=== PATIENT | female | born 1965 | race Caucasian/White ===

== ENCOUNTER → 2023-06-19 12:49 | Outpatient (CLI) | payer BC, SELFPAY ==
--- NOTE | ~2023-06-19 | MM_ITS ---
EXAMINATION: MM screening [facility] BI w [place] HISTORY: Screening mammogram TECHNIQUE: Craniocaudal and mediolateral oblique 3-D tomosynthesis images were obtained and synthetic 2-D images were generated. CAD analysis was submitted and interpreted. COMPARISON: 06/17/2019 bilateral screening mammogram BREAST PARENCHYMAL COMPOSITION: There are scattered areas of fibroglandular density. FINDINGS: There is no evidence of suspicious mass, calcification, or architectural distortion to sugg est malignancy in either breast. There has been no suspicious interval change. IMPRESSION: 1. No mammographic evidence of malignancy. 2. Recommend routine screening mammography in one year. BI-RADS Category 1: Negative Reviewed, dictated and finalized at location A.
== END ==
PROVIDERS: PCP Nurse Practitioner; Visit Provider Nurse Practitioner
DX: Z12.31 Encounter for screening mammogram for malignant neoplasm of breast (principal)
CPT/HCPCS: 77063; 77067

== ENCOUNTER 2024-11-23 12:52 | Outpatient (CLI) | payer BC, SELFPAY ==
--- NOTE | ~2024-11-23 | MM_ITS ---
EXAMINATION: MM screening [facility] BI w [place] HISTORY: Screening TECHNIQUE: Craniocaudal and mediolateral oblique 3-D tomosynthesis images were obtained and synthetic 2-D images were generated. CAD analysis was submitted and interpreted. COMPARISON: Comparison to multiple prior studies sequentially, with oldest reviewed study dated 09/06. BREAST PARENCHYMAL COMPOSITION: Not dense: There are scattered areas of fibroglandular density. FINDINGS: There is no evidence of suspicious mass, calcification, or architectural distortion to sugg est malignancy in either breast. There has been no suspicious interval change. IMPRESSION: 1. No mammographic evidence of malignancy. 2. Recommend routine screening mammography in one year. BI-RADS Category 1: Negative Reviewed, dictated and finalized at location B. Y DIRECTOR
== END 2024-11-23 12:53 | disposition home or self-care (01) ==
LOC: MICIMG 12:53
PROVIDERS: PCP Family Medicine; Visit Provider Nurse Practitioner
DX: Z12.31 Encounter for screening mammogram for malignant neoplasm of breast (principal)
CPT/HCPCS: 77063; 77067

== ENCOUNTER 2024-11-30 08:49 | Outpatient (CLI) | payer BC, SELFPAY ==
--- NOTE | ~2024-11-30 | US_ITS ---
EXAMINATION: US soft tissue abdomen DATE: 11/30/2024 09:07 INDICATION: Unspecified abdominal hernia without obstruction. TECHNIQUE: Multiple grayscale and Doppler ultrasound images of the abdomen were obtained. COMPARISON: None FINDINGS: There are 2 ventral hernias to the right of the umbilicus containing fat. IMPRESSION: 1. Two ventral hernias to the right of the umbilicus containing fat. Reviewed, dictated and finalized at location A. 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
== END 2024-11-30 08:50 | disposition home or self-care (01) ==
LOC: MICIMG 08:49
PROVIDERS: PCP Family Medicine; Visit Provider Family Medicine
DX: K43.9 Ventral hernia without obstruction or gangrene (principal)
CPT/HCPCS: 76705

== ENCOUNTER 2025-01-05 08:12 | Outpatient (CLI) | payer BC, SELFPAY ==
--- NOTE | ~2025-01-05 | CT_ITS ---
Non-contrast CT scan of the Abdomen and Pelvis Clinical indication: Incisional hernia Technique: 2.5 mm axial scans were obtained through the abdomen and pelvis without intravenous or or al contrast. Dose reduction technique was used on this scan by utilizing automated exposure control a nd iterative reconstruction technique. The dose-length product (DLP) was 896.81 mGy-cm. Findings: Images through the lung bases reveal minimal pericardial effusion. There is no evidence of renal or ureteral calculi. The kidneys and the ureters are nondilated. The liver, spleen, pancreas, gallbladder, and adrenals appear normal. There is no aortic aneurysm. There is no evidence of bowel obstruction. There are small ventral fat-containing hernia present supe rior to the umbilicus. Additional small umbilical fat-containing hernia present. Images through the pelvis were performed. There is no evidence of ascites or lymphadenopathy. Urinary bladder unremarkable. No pelvic mass seen. No ascites. Impression: Small fat-containing umbilical hernia. Additional very small fat-containing ventral hernia superior t o the umbilicus. Minimal pericardial effusion. Reviewed, dictated and finalized at location . Impression: Small fat-containing umbilical hernia. Additional very small fat-containing ange tral hernia superior to the umbilicus. Minimal pericardial effusion.
== END 2025-01-05 08:13 | disposition home or self-care (01) ==
LOC: MICIMG 08:12
PROVIDERS: PCP Surgery; Visit Provider Surgery
DX: K42.9 Umbilical hernia without obstruction or gangrene (principal); K43.9 Ventral hernia without obstruction or gangrene; K43.2 Incisional hernia without obstruction or gangrene
CPT/HCPCS: 74176

== ENCOUNTER 2025-01-17 09:28 | Outpatient (CLI) | payer BC, SELFPAY ==
--- NOTE | 2025-01-17 09:39 | ECG_ITS ---
Test Date: 2025-01-17 09:57:22 Measurements Intervals [place] Rate: 64 P: 64 MN: 199 QRS: 35 QRSD: 97 T: 39 QT: 428 QTc: 443 Interpretive Statements SINUS RHYTHM LOW QRS VOLTAGE IN PRECORDIAL LEADS MINIMAL Q WAVES- INFERIOR LEADS BASELINE ARTIFACT- I, III BORDERLINE ECG No previous ECG available for comparison Electronically Signed On 01-17-2025 10:00:32 CDT by Wyatt Mejia D.O.
--- OUTSIDE RECORDS SUMMARY | 2025-01-17 10:26 | XMS_ITS | Encounter Summary ---
Author Organization [facility] Address 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 Gender Identity Not on file Sexual Orientation Not on file documented as of this encounter Plan of Treatment Not on file documented as of this encounter Procedures Procedure Name Priority Date/Time Associated Diagnosis Comments CBC WITH DIFFERENTIAL Routine 03/06/2008 5:01 AM CDT BASIC METABOLIC PANEL Routine 03/06/2008 5:01 AM CDT CBC WITH DIFFERENTIAL Routine 03/01/2008 5:35 AM CDT COMPREHENSIVE METABOLIC PANEL Routine 03/01/2008 5:35 AM CDT CBC WITH DIFFERENTIAL Routine 02/26/2008 5:18 AM CDT CBC WITH DIFFERENTIAL Routine 02/25/2008 6:40 AM CDT COMPREHENSIVE METABOLIC PANEL Routine 02/25/2008 6:40 AM CDT documented in this encounter Results * (ABNORMAL) CBC WITH DIFFERENTIAL (03/06/2008 5:01 AM CDT) RBC 3.90 3.90 - 4.90 M/uL [facility] MCHC 30.8(L) 31.5 - 35.5 % [facility] MCV 89.0 82.0 - 99.0 fL [facility] PLATELETS 457(H) 140 - 350 K/uL [facility] HEMOGLOBIN 10.7(L) 11.8 - 14.8 g/dL [facility] RDW 13.9 11.5 - 14.5 % [facility] WBC 6.2 4.0 - 9.8 K/uL [facility] MCH 27.4 27.2 - 32.6 pg [facility] MPV 9.2(L) 9.3 - 12.4 fL [facility] HEMATOCRIT 34.7(L) 35.5 - 44.0 % [facility] RDW-STDEV 44.7 37.1 - 48.7 fL [facility] MONOCYTE ABSOLUTE 0.59 0.10 - 1.30 K/uL [facility] NEUTROPHILS 39(L) 45 - 70 % [facility] NEUTROPHIL ABSOLUTE 2.40 1.90 - 7.00 K/uL [facility] EOSINOPHILS 2 0 - 7 % [facility] EOSINOPHIL ABSOLUTE 0.15 0.00 - 0.70 K/uL [facility] LYMPHOCYTES 49(H) 16 - 45 % [facility] LYMPHOCYTE ABSOLUTE 3.03 0.70 - 4.50 K/uL [facility] BASOPHILS 1 0 - 2 % [facility] BASOPHILS ABSOLUTE 0.04 0.00 - 0.20 K/uL [facility] MONOCYTES 10 3 - 13 % [facility] Blood specimen (specimen) 03/06/2008 5:01 AM CDT 03/06/2008 6:31 AM CDT Narrative INTERFACE SYSTEM - 03/06/2008 7:51 AM CDT RM 128 us Subha Sosa MD HEMATOLOGY ORDERABLES Edited INTERFACE SYSTEM Refer to clinic/hospital department [facility] CLIA# [id number] [address] [place], [place] [address] * BASIC METABOLIC PANEL (03/06/2008 5:01 AM CDT) GLUCOSE 80 65 - 99 mg/dL [facility] SODIUM 138 135 - 145 mmol/L [facility] CALCIUM 8.5 8.4 - 10.2 mg/dL [facility] CO2 24 22 - 30 mmol/L [facility] CREATININE 0.65 0.51 - 0.95 mg/dL [facility] POTASSIUM 4.6 3.5 - 4.9 mmol/L [facility] BUN 8 6 - 20 mg/dL [facility] CHLORIDE 102 96 - 108 mmol/L [facility] GFR, >60 >=60 mL/min/1.7 sq meter [facility] GFR >60 >=60 mL/min/1.7 sq meter [facility] Comment: Modification of Diet in Renal Disease (MDRD) study formula. Estimated GFR rate interpretative information for both Americans and non- Americans is available on the [facility] Intranet at: [email or web address] Select: Lab Policies and Procedures Select: Reference Ranges - GFR Blood specimen (specimen) 03/06/2008 5:01 AM CDT 03/06/2008 6:31 AM CDT Narrative [facility] - 03/06/2008 7:04 AM CDT RM 128 us Subha Sosa MD CHEMISTRY ORDERABLES Edited [facility] CLIA# [id number] [address] [place] [address] * (ABNORMAL) CBC WITH DIFFERENTIAL (03/01/2008 5:35 AM CDT) HEMATOCRIT 30.0(L) 35.5 - 44.0 % [facility] RDW-STDEV 46.9 37.1 - 48.7 fL [facility] RBC 3.33(L) 3.90 - 4.90 M/uL [facility] MCHC 31.0(L) 31.5 - 35.5 % [facility] MCV 90.1 82.0 - 99.0 fL [facility] PLATELETS 461(H) 140 - 350 K/uL [facility] HEMOGLOBIN 9.3(L) 11.8 - 14.8 g/dL [facility] RDW 14.3 11.5 - 14.5 % [facility] WBC 6.2 4.0 - 9.8 K/uL [facility] MCH 27.9 27.2 - 32.6 pg [facility] MPV 8.6(L) 9.3 - 12.4 fL [facility] BASOPHILS ABSOLUTE 0.02 0.00 - 0.20 K/uL [facility] MONOCYTES 10 3 - 13 % [facility] MONOCYTE ABSOLUTE 0.64 0.10 - 1.30 K/uL [facility] NEUTROPHILS 46 45 - 70 % [facility] NEUTROPHIL ABSOLUTE 2.86 1.90 - 7.00 K/uL [facility] EOSINOPHILS 8(H) 0 - 7 % [facility] EOSINOPHIL ABSOLUTE 0.49 0.00 - 0.70 K/uL [facility] LYMPHOCYTES 35 16 - 45 % [facility] LYMPHOCYTE ABSOLUTE 2.19 0.70 - 4.50 K/uL [facility] BASOPHILS 0 0 - 2 % [facility] Blood specimen (specimen) 03/01/2008 5:35 AM CDT 03/01/2008 6:53 AM CDT Narrative INTERFACE SYSTEM - 03/01/2008 7:30 AM CDT RM 128 Kai Arriaza MD HEMATOLOGY ORDERABLES Edited INTERFACE SYSTEM Refer to clinic/hospital department [facility] CLIA# [id number] [address] [place] [place] [address] * (ABNORMAL) COMPREHENSIVE METABOLIC PANEL (03/01/2008 5:35 AM CDT) ALKALINE PHOSPHATASE 73 35 - 104 U/L [facility] BILIRUBIN TOTAL 0.2 0.2 - 1.0 mg/dL [facility] CO2 24 22 - 30 mmol/L [facility] TOTAL PROTEIN 5.5(L) 6.3 - 8.6 g/dL [facility] POTASSIUM 4.1 3.5 - 4.9 mmol/L [facility] GLUCOSE 77 65 - 99 mg/dL [facility] AST 12 12 - 32 U/L [facility] BUN 7 6 - 20 mg/dL [facility] CALCIUM 7.9(L) 8.4 - 10.2 mg/dL [facility] CHLORIDE 105 96 - 108 mmol/L [facility] ALBUMIN 2.5(L) 3.4 - 4.8 g/dL [facility] CREATININE 0.62 0.51 - 0.95 mg/dL [facility] SODIUM 138 135 - 145 mmol/L [facility] ALT 11 0 - 31 U/L [facility] GFR, >60 >=60 mL/min/1. 7 sq meter [facility] GFR >60 >=60 mL/min/1. 7 sq meter [facility] Comment: Modification of Diet in Renal Disease (MDRD) study formula. Estimated GFR rate interpretative information for both Americans and non- Americans is available on the [facility] Intranet at: [email or web address] Select: Lab Policies and Procedures Select: Reference Ranges - GFR Blood specimen (specimen) 03/01/2008 5:35 AM CDT 03/01/2008 6:53 AM CDT Narrative [facility] - 03/01/2008 7:34 AM CDT 128 Kai Arriaza MD CHEMISTRY ORDERABLES Edited [facility] CLIA# [id number] [address] [place], [place] [address] * (ABNORMAL) CBC WITH DIFFERENTIAL (02/26/2008 5:18 AM CDT) HEMATOCRIT 28.7(L) 35.5 - 44.0 % [facility] WBC 5.6 4.0 - 9.8 K/uL [facility] MCHC 30.3(L) 31.5 - 35.5 % [facility] MPV 8.3(L) 9.3 - 12.4 fL [facility] HEMOGLOBIN 8.7(L) 11.8 - 14.8 g/dL [facility] RDW-STDEV 47.1 37.1 - 48.7 fL [facility] MCH 27.2 27.2 - 32.6 pg [facility] PLATELETS 529(H) 140 - 350 K/uL [facility] MCV 89.7 82.0 - 99.0 fL [facility] RBC 3.20(L) 3.90 - 4.90 M/uL [facility] RDW 14.3 11.5 - 14.5 % [facility] LYMPHOCYTES 35 16 - 45 % [facility] LYMPHOCYTE ABSOLUTE 1.94 0.70 - 4.50 K/uL [facility] BASOPHILS 1 0 - 2 % [facility] BASOPHILS ABSOLUTE 0.03 0.00 - 0.20 K/uL [facility] MONOCYTES 12 3 - 13 % [facility] MONOCYTE ABSOLUTE 0.67 0.10 - 1.30 K/uL [facility] NEUTROPHILS 49 45 - 70 % [facility] NEUTROPHIL ABSOLUTE 2.70 1.90 - 7.00 K/uL [facility] EOSINOPHILS 4 0 - 7 % [facility] EOSINOPHIL ABSOLUTE 0.23 0.00 - 0.70 K/uL [facility] Blood specimen (specimen) 02/26/2008 5:18 AM CDT 02/26/2008 6:36 AM CDT Narrative INTERFACE SYSTEM - 02/26/2008 8:08 AM CDT 128 us Subha Sosa MD HEMATOLOGY ORDERABLES Edited INTERFACE SYSTEM Refer to clinic/hospital department [facility] CLIA# [id number] [address] [facility] [place], [place] [address] * (ABNORMAL) CBC WITH DIFFERENTIAL (02/25/2008 6:40 AM CDT) MPV 8.4(L) 9.3 - 12.4 fL [facility] HEMATOCRIT 28.6(L) 35.5 - 44.0 % [facility] RDW-STDEV 45.5 37.1 - 48.7 fL [facility] RBC 3.25(L) 3.90 - 4.90 M/uL [facility] MCHC 31.1(L) 31.5 - 35.5 % [facility] MCV 88.0 82.0 - 99.0 fL [facility] PLATELETS 503(H) 140 - 350 K/uL [facility] HEMOGLOBIN 8.9(L) 11.8 - 14.8 g/dL [facility] RDW 14.2 11.5 - 14.5 % [facility] WBC 5.6 4.0 - 9.8 K/uL [facility] MCH 27.4 27.2 - 32.6 pg [facility] BASOPHILS 1 0 - 2 % [facility] BASOPHILS ABSOLUTE 0.04 0.00 - 0.20 K/uL [facility] MONOCYTES 10 3 - 13 % [facility] MONOCYTE ABSOLUTE 0.56 0.10 - 1.30 K/uL [facility] NEUTROPHILS 54 45 - 70 % [facility] NEUTROPHIL ABSOLUTE 3.06 1.90 - 7.00 K/uL [facility] EOSINOPHILS 4 0 - 7 % [facility] EOSINOPHIL ABSOLUTE 0.20 0.00 - 0.70 K/uL [facility] LYMPHOCYTES 32 16 - 45 % [facility] LYMPHOCYTE ABSOLUTE 1.78 0.70 - 4.50 K/uL [facility] Blood specimen (specimen) 02/25/2008 6:40 AM CDT 02/25/2008 7:17 AM CDT Narrative INTERFACE SYSTEM - 02/25/2008 7:58 AM CDT 128 us Osmin Schmidt MD HEMATOLOGY ORDERABLES Edited INTERFACE SYSTEM Refer to clinic/hospital department [facility] CLIA# [id number] [address] [place] [address] * (ABNORMAL) COMPREHENSIVE METABOLIC PANEL (02/25/2008 6:40 AM CDT) CREATININE 0.58 0.51 - 0.95 mg/dL [facility] SODIUM 138 135 - 145 mmol/L [facility] ALT 10 0 - 31 U/L [facility] ALKALINE PHOSPHATASE 73 35 - 104 U/L [facility] BILIRUBIN TOTAL 0.3 0.2 - 1.0 mg/dL [facility] CO2 25 22 - 30 mmol/L [facility] TOTAL PROTEIN 5.0(L) 6.3 - 8.6 g/dL [facility] POTASSIUM 3.7 3.5 - 4.9 mmol/L [facility] GLUCOSE 81 65 - 99 mg/dL [facility] AST 15 12 - 32 U/L [facility] BUN 5(L) 6 - 20 mg/dL [facility] CALCIUM 7.6(L) 8.4 - 10.2 mg/dL [facility] CHLORIDE 104 96 - 108 mmol/L [facility] ALBUMIN 2.1(L) 3.4 - 4.8 g/dL [facility] GFR, >60 >=60 mL/min/1. 7 sq meter [facility] GFR >60 >=60 mL/min/1. 7 sq meter [facility] Comment: Modification of Diet in Renal Disease (MDRD) study formula. Estimated GFR rate interpretative information for both Americans and non- Americans is available on the [facility] Intranet at: [email or web address] Select: Lab Policies and Procedures Select: Reference Ranges - GFR Blood specimen (specimen) 02/25/2008 6:40 AM CDT 02/25/2008 7:17 AM CDT Narrative [facility] - 02/25/2008 7:54 AM CDT RM 128 us Osmin Schmidt MD CHEMISTRY ORDERABLES Edited [facility] CLIA# [id number] [address] [place] [address] documented in this encounter Visit Diagnoses Not on filedocumented in this encounter
--- OUTSIDE RECORDS SUMMARY | 2025-01-17 10:26 | XMS_ITS | Encounter Summary ---
Author Organization [facility] Address 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 Gender Identity Not on file Sexual Orientation Not on file documented as of this encounter Plan of Treatment Not on file documented as of this encounter Procedures Procedure Name Priority Date/Time Associated Diagnosis Comments XR FINGER THUMB RIGHT Routine 03/04/2008 1:15 PM CDT documented in this encounter Results * XR FINGER THUMB RIGHT (03/04/2008 1:15 PM CDT) Anatomical Region Laterality Modality Wrist / Hand Other 03/04/2008 1:15 PM CDT Narrative 03/04/2008 4:08 PM CDT [address] [address] Admit Date: 03/04/2008 ASHLEE FREDERICK Sex: F Admit Prov: CLIFFORD ALVES Date: 1965 Primary Care Prov: PCP, UNKNOWN CMRN: [id number] Room: [facility] N: [id number] IMAGING SERVICES Ordering Prov: N/A Accession Number: [id number] Interpretation RIGHT FINGERS 3 VIEWS, 03/04/2008 Clinical History: Fractures. Findings: There are K wires stabilizing fractures of the first distal phalanx and the fifth middle and proximal phalanges. There is also a fracture of the tuft of the fifth distal phalanx. No calcified callus is identified. Impression: Status post pinning of right first and fifth finger fractures. . Dictated by: SHELLY GARDINER 03/04/2008 13:33 Electronically signed by: SHELLY GARDINER 03/04/2008 16:08 Transcribed: 03/04/2008 14:57 SMM Procedure Note Shelly Gardiner MD - 03/04/2008 [id number] [place], [place] [address] Admit Date: 03/04/2008 ASHLEE FREDERICK Sex: F Admit Prov: CLIFFORD ALVES Date: 1965 Primary Care Prov: PCP, UNKNOWN CMRN: [id number] [id number] [facility] Ordering Prov: N/A Interpretation RIGHT FINGERS 3 VIEWS, 03/04/2008 Clinical History: Fractures. Findings: There are K wires stabilizing fractures of the firstdistal phalanx and the fifth middle and proximal phalanges. There is alsoa fracture of the tuft of the fifth distal phalanx. No calcified callusis identified. Impression: Status post pinning of right first and fifth fingerfractures. . Dictated by: SHELLY GARDINER 03/04/2008 13:33 Electronically signed by: SHELLY GARDINER 03/04/2008 16:08 Transcribed: 03/04/2008 14:57 SMM Clifford Alves MD DIAGNOSTIC IMAGING ORDERABLES Final Result documented in this encounter Visit Diagnoses Diagnosis Other orthopedic aftercare(V54.89) Other orthopedic aftercare documented in this encounter
--- OUTSIDE RECORDS SUMMARY | 2025-01-17 10:26 | XMS_ITS | Encounter Summary ---
Author Organization [facility] Address [address] 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
--- OUTSIDE RECORDS SUMMARY | 2025-01-17 10:26 | XMS_ITS | Continuity of Care Document ---
Author Organization [facility] Address [address] [place] [address] Phone Care Team Providers Care Weather Forcaster Name Role Phone Alexandru York Unavailable Unavailable Advance Directives Directive Yes / No Effective Date File Name No Information Encounters Encounter Description Practice Location Reason(s) For Visit Diagnoses Date Provider Providers Copied on Encounter [facility], [address], [place], [place], [id number], [place] tel:[phone] [facility] No Information 0-200 [address] Do[address] Edward. [address] , [address], [place], [address], [place]. tel:[phone] Referring Provider: Osmin Arellano MD, [address], [place], [address]. tel:[phone] Family History Family Member Type Diagnosis Age At Onset No Information Payers Payer name Insurance type Covered libertarian ID Authoriza tion(s) No Information Social History Type Description Quantity Date Captured Comments Sex Female Smoking Status No Information Chief Complaint And Reason For Visit No Information Reason For Referral Reason For Referral No Information History Of Present Illness Encounter Date Complaint History Of Prese nt Illness No Information Functional Status Date Functional Assessmen t No Information Instructions Date Instruction Additional Infor mation No Information Assessments Type Assessment Date No Information Patient Care Teams Name Effective Dates (start - stop) Status Members No Information
--- OUTSIDE RECORDS SUMMARY | 2025-01-17 10:26 | XMS_ITS | Encounter Summary ---
Author Organization [facility] Address [address] [place] [address] Care Team Providers Care Professional Application Designer Name Role Phone Unavailable Primary Care Provider Unavailabl e Encounter Details Date Type Department Care Team (Late st Contact Info) Description 12/20/2008 Outpatient Historical HIS ORTHOPEDIC TRAUMA JemRaul, DO [address] [facility] [address] [place] [address] Social History Tobacco Use Types Packs/Day Years Used Date Smoking Tobacco: Never Alcohol Use Standard Drinks/Week Comments Not Asked 0 (1 standard drink = 0.6 oz pur e alcohol) Comments No Sex and Gender Information Value Date Recorded Sex Assigned at Not on file 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
--- OUTSIDE RECORDS SUMMARY | 2025-01-17 10:26 | XMS_ITS | Encounter Summary ---
Author Organization [facility] Address 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 Gender Identity Not on file Sexual Orientation Not on file documented as of this encounter Plan of Treatment Not on file documented as of this encounter Procedures Procedure Name Priority Date/Time Associated Diagnosis Comments XR WRIST 3+ VW LEFT Routine 06/28/2008 3 :04 PM CDT documented in this encounter Results * XR WRIST 3+ VW LEFT (06/28/2008 3:04 PM CDT) Anatomical Region Laterality Modality Wrist / Hand Other 06/28/2008 3:04 PM CDT Narrative 07/04/2008 1:59 PM CDT [facility] [place], [place] [address] [place], [place] [address] Admit Date: 06/28/2008 ASHLEE FREDERICK Sex: F Admit Prov: JANES PARISH Date: 1965 Primary Care Prov: CMRN: [id number] Room: [facility] SSN: [id number] IMAGING SERVICES Ordering Prov: JANES PARISH Accession Number: [id number] Interpretation This procedure was performed at the request of the orthopedic physician. Please see the orthopedic physician s report for details, which can be found in the patient s medical record. _ Dictated by: RADIOLOGY, DEPARTMENT O Electronically signed by: RADIOLOGY, DEPARTMENT 07/04/2008 13:56 Transcribed: 07/04/2008 13:52 AMK Procedure Note Radiology, Radiologist - 07/04/2008 [facility] [place], [place] [address] [place], [place] [address] Admit Date: 06/28/2008 ASHLEE FREDERICK Sex: F Admit Prov: JANES PARISH Date: 1965 Primary Care Prov: CMRN: [id number] Room: [facility] SSN: [id number] IMAGING SERVICES Ordering Prov: JANES PARISH Interpretation This procedure was performed at the request of the orthopedicphysician. Please see the orthopedic physician s report for details, which canbe found in the patient s medical record. _ Dictated by: RADIOLOGY, DEPARTMENT O Electronically signed by: RADIOLOGY, DEPARTMENT 07/04/2008 13:56 Transcribed: 07/04/2008 13:52 AMK us Janes Parish DO DIAGNOSTIC IMAGING ORDERABLES Final Result documented in this encounter Visit Diagnoses Not on filedocumented in this encounter
--- OUTSIDE RECORDS SUMMARY | 2025-01-17 10:26 | XMS_ITS | Encounter Summary ---
Author Organization [facility] Address [address] [place] [address] Care Team Providers Care Salesforce Business Analyst Name Role Phone Unavailable Primary Care Provider Unavailabl e Encounter Details Date Type Department Care Team (Late st Contact Info) Description 04/19/2008 Outpatient Historical HIS ORTHOPEDIC TRAUMA Janes Parish, DO [address] 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 Gender Identity Not on file Sexual Orientation Not on file documented as of this encounter Plan of Treatment Not on file documented as of this encounter Procedures Procedure Name Priority Date/Time Associated Diagnosis Comments XR WRIST 3+ VW LEFT Routine 04/19/2008 1 2:55 PM CDT documented in this encounter Results * XR WRIST 3+ VW LEFT (04/19/2008 12:55 PM CDT) Anatomical Region Laterality Modality Wrist / Hand Other 04/19/2008 12:5 5 PM CDT Narrative 06/02/2008 8:40 PM CDT [facility] [address] [place], [place] [address] Admit Date: 04/19/2008 ASHLEE FREDERICK Sex: F Admit Prov: JANES PARISH Date: 1965 Primary Care Prov: CMRN: [id number] Room: [facility] SSN: [id number] IMAGING SERVICES Ordering Prov: JANES PARISH Accession Number: [id number] Interpretation This procedure was performed at the request of the orthopedic physician. Please see the orthopedic physician s report for details, which can be found in the patient s medical record. Dictated by: RADIOLOGY, DEPARTMENT O Electronically signed by: RADIOLOGY, DEPARTMENT 06/02/2008 20:39 Transcribed: 06/02/2008 20:20 AMK Procedure Note Provider, Historical - 06/02/2008 [facility] [address] [place], [place] [address] Admit Date: 04/19/2008 ASHLEE FREDERICK Sex: F Admit Prov: JANES PARISH Date: 1965 Primary Care Prov: CMRN: [id number] Room: [facility] SSN: [id number] IMAGING SERVICES Ordering Prov: JANES PARISH Interpretation This procedure was performed at the request of the orthopedicphysician. Please see the orthopedic physician s report for details, which canbe found in the patient s medical record. Dictated by: RADIOLOGY, DEPARTMENT O Electronically signed by: RADIOLOGY, DEPARTMENT 06/02/2008 20:39 Transcribed: 06/02/2008 20:20 AMK us Janes Parish DO DIAGNOSTIC IMAGING ORDERABLES Final Result documented in this encounter Visit Diagnoses Not on filedocumented in this encounter
--- OUTSIDE RECORDS SUMMARY | 2025-01-17 10:26 | XMS_ITS | Data Portability ---
Author Organization [facility], Brady Address [address] [place] [address] Care Team Providers Care Dish Carrier Name Role Phone BILL FLOYD Primary Care Provider Assessment Encounter Date Assessment Date Assessment LastModified by Organization Details LastModified Time 05/15/2023 05/15/2023 Annual gynecological exam performed. Patient will come back in a year unless there are new symptoms. [email or web address] Not available 05/15/2023 10:41:42 05/17/2024 05/17/2024 Annual gynecological exam performed. Patient will come back in a year unless there are new symptoms. [email or web address] Not available 05/17/2024 09:27:12 Plan of Treatment Reminders Order Date Submit Date Provider Last Modified By Organization Details Last Modified Time Details Appointments None recorded. Lab None recorded. Referral None recorded. Procedures None recorded. Surgeries None recorded. Imaging MAMMO, screening, digital, bilateral 2023 024 [facility], [address], [place], [address], 5 05:01:19 MAMMO, screening, digital, bilateral 2022 023 [facility], [address], [place], [address], 3 15:17:41 Medication Orders None recorded. Patient TargetsNo targets recorded. Patient InstructionsNo instructions recorded. Reason for Referral None Reported. Results Created Date Observation Date Name Description Value Unit Range Abnormal Flag Note LastModifiedBy Organization Detail LastModifiedTime 05/15/20 23 05/15/2023 IMAGE GUIDE D PAP AND HPV REGAR DLESS image guided Pap, HPV regardless of Pap result SEE RESULT S BELOW CASE REPOR T: Cytol ogy Gynec ologi david Repor t Case: [id number] Autho eva loera Provi agustina: Thea Domínguez, STEWARD/STEWARDESS THIRD Colle cted: 05/15 1106 Order ing Locat ion: [place] Patho log[facility] Recei luis: 05/16 0613 First Scree n: Michael jacobs, Mindy ed, CT Rescr een: Florencio Harrington, CT Speci men: Scree reji Pap - Image d, Cervi x STATE MENT OF ADEQU ACY: Satis facto ry for evalu ation Trans forma tion zone compo nent absen t The absen ce of an endoc ervic al compo nent was confi rmed by an addit ional scree ner. FINAL DIAGN OSIS: Negat sho for Intra epith elial Lesio n or Melisa walden (NIL) . Funga l organ isms morph ologi liz consi stent with Saloni da spp. Elect eric valencia candace d by Florencio Harrington, CT on 2022 at 10:13 AM ----- ----- ----- ----- ----- ----- ----- ----- ----- ----- ----- ----- ----- ----- ----- ----- ----- ---- HPV RESUL TS: HPV mRNA E6/E7 : No HPV mRNA Detec renard NOTE: This high risk HPV mRNA assay detec ts fourt een high- risk HPV types (16, 18, 31, 33, 35, 39, 45, 51, 52, 56, 58, 59, 66, 68) witho ut diffe renti ation . COMME NT: This speci men was revie wed by a Cytot echno logis t and/o r Patho logis t (as indic ated in this repor t) after evalu ation using the Thinp rep Imagi ng Syste m. CLINI DAVID INFOR MATIO N: Menst rual Statu s: LMP (if appli cable ): Clini david Histo ry/Pr eviou s Pap: Type of Neopl ivan (if appli cable ): Signi fican t Clini david Findi ngs: Other Histo ry: Hormo antonia (if appli cable ): PAP EDUCA DENISSE L NOTE: The Pap Test is a scree reij test with an inher ent false negat sho rate. Liqui d-bas ed sampl ing may decre ase, but will not elimi sierra, false negat sho resul ts. A negat sho resul t does not precl ude the prese nce and/o r devel opmen t of disea se, since the prese nce of abnor mal cells in the sampl e depen ds on the locat ion of the lesio n and sampl ing techn ique. Jerome nued regul ar scree reji is the best metho d of cance r preve ntion . If repor renard cytol ogic findi ng do not corre late with physi david and/o r histo rical findi ngs, furth er inves tigat ion is recom yanci d, as clini liz rodriguez nted. Not Available [facility] (Lab) [address], [place], [address], 05/19/2023 11:17:00 05/17/20 24 05/17/2024 IMAGE GUIDE D PAP AND HPV REGAR DLESS image guided Pap, HPV regardless of Pap result SEE RESULT S BELOW CASE REPOR T: Cytol ogy Gynec ologi david Repor t Case: [id number] Autho ripadminin g Provi agustina: Thea Domínguez, DIONTE Colle cted: 05/17 0955 Order ing Locat ion: [place] Patho [place] Recei luis: 05/18 0751 First Scree n: McBri de, Geraldine ret, CT Speci men: Scree reji Pap - Image d, Cervi x STATE MENT OF ADEQU ACY: Satis facto ry for evalu ation Trans forma tion zone compo nent prese nt ----- ----- ----- ----- ----- ----- ----- ----- ----- ----- ----- ----- ----- ----- ----- ----- ----- ---- FINAL DIAGN OSIS: Negat sho for Intra epith elial Lesio n or Melisa walden (NIL) . Shift in jair sugge stive of bacte rial vagin osis. Elect eric rosa by Geraldine Patel ret, CT on 2023 at 5:30 AM ----- ----- ----- ----- ----- ----- ----- ----- ----- ----- ----- ----- ----- ----- ----- ----- ----- ---- HPV RESUL TS: HPV mRNA E6/E7 : No HPV mRNA Detec renard NOTE: This high risk HPV mRNA assay detec ts fourt een high- risk HPV types (16, 18, 31, 33, 35, 39, 45, 51, 52, 56, 58, 59, 66, 68) witho ut diffe renti ation . COMME NT: This speci men was revie wed by a Cytot echno logis t and/o r Patho logis t (as indic ated in this repor t) after evalu ation using the Thinp rep Imagi ng Syste m. CLINI DAVID INFOR MATIO N: Menst rual Statu s: LMP (if appli cable ): Clini david Histo ry/Pr eviou s Pap: Type of Neopl ivan (if appli cable ): Signi kevin t Clini david Findi ngs: Other Histo ry: Hormo antonia (if appli cable ): PAP EDUCA DENISSE L NOTE: The Pap Test is a scree reji test with an inher ent false negat sho rate. Liqui d-bas ed sampl ing may decre ase, but will not elimi sierra, false negat sho resul ts. A negat sho resul t does not precl ude the prese nce and/o r devel opmen t of disea se, since the prese nce of abnor mal cells in the sampl e depen ds on the locat ion of the lesio n and sampl ing techn ique. Jerome nued regul ar scree reji is the best metho d of cance r preve ntion . If repor renard cytol ogic findi ng do not corre late with physi david and/o r histo rical findi ngs, furth er inves tigat ion is recom yanci d, as clini liz rodriguez nted. Not Available [facility] (Lab) [address], [place], [address], 05/23/2024 06:34:04 06/19/20 23 06/19/2023 MAMMO , scree reji, digit al, bilat eral No observ ation record ed. [facility] [address], [place], [address], 06/19/2023 23:02:44 11/23/19 25 11/23/2024 MAMMO , scree reji, digit al, bilat eral No observ ation record ed. [facility] [address], [place], [address], 11/24/2024 18:56:29 Result Notes None recorded. Problems Name Problem SNOMED Code Status Onset Date Resolution Date Notes Provider Name and Address Organization Details Recorded Time Screening for malignant neoplasm of rectum Active 2018 Encounter for screening for malignant neoplasm of rectum;Pr actice ID: [id number] Not Available [facility] 0 14:23:59 Finding of body mass index 050153612 Active 2018 Body mass index (BMI) 40.0-44.9 , adult;Pra ctice ID: 0001 Not Available [facility] 0 14:23:59 Specializ ed medical examinati on Active 2012 Gynecolog ical Examinati on;Record ed Elsewhere : No Locati on: [facility] So urce: EHR Chron ic: N Practic e ID: 0001 Bill able Time: 09:30:00 AM Not Available [facility] 0 14:[facility]:[address] Concept Active 2017 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) w/o abn findings; Recorded Elsewhere : No Locati on: [facility] So urce: EHR Chron ic: N Practic e ID: 0001 Bill able Time: 09:30:00 AM Not Available [facility] 0 14:23:59 Low grade squamous intraepit helial lesion on cervical Papanicol aou smear 01565855532 105 Active 2016 Low grade squamous intraepit helial lesion on cytologic smear of cervix (LGSIL);R ecorded Elsewhere : No Locati on: [facility] So urce: EHR Chron ic: N Practic e ID: 0001 Bill able Time: 09:15:00 AM Not Available [facility] 0 14:24:[address] Concept Active 2017 Encntr for general adult medical exam w/o abnormal findings; Recorded Elsewhere : No Locati on: [facility] So urce: EHR Chron ic: N Practic e ID: 0001 Bill able Time: 09:30:00 AM Not Available [facility] 0 14:24:00 Screening for malignant neoplasm of cervix Active 2011 Screening for malignant neoplasms of the cervix;Re corded Elsewhere : No Locati on: [facility] So urce: EHR Chron ic: N Practic e ID: 0001 Bill able Time: 01:00:00 PM Not Available [facility] 0 14:24:00 Cytologic finding 862906738 Active 2014 Cervical Pap smear w/ LGSIL;Rec orded Elsewhere : No Locati on: [facility] So urce: EHR Chron ic: N Practic e ID: 0001 Bill able Time: 01:00:00 PM Not Available [facility] 0 14:24:00 Evaluatio n finding Active 2017 Hematuria , unspecifi ed;Record ed Elsewhere : No Locati on: [facility] So urce: EHR Chron ic: N Practic e ID: 0001 Bill able Time: 09:30:00 AM Not Available [facility] 0 14:24:00 Adult health examinati on Active 2013 ROUTINE MEDICAL EXAM;Umer rded Elsewhere : No Locati on: [facility] So urce: EHR Chron ic: N Practic e ID: 0001 Bill able Time: 01:00:00 PM Not Available [facility] 0 14:24:00 Radiologi c finding 949429811 Active 2017 Oth abn and inconclus sho findings on dx imaging of breast;Re corded Elsewhere : No Locati on: [facility] So urce: EHR Chron ic: N Practic e ID: 0001 Bill able Time: 01:05:53 PM Not Available [facility] 0 14:24:00 Hypertrop hy of uterus 115482270 Active 2011 Hypertrop hy of uterus;Re corded Elsewhere : No Locati on: [facility] So urce: EHR Chron ic: N Practic e ID: 0001 Bill able Time: 11:00:00 AM Not Available [facility] 0 14:24:00 Atypical squamous cells of undetermi frederick significa nce on cervical Papanicol aou smear 801299220 Active 2018 Atyp squam cell of undet signfc cyto smr crvx (ASC-US); Recorded Elsewhere : No Locati on: [facility] So urce: EHR Chron ic: N Practic e ID: 0001 Bill able Time: 11:39:14 AM Not Available [facility] 0 14:24:01 Procedure on genitouri nary system Active 2011 Steriliza tion;Umer rded Elsewhere : No Locati on: [facility] So urce: EHR Chron ic: N Practic e ID: 0001 Bill able Time: 10:15:00 AM Not Available [facility] 0 14:24:01 test negative 257370539 Active 2011 examinati on or test, negative result;Re corded Elsewhere : No Locati on: [facility] So urce: EHR Chron ic: N Practic e ID: 0001 Bill able Time: 02:00:00 PM Not Available [facility] 0 14:24:01 Atypical glandular cells on cervical Papanicol aou smear 353573260 Active 2014 Abnormal glandular Papanicol aou smear of cervix;Re corded Elsewhere : No Locati on: [facility] So urce: EHR Chron ic: N Practic e ID: 0001 Bill able Time: 01:00:00 PM Not Available [facility] 0 14:24:01 Cyst of ovary 47394548 Active 2011 Other and unspecifi ed ovarian cyst;Umer rded Elsewhere : No Locati on: [facility] So urce: EHR Chron ic: N Practic e ID: 0001 Bill able Time: 01:00:00 PM Not Available [facility] 0 14:24:02 Screening for malignant neoplasm of colon Active 2010 Special screening for malignant neoplasms , colon;Pra ctice ID: 0001 Not Available [facility] 0 14:24:02 History of tubal ligation 262197985 Active 2012 Tubal ligation status;Pr actice ID: 0001 Not Available [facility] 0 14:24:[address] Concept Active 2017 Encounter for general adult medical exam w abnormal findings; Practice ID: 0001 Not Available [facility] 0 14:24:04 Problem Notes None recorded. Procedures Surgical History Date Name Laterality Status Provider Name and Address Organization Details Recorded Time Appendectomy completed Bettina Dumont [facility] 05/17/2024 09:41:53 Imaging Results Imaging Date Name Status LastModified by Organiz ation Details LastModified Time 06/19/2023 MAMMO, screening, digital, bilateral completed [facility] [address], [place], [address], 06/19/2023 23:02:44 11/23/2024 MAMMO, screening, digital, bilateral completed [facility] [address], [place], [address], 11/24/2024 18:56:29 Procedure Notes None recorded. Medical Equipment None Reported. Allergies No known drug allergies Medications Name Sig Start Date Stop Date Status Note LastModified by Organization Details LastModified Time Vicodin 5 mg-500 mg tablet take 2 Tablet by Oral route for 1 day take 2 hours before procedur e and 1-2 tabs every 4hrs prn 08/13 completed Prescrib ed Elsewher e: No Locat ion: Megan seth [facility] odify By: devon shaw DateTime : 07/30/20 12 09:08:08 AM Not Available Not Available Not Available atovaquon e 250 mg-progua nil 100 mg tablet 05/17 completed Not Available Not Available Not Available lisinopri l 20 mg tablet 05/15 completed Not Available Not Available Not Available chlorthal idone 25 mg tablet take 1 tablet by oral route every day active Not Available Not Available No t Available Celebrex 200 mg capsule take 1 by Oral route po night before and 400mg po morning of procedur e 08/13 completed Prescrib ed Elsewher e: No Locat ion: Lalito rolo [facility] odify By: devon shaw DateTime : 07/30/20 12 09:08:08 AM Not Available Not Available Not Available lisinopri l 10 mg tablet take 1 tablet by oral route every day 05/17 completed Prescrib ed Elsewher e: Yes [facility] By: henry friedmanunter DateTime : 07/08/20 17 09:15:00 AM Not Available Not Available Not Available lisinopri l 5 mg tablet 05/17 completed Not Available Not Available Not Available diazepam 10 mg tablet take 1 tablet (10MG) by oral route 1-2 hours before procedur e 08/13 completed Prescrib ed Elsewher e: No Locat ion: [facility] odify By: devon shaw DateTime : 07/30/20 12 09:08:08 AM Not Available Not Available Not Available ketorolac 60 mg/2 mL intramusc ular solution inject 1 millilit er (30MG) by intramus cular route , pt to bring to office 08/13 completed Prescrib ed Elsewher e: No Locat ion: [facility] M odify By: devon shaw DateTime : 07/30/20 09:08:08 AM Not Available Not Available Not Available Lo Loestrin Fe 1 mg-10 mcg (24)/10 mcg (2) tablet take 1 tablet by oral route every day 08/13 completed Prescrib ed Elsewher e: No Locat ion: [facility] M odify By: devon shaw DateTime : 06/19/20 12 11:37:49 AM Not Available Not Available Not Available BinaxNOW COVID-19 Ag Self Test kit TEST DIRECTED TODAY 05/15 completed Not Available Not Available Not Available Zepbound 10 mg/0.5 mL subcutane ous pen injector ADMINIST ER 10 MG UNDER THE SKIN WEEKLY 05/17 completed Not Available Not Available Not Available Zepbound 2.5 mg/0.5 mL subcutane ous pen injector ADMINIST ER 2.5 MG UNDER THE SKIN WEEKLY FOR 4 WEEKS 05/17 completed Not Available Not Available Not Available Zepbound 15 mg/0.5 mL subcutane ous pen injector ADMINIST ER 15 MG UNDER THE SKIN WEEKLY active Not Available Not Available No t Available Zepbound 12.5 mg/0.5 mL subcutane ous pen injector ADMINIST ER 12.5 MG UNDER THE SKIN WEEKLY 05/17 completed Not Available Not Available Not Available Zepbound 7.5 mg/0.5 mL subcutane ous pen injector ADMINIST ER 7.5 MG UNDER THE SKIN WEEKLY 05/17 completed Not Available Not Available Not Available Vitals Date Recorded Body height Body mass index (BMI) Body weight Systolic blood pressure Diastolic blood pressure Provider Name and Address Organization Details Last Updated DateTime 05/15/2023 170.18 cm 38.4 kg/m2 843094.1 3 g 116 mm[Hg] 76 mm[Hg] Debbie Vizcaino [facility] 3 10:42:07 Date Recorded Body height Body mass index (BMI) Body weight Systolic blood pressure Diastolic blood pressure Provider Name and Address Organization Details Last Updated DateTime 05/17/2024 170.18 cm 33.7 kg/m2 69154.36 g 112 mm[Hg] 78 mm[Hg] Bettina Dumont [facility] 4 09:40:09 Social History Question Answer Notes LastModified by Organizat ion Details LastModified Time Tobacco Smoking Status Never Smoker Bettina Dumont null, [facility] 05/17/2024 09:29:09 What Is Your Level Of Alcohol Consumption? Occasional Information not available 05/15/2023 Are You Blind Or Do You Have Difficulty Seeing? No Information n ot available 05/15/2023 What Is Your Level Of Caffeine Consumption? Occasional Information not available 05/15/2023 In The 14 Days Before Symptom Onset, Have You Had Close Contact With A Laboratory-confirm ed COVID-19 While That Case Was Ill? No Information n ot available 05/15/2023 In The 14 Days Before Symptom Onset, Have You Had Close Contact With A Person Who Is Under Investigation For COVID-19 While That Person Was Ill? No Information not available 05/15/2023 Have You Been To An Area Known To Be High Risk For COVID-19? No Information not available 05/15/2023 Are You Deaf Or Do You Have Serious Difficulty Hearing? No Information not available 05/15/2023 What Type Of Diet Are You Following? REGULAR Information n ot available 05/15/2023 What Is The Highest Grade Or Level Of School You Have Completed Or The Highest Degree You Have Received? 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 Yes Information not available 05/15/2023 Do You Use Protection During Sex? No Information not available 05/15/2023 Do You Use Your Seat Belt Or Car Seat Routinely? Yes Information not available 05/15/2023 Do You Have Smoke And Carbon Monoxide Detectors In Your Home? Yes Information not available 05/15/2023 How Much Tobacco Do You Smoke? No Information not available 05/15/2023 Do You Feel Stressed (tense, Restless, Nervous, Or Anxious, Or Unable To Sleep At Night)? [id number] Information not available 05/15/2023 Do You Use Any Illicit Or Recreational Drugs? No Information not available 05/15/2023 Do You Use Sunscreen Routinely? Yes Information not available 05/15/2023 Have You Used IV Drugs? No Information not available 05/15/2023 Sex: Unknown Functional Status Question Answer Note LastModified by Organizat ion Details LastModified Time Do you have difficulty walking or climbing stairs? No Information not available 05/15/2023 Are you able to walk? YESWOREST Information not available 05/15/2023 Are you able to care for yourself? Yes Information not available 05/15/2023 Do you have difficulty dressing or bathing? No Information not available 05/15/2023 What is your exercise level? Occasional Information not available 05/15/2023 Mental Status None recorded. Family History Nothing Reported Notes:Brother: Congenital he art disease Father: [place] Mother: Diabetes mellitus, CVA with procedure- emphysema, smoker Medical History Condition Response Allergies (Food, seasonal, environmental ) N Other N Breast Cancer N Drug/Latex Allergies/Reactions N Blood Transfusion N Dermatologic Disorders N Lung Disease N Defects or Inherited Disease N Breast Problem N Gestational Diabetes N Hematologic disorders N Anesthesia Complications N History of STI N Deep Vein Thrombosis N Polycystic ovary syndrome N Anxiety Disorder N Autoimmune disease N Arthritis N Infertility N Polyps N Acid Reflux (GERD) N History of abnormal pap N Cancer N Stroke N Varicosities N Neurologic/Epilepsy N Endometriosis N High Cholesterol N Headaches N Fibromyalgia N Kidney Disease N Heart Problems N Kidney or Bladder Problems N Thyroid Problems N GI Problems N Eating Disorder N Anemia N Art (IVF or FET) N Psychiatric Illness N Ovarian Cancer N Diabetes N Pulmonary (TB, Asthma) N Hepatitis/Liver Disease N No Past Medical History N Eczema N Urinary Tract Infection N Abuse/Domestic Violence N Asthma N Trauma/Violence N Depression/ depression N Heart Disease N Pre-Eclampsia N Hypertension Y Osteoporosis N Thrombophilias N Gynecological History Statement/Question Response Abnormal Pap N Date of Last Mammogram On BCP's at Conception? N N STIs/STDs N HPV Vaccine N Colposcopy Current Control Method Menopause Age at First Child 34 If Post Menopausal, Age at Menopause 54 Date of Last Colonoscopy Sexually Active? Y Date of DEXA bone scan Date of Last Pap Smear Sexual Problems? N N Obstetrics History GPAL:G 0 P 0 0 0 0 Past Encounters Encounter ID Performer Location Encounter Start Date Encounter Closed Date Diagnosis/Indication Diagnosis SNOMED-CT Code Diagnosis ICD10 Code Diagnosis Note [id number] JONAH Joseph Brady [address] [address] 05/15/2023 10:07:11 05/15/2023 11:04:17 Gynecologic examination 44572958 Z01.419 Take Calcium with Vitamin D 12-1500mg daily. Do monthly self breast exams. It is advised to get annual flu shot in the fall and she could obtain at [facility] or [facility] care clinic. If you haven't received the Tdap vaccine in the last 10 years you should obtain one as well. Have mammogram yearly, bone density every 2-3 years and colonoscop y every 5-10 years depending on findings and history. Engage in daily exercise of low impact aerobic exercise 45-60 minutes 4-5 times weekly. Avoid tobacco and illicit drugs as well as using moderation with alcohol intake less than 1-2 8 oz beverages daily. This lifestyle behavior pattern will lead to less health conditions and longer life span. If BMI greater than 25 weight watchers or dietary consult advised. Questions have been answered. Patient appears to understand instructio ns, but if you have any further questions call or respond to this email WWEpostmen opausalhx of abnormal paps in the pastlast pap 05/2019 - ascus, HPV (-)pap updated todaySTI testing declinedma mmogram order givenUTD with cologuard - next due 2025dexa due age 63UTD with PCP for routine labsRTC in 1 year or sooner if needed Screening for malignant neoplasm of breast 149946928 Z12.39 [id number] JONAH Joseph Brady [address] [address] 05/17/2024 09:37:35 05/17/2024 10:55:54 Gynecologic examination 61134501 Z01.419 WWEpostmen opausalpap updateddec lined STI screenmamm ogram order givencolog uard UTD Do monthly self breast exams.It is advised to get annual flu shot in the fall and she could obtain at local pharmacy. If you haven't received the Tdap vaccine in the last 10 years you should obtain one as well.Have mammogram yearly and stay up to date on colon cancer screening. Engage in regular exercise. Avoid tobacco and illicit drugs. This lifestyle behavior pattern will lead to less health conditions and longer life span. If BMI greater than 25 dietary consult advised.Qu estions have been answered. Screening for malignant neoplasm of breast 771450635 Z12.39 Health Concerns Section Related Observation LastModified by Organization Detai ls LastModified Time None Recorded Concern Status LastModified by Organization Details LastModified Time None Recorded Advance Directives Directive None Recorded Payers Encounter Date Sequence Insurance Name Policy Number Policy Emmanuel Covered Member ID Emmanuel Member ID Guarantor Name 05/15/2023 1 [employer] [id number] Brian Frederick [id number] Gladys Frederick 05/17/2024 1 [employer] [id number] Brian Frederick [id number] Gladys Frederick Notes Date Note Type Note Provider Name and Address Organization Details Recorded Time 3 text/html 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 Post-MenopausalReported bypatient.Menopausal Symptoms:no menopausal symptoms; normal vaginal lubrication Vaginal Bleeding:history of menopause having occurred; no history of post menopausal bleeding Urinary Symptoms:no hematuria; no incontinence; no nocturia; no urinary frequency Vulva:no genital lesion; no vulvar atrophy Vagina:normal vaginal discharge; no vaginal atrophy Breast:no breast lump; no nipple discharge; no breast pain Sexual Complaints:no sexual complaints Psychological Symptoms:no depression; no anxiety Preventive Measures:encourage regular mammograms starting age 40; encourage self breast examination; encourage regular exercise; encourage no tobacco use; mammogram performed within the past year; needs to schedule mammogram JONAH Joseph [address], [place], [address], [facility] 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 Post-MenopausalReported bypatient.Menopausal Symptoms:no menopausal symptoms; normal vaginal lubrication Vaginal Bleeding:history of menopause having occurred; no history of post menopausal bleeding Urinary Symptoms:no hematuria; no incontinence; no nocturia; no urinary frequency Vulva:no genital lesion; no vulvar atrophy Vagina:normal vaginal discharge; no vaginal atrophy Breast:no breast lump; no nipple discharge; no breast pain Sexual Complaints:no sexual complaints Psychological Symptoms:no depression; no anxiety Preventive Measures:encourage regular mammograms starting age 40; encourage self breast examination; encourage regular exercise; encourage no tobacco useNotes:59yo WWEpostmenopausallast pap 05/2023 : normalh/o abnormal papsmammogram last 3cologuard UTD JONAH Joseph [address], [place], [address], [facility] 05/17/2024 10:38:33 OBGyn Episode No OBEpisode recorded.
--- OUTSIDE RECORDS SUMMARY | 2025-01-17 10:26 | XMS_ITS | Encounter Summary ---
Author Organization [facility] Address 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 Gender Identity Not on file Sexual Orientation Not on file documented as of this encounter Plan of Treatment Not on file documented as of this encounter Procedures Procedure Name Priority Date/Time Associated Diagnosis Comments XR WRIST 3+ VW LEFT Routine 05/17/2008 1 :07 PM CDT documented in this encounter Results * XR WRIST 3+ VW LEFT (05/17/2008 1:07 PM CDT) Anatomical Region Laterality Modality Wrist / Hand Other 05/17/2008 1:07 PM CDT Narrative 06/01/2008 2:23 PM CDT [facility] [address], [place] [address] Admit Date: 05/17/2008 ASHLEE FREDERICK Sex: F Admit Prov: JANES PARISH Date: 1965 Primary Care Prov: CMRN: [id number] [facility]: [id number] IMAGING SERVICES Ordering Prov: JANES PARISH Accession Number: [id number] Interpretation This procedure was performed at the request of the orthopedic physician. Please see the orthopedic physician s report for details, which can be found in the patient s medical record. Dictated by: RADIOLOGY, DEPARTMENT O Electronically signed by: RADIOLOGY, DEPARTMENT 06/01/2008 14:21 Transcribed: 06/01/2008 14:14 AMK Procedure Note Provider, Historical - 06/01/2008 [facility] [address], [place] [address] Admit Date: 05/17/2008 ASHLEE FREDERICK Sex: F Admit Prov: JANES PARISH Date: 1965 Primary Care Prov: CMRN: [id number] Room: [facility] SSN: [id number] IMAGING SERVICES Ordering Prov: JANES PARISH Interpretation This procedure was performed at the request of the orthopedicphysician. Please see the orthopedic physician s report for details, which canbe found in the patient s medical record. Dictated by: RADIOLOGY, DEPARTMENT O Electronically signed by: RADIOLOGY, DEPARTMENT 06/01/2008 14:21 Transcribed: 06/01/2008 14:14 AMK Janes Parish DO DIAGNOSTIC IMAGING ORDERABLES Final Result documented in this encounter Visit Diagnoses Not on filedocumented in this encounter
--- OUTSIDE RECORDS SUMMARY | 2025-01-17 10:26 | XMS_ITS | Encounter Summary ---
Author Organization [facility] [place] Address 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
--- OUTSIDE RECORDS SUMMARY | 2025-01-17 10:26 | XMS_ITS | Encounter Summary ---
Author Organization [facility] Address 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 [address], [place] [address] Admit Date: 03/15/2008 ASHLEE FREDERICK Sex: F Admit Prov: JANES PARISH Date: 1965 Primary Care Prov: PCP, UNKNOWN CMRN: [id number] [facility] [id number] [facility] Ordering Prov: JANES PARISH Accession Number: [id number] Interpretation This procedure was performed at the request of the orthopedic physician. Please see the orthopedic physician s report for details, which can be found in the patient s medical record. Dictated by: RADIOLOGY, DEPARTMENT O Electronically signed by: RADIOLOGY, DEPARTMENT 03/20/2008 12:47 Transcribed: 03/20/2008 11:44 AMK Procedure Note Provider, Historical - 03/20/2008 [place] [address] Admit Date: 03/15/2008 ASHLEE FREDERICK Sex: F Admit Prov: JANES PARISH Date: 1965 Primary Care Prov: PCP, UNKNOWN CMRN: [id number] [facility] [id number] [facility] Ordering Prov: JANES PARISH Interpretation This procedure was performed at the request of the orthopedicphysician. Please see the orthopedic physician s report for details, which canbe found in the patient s medical record. Dictated by: RADIOLOGY, DEPARTMENT O Electronically signed by: RADIOLOGY, DEPARTMENT 03/20/2008 12:47 Transcribed: 03/20/2008 11:44 AMK Janes Parish DO DIAGNOSTIC IMAGING ORDERABLES Final Result * XR WRIST 3+ VW LEFT (03/15/2008 1:42 PM CDT) Anatomical Region Laterality Modality Wrist / Hand Other 03/15/2008 1:42 PM CDT Narrative 03/20/2008 12:47 PM CDT [address] [address] Admit Date: 03/15/2008 ASHLEE FREDERICK Sex: F Admit Prov: JANES PARISH Date: 1965 Primary Care Prov: PCP, UNKNOWN CMRN: [id number] [facility] [id number] IM[facility] Ordering Prov: JANES PARISH Accession Number: [id number] Interpretation This procedure was performed at the request of the orthopedic physician. Please see the orthopedic physician s report for details, which can be found in the patient s medical record. Dictated by: RADIOLOGY, DEPARTMENT O Electronically signed by: RADIOLOGY, DEPARTMENT 03/20/2008 12:47 Transcribed: 03/20/2008 11:44 AMK Procedure Note Provider, Historical - 03/20/2008 [facility] [address] [place], [place] [address] Admit Date: 03/15/2008 ASHLEE FREDERICK Sex: F Admit Prov: JANES PARISH Date: 1965 Primary Care Prov: PCP, UNKNOWN CMRN: [id number] [facility] [id number] IM[facility]ING SERVICES Ordering Prov: JANES PARISH Interpretation This procedure was performed at the request of the orthopedicphysician. Please see the orthopedic physician s report for details, which canbe found in the patient s medical record. Dictated by: RADIOLOGY, DEPARTMENT O Electronically signed by: RADIOLOGY, DEPARTMENT 03/20/2008 12:47 Transcribed: 03/20/2008 11:44 AMK us Janes Parish DO DIAGNOSTIC IMAGING ORDERABLES Final Result documented in this encounter Visit Diagnoses Not on filedocumented in this encounter
--- OUTSIDE RECORDS SUMMARY | 2025-01-17 10:26 | XMS_ITS | Encounter Summary ---
Author Organization [email or web address] Address 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 Gender Identity Not on file Sexual Orientation Not on file documented as of this encounter Plan of Treatment Not on file documented as of this encounter Procedures Procedure Name Priority Date/Time Associated Diagnosis Comments XR WRIST 3+ VW LEFT Routine 08/23/2008 1 0:37 AM INVESTMENT BROKER documented in this encounter Results * XR WRIST 3+ VW LEFT (08/23/2008 10:37 AM INVESTMENT BROKER) Anatomical Region Laterality Modality Wrist / Hand Other 08/23/2008 10:3 7 AM INVESTMENT BROKER Narrative 08/25/2008 11:48 PM INVESTMENT BROKER [facility] [address], [place] [address] Admit Date: 08/23/2008 ASHLEE FREDERICK Sex: F Admit Prov: JANES PARISH Date: 1965 Primary Care Prov: CMRN: [id number] [facility]: [id number] IMAGING SERVICES Ordering Prov: JANES PARISH Accession Number: [id number] Interpretation This procedure was performed at the request of the orthopedic physician. Please see the orthopedic physician s report for details, which can be found in the patient s medical record. Dictated by: RADIOLOGY, DEPARTMENT O Electronically signed by: RADIOLOGY, DEPARTMENT 08/25/2008 23:48 Transcribed: 08/25/2008 23:41 AMK Procedure Note Radiology, Radiologist - 08/25/2008 [facility] [address], [place] [address] Admit Date: 08/23/2008 ASHLEE FREDERICK Sex: F Admit Prov: JANES PARISH Date: 1965 Primary Care Prov: CMRN: [id number] [facility] SSN: [id number] IMAGING SERVICES Ordering Prov: JANES PARISH Interpretation This procedure was performed at the request of the orthopedicphysician. Please see the orthopedic physician s report for details, which canbe found in the patient s medical record. Dictated by: RADIOLOGY, DEPARTMENT O Electronically signed by: RADIOLOGY, DEPARTMENT 08/25/2008 23:48 Transcribed: 08/25/2008 23:41 AMK Janes Parish DO DIAGNOSTIC IMAGING ORDERABLES Final Result documented in this encounter Visit Diagnoses Diagnosis Other orthopedic aftercare(V54.89) Other orthopedic aftercare documented in this encounter
--- OUTSIDE RECORDS SUMMARY | 2025-01-17 10:26 | XMS_ITS | Encounter Summary ---
Author Organization [facility] Address 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 Gender Identity Not on file Sexual Orientation Not on file documented as of this encounter Plan of Treatment Not on file documented as of this encounter Procedures Procedure Name Priority Date/Time Associated Diagnosis Comments XR WRIST 3+ VW LEFT Routine 10/20/2008 1 0:27 AM GAMING DEPARTMENT HEAD documented in this encounter Results * XR WRIST 3+ VW LEFT (10/20/2008 10:27 AM GAMING DEPARTMENT HEAD) Anatomical Region Laterality Modality Wrist / Hand Other 10/20/2008 10:2 7 AM GAMING DEPARTMENT HEAD Narrative 10/23/2008 9:42 PM GAMING DEPARTMENT HEAD [facility] [address] [place], [place] [address] Admit Date: 10/20/2008 ASHLEE FREDERICK Sex: F Admit Prov: JANES PARISH Date: 1965 Primary Care Prov: CMRN: [id number] Room: [facility] SSN: [id number] IMAGING SERVICES Ordering Prov: JANES PARISH Accession Number: [id number] Interpretation This procedure was performed at the request of the orthopedic physician. Please see the orthopedic physician s report for details, which can be found in the patient s medical record. Dictated by: RADIOLOGY, DEPARTMENT O Electronically signed by: RADIOLOGY, DEPARTMENT 10/23/2008 21:41 Transcribed: 10/22/2008 21:04 AMK Procedure Note Radiology, Radiologist - 10/23/2008 [facility] [address], [place] [address] Admit Date: 10/20/2008 ASHLEE FREDERICK Sex: F Admit Prov: JANES PARISH Date: 1965 Primary Care Prov: CMRN: [id number] Room: [facility] SSN: [id number] IMAGING SERVICES Ordering Prov: JANES PARISH Interpretation This procedure was performed at the request of the orthopedicphysician. Please see the orthopedic physician s report for details, which canbe found in the patient s medical record. Dictated by: RADIOLOGY, DEPARTMENT O Electronically signed by: RADIOLOGY, DEPARTMENT 10/23/2008 21:41 Transcribed: 10/22/2008 21:04 AMK us Janes Parish DO DIAGNOSTIC IMAGING ORDERABLES Final Result documented in this encounter Visit Diagnoses Not on filedocumented in this encounter
--- OUTSIDE RECORDS SUMMARY | 2025-01-17 10:26 | XMS_ITS | Encounter Summary ---
Author Organization [facility] Address [address] [place] [address] Care Team Providers Care Mathematical Physicist Name Role Phone Unavailable Primary Care Provider Unavailabl e Encounter Details Date Type Department Care Team (Latest Contact Info) Description 04/01/2008 Outpatient Historical HIS 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 Gender Identity Not on file Sexual Orientation Not on file documented as of this encounter Plan of Treatment Not on file documented as of this encounter Procedures Procedure Name Priority Date/Time Associated Diagnosis Comments XR FINGER THUMB RIGHT Routine 04/01/2008 10:28 AM CDT documented in this encounter Results * XR FINGER THUMB RIGHT (04/01/2008 10:28 AM CDT) Anatomical Region Laterality Modality Wrist / Hand Other 04/01/2008 10:2 8 AM CDT Narrative 04/01/2008 2:[address] [address] Admit Date: 04/01/2008 ASHLEE FREDERICK Sex: F Admit Prov: CLIFFORD ALVES Date: 1965 Primary Care Prov: CMRN: [id number] Room: [facility]: [id number] IMAGING SERVICES Ordering Prov: N/A Accession Number: [id number] Interpretation RIGHT FIFTH FINGER, 04/01/2008. History: Followup fracture. A PA view of the right hand was obtained. Two coned-down views of the fifth finger were obtained. Comparison is made with 03/04/2008. Again seen are 2 pins through the fifth finger including the metacarpal head. Fractured fractures involving the proximal middle and distal phalanges is again noted. There is some evidence of interval healing. The alignment is near anatomic. An old fracture involving the distal phalanx of the thumb is again noted. The previously seen pins have been removed. Distal tuft fractures of the second, third and fourth fingers are suspected but not well profiled on this exam. IMPRESSION: Stable alignment of 5th finger. . Report revised on 04/01/2008 2:47:31 PM by MARY JO OLIVEIRA Dictated by: MARY JO OILVEIRA 04/01/2008 12:44 Electronically signed by: MARY JO OLIVEIRA 04/01/2008 14:47 Transcribed: 04/01/2008 13:20 Procedure Note Mary Jo Oliveira - 04/01/2008 [facility] [address] [place], [place] [address] Admit Date: 04/01/2008 ASHLEE FREDERICK Sex: F Admit Prov: CLIFFORD ALVES Beata Date: 1965 Primary Care Prov: CMRN: [id number] Room: [facility]: [id number] IMAGING SERVICES Ordering Prov: N/A Interpretation RIGHT FIFTH FINGER, 04/01/2008. History: Followup fracture. A PA view of the right hand was obtained. Two coned-down views of thefifth finger were obtained. Comparison is made with 03/04/2008. Again seen are 2 pins through the fifth finger including themetacarpal head. Fractured fractures involving the proximal middle and distal phalanges is again noted. There is some evidence of interval healing.The alignment is near anatomic. An old fracture involving the distalphalanx of the thumb is again noted. The previously seen pins have beenremoved. Distal tuft fractures of the second, third and fourth fingers aresuspected but not well profiled on this exam. IMPRESSION: Stable alignment of 5th finger. . Report revised on 04/01/2008 2:47:31 PM by MARY JO OLIVEIRA Dictated by: MARY JO OLIVEIRA 04/01/2008 12:44 Electronically signed by: MARY JO OLIVEIRA 04/01/2008 14:47 Transcribed: 04/01/2008 13:20 us Clifford Alves MD DIAGNOSTIC IMAGING ORDERABLES Edited documented in this encounter Visit Diagnoses Diagnosis Injury, other and unspecified, finger documented in this encounter
--- OUTSIDE RECORDS SUMMARY | 2025-01-17 10:27 | XMS_ITS | Encounter Summary ---
Author Organization [facility] Address [address] [place] [address] Care Team Providers Care Assistant Customer Service Manager Name Role Phone Unavailable Primary Care Provider Unavailabl e Encounter Details Date Type Department Care Team (Latest Contact Info) Description 08/26/2008 Outpatient Historical [facility] Janes Parish, DO [address] [facility] [address] [place] [address] Encounter for Removal of Internal Fixation Device Social History Tobacco Use Types Packs/Day Years Used Date Smoking Tobacco: Never Assessed Comments Unknown Sex and Gender Information Value Date Recorded Sex Assigned at Not on file 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 Sex Female 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 Gender Identity Not on file Sexual Orientation Not on file documented as of this encounter Plan of Treatment Not on file documented as of this encounter Procedures Procedure Name Priority Date/Time Associated Diagnosis Comments XR FLUORO LESS THAN 1 HOUR Routine 09/07/2008 11:59 AM SPORT INTERNSHIP HEMOGLOBIN AND HEMATOCRIT Stat 09/07/2008 10:50 AM SPORT INTERNSHIP POC , URINE Routine 09/07/2008 10:50 AM SPORT INTERNSHIP documented in this encounter Results * XR FLUORO < 1 HOUR (09/07/2008 11:59 AM SPORT INTERNSHIP) Anatomical Region Laterality Modality Other 09/07/2008 11:5 9 AM SPORT INTERNSHIP Narrative 09/11/2008 3:32 PM SPORT INTERNSHIP [place] [address] [place], [place] [address] Admit Date: 09/07/2008 ASHLEE FREDERICK Sex: F Admit Prov: JANES PARISH Date: 1965 Primary Care Prov: CMRN: [id number] Room: [facility]-A N: [id number] IMAGING SERVICES Ordering Prov: JANES PARISH Accession Number: [id number] Interpretation Fluoroscopic guidance was used by the surgeon to assist with performance of this intra-operative procedure. Please refer to surgeon s operative report for specific details. Dictated by: RADIOLOGY, DEPARTMENT O Electronically signed by: RADIOLOGY, DEPARTMENT 09/11/2008 15:31 Transcribed: 09/11/2008 15:17 AMK Procedure Note Radiology, Radiologist - 09/11/[address] [address] Admit Date: 09/07/2008 EVGENYASHLEE CARVAJAL Sex: F Admit Prov: JANES PARISH Date: 1965 Primary Care Prov: CMRN: [id number] Room: [facility] SSN: [id number] IMAGING SERVICES Ordering Prov: JANES PARISH Interpretation Fluoroscopic guidance was used by the surgeon to assist withperformance of this intra-operative procedure. Please refer to surgeon s operativereport for specific details. Dictated by: RADIOLOGY, DEPARTMENT O Electronically signed by: RADIOLOGY, DEPARTMENT 09/11/2008 15:31 Transcribed: 09/11/2008 15:17 AMK us Janes Parish DO DIAGNOSTIC IMAGING ORDERABLES Final Result * POC , URINE (09/07/2008 10:50 AM SPORT INTERNSHIP) , URINE POC Negative Negative [facility] Urine specimen (specimen) 09/07/2008 10:50 AM SPORT INTERNSHIP 09/07/2008 10:50 AM SPORT INTERNSHIP us Janes Parish DO POINT OF CARE TESTING Final R esult INTERFACE SYSTEM Refer to clinic/hospital department [facility] CLIA# [id number] [address] [place] [address] * HEMOGLOBIN AND HEMATOCRIT (09/07/2008 10:50 AM SPORT INTERNSHIP) HEMATOCRIT 42.5 35.5 - 44.0 % [facility] HEMOGLOBIN 14.4 11.8 - 14.8 g/dL [facility] Blood specimen (specimen) 09/07/2008 10:50 AM SPORT INTERNSHIP 09/07/2008 11:02 AM SPORT INTERNSHIP Narrative INTERFACE SYSTEM - 09/07/2008 11:09 AM SPORT INTERNSHIP rm 15 Janes Parish DO HEMATOLOGY ORDERABLES Final R esult INTERFACE SYSTEM Refer to clinic/hospital department [facility] CLIA# [id number] [address] [place] [address] documented in this encounter Visit Diagnoses Diagnosis Encounter for removal of internal fixation device documented in this encounter
--- OUTSIDE RECORDS SUMMARY | 2025-01-17 10:27 | XMS_ITS | Encounter Summary ---
Author Organization [facility] Address 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 Gender Identity Not on file Sexual Orientation Not on file documented as of this encounter Plan of Treatment Not on file documented as of this encounter Procedures Procedure Name Priority Date/Time Associated Diagnosis Comments XR WRIST 3+ VW LEFT Routine 09/13/2008 1 :33 PM ASSISTANT PROFESSOR [employer]IN[employer] documented in this encounter Results * XR WRIST 3+ VW LEFT (09/13/2008 1:33 PM ASSISTANT PROFESSOR [employer]IN[employer]) Anatomical Region Laterality Modality Wrist / Hand Other 09/13/2008 1:33 PM ASSISTANT PROFESSOR [employer]IN[employer] Narrative 09/15/2008 10:46 AM ASSISTANT PROFESSOR OF [employer]INAL JUSTICE [facility] [place] [address], [place] [address] Admit Date: 09/13/2008 ASHLEE FERDERICK Sex: F Admit Prov: JANES PARISH Date: 1965 Primary Care Prov: CMRN: [id number] Room: [facility] SSN: [id number] IMAGING SERVICES Ordering Prov: JANES PARISH Accession Number: [id number] Interpretation This procedure was performed at the request of the orthopedic physician. Please see the orthopedic physician s report for details, which can be found in the patient s medical record. Dictated by: RADIOLOGY, DEPARTMENT O Electronically signed by: RADIOLOGY, DEPARTMENT 09/15/2008 10:43 Transcribed: 09/15/2008 10:31 AMK Procedure Note Radiology, Radiologist - 09/15/2008 [facility] [place] [address], [place] [address] Admit Date: 09/13/2008 ASHLEE FREDERICK Sex: F Admit Prov: JANES PARISH Date: 1965 Primary Care Prov: CMRN: [id number] [facility] [id number] IM[facility]ING [facility] Ordering Prov: JANES PARISH Interpretation This procedure was performed at the request of the orthopedicphysician. Please see the orthopedic physician s report for details, which canbe found in the patient s medical record. Dictated by: RADIOLOGY, DEPARTMENT O Electronically signed by: RADIOLOGY, DEPARTMENT 09/15/2008 10:43 Transcribed: 09/15/2008 10:31 AMK us Janes Parish DO DIAGNOSTIC IMAGING ORDERABLES Final Result documented in this encounter Visit Diagnoses Not on filedocumented in this encounter
--- OUTSIDE RECORDS SUMMARY | 2025-01-17 10:27 | XMS_ITS | Clinical Summary ---
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 Active IBUPROFEN PO Take by mouth. Active hydrOXYzine HCl (ATARAX) 25 mg Oral Tab Take 1 Tab by mouth 3 times daily as needed for Itching. 100 Tab 0 05/03/2009 Active Active Problems Problem Noted Date Diagnosed Date Other closed fractures of distal end of radius ( alone) 02/03/2008 Overview (12/19/2008): L open dist rad fx, s/p ORIF Closed fracture of metatarsal bone(s) 02/03/2008 Overview (12/19/2008): L 5th MT fx. 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 Gender Identity Not on file Sexual Orientation Not on file Last Filed Vital Signs Vital Sign Reading Time Taken Comments Blood Pressure 152/96 12/20/2008 10:55 AM CDT Pulse - - Temperature 36.7 C (98 F) 12/20/2008 10:55 AM CDT Respiratory Rate - - Oxygen Saturation - - Inhaled Oxygen Concentration - - Weight 106.6 kg (235 lb) 12/20/2008 10:55 AM CDT Height 170.2 cm (5' 7 ) 12/20/2008 10:55 AM CDT Body Mass Index 36.81 12/20/2008 10:55 AM CDT Plan of Treatment Health Maintenance Due Date Last Done Comments DTAP/TDAP/TD VACCINES (1 - Tdap) 1982 HPV/Cotest (21-29) 02/29/1984 CERVICAL CANCER SCREENING 1993 HPV/Cotest (30-65) 1993 PAP SMEAR 1993 BREAST CANCER SCREENING 2003 COLORECTAL SCREENING 02/29/2008 Colorectal Cancer Screening 02/29/2008 FIT-DNA Q 3 years 02/29/2008 FIT/FOBT Q 1 year 02/29/2008 Flex Sig/CT Colonography Q 5 years 02/29/2008 ZOSTER VACCINE (1 of 2) 2013 INFLUENZA VACCINE (#1) 2024 RSV VACCINE (60+ or ) (1 - 1-dose 75+ series) [address] [place] [address] BLUE ACCESS CHOICE
--- OUTSIDE RECORDS SUMMARY | 2025-01-17 10:27 | XMS_ITS | Encounter Summary ---
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 REVIEWED ON SMEAR Plt OK by Smear Rev. [facility] Blood specimen (specimen) 02/13/2008 4:00 AM CDT 02/13/2008 4:55 AM CDT Nayeli Alves MD HEMATOLOGY ORDERABLES Edited Performing Organization Address City/[facility]/ZIP Co de Phone Number [facility] CLIA# [id number] [address], [place] [address] * PHOSPHORUS (02/12/2008 4:00 AM CDT) PHOSPHORUS 3.4 2.5 - 4.5 mg/dL [facility] Blood specimen (specimen) 02/12/2008 4:00 AM CDT 02/12/2008 6:17 AM CDT Nolberto Stovall MD CHEMISTRY ORDERABLES Final R esult Performing Organization Address City/[facility] Co de Phone Number [facility] CLIA# [id number] [address] [place] [address] * MAGNESIUM LEVEL (02/12/2008 4:00 AM CDT) MAGNESIUM 2.1 1.5 - 2.5 mg/dL [facility] Blood specimen (specimen) 02/12/2008 4:00 AM CDT 02/12/2008 6:17 AM CDT Nolberto Stovall MD CHEMISTRY ORDERABLES Final R esult Performing Organization Address City/[facility]/ZIP Co de Phone Number [facility] CLIA# [id number] [address] [place] [address] * (ABNORMAL) BASIC METABOLIC PANEL (02/12/2008 4:00 AM CDT) CALCIUM 7.0(L) 8.4 - 10.2 mg/dL [facility] CO2 27 22 - 30 mmol/L [facility] CREATININE 0.66 0.51 - 0.95 mg/dL [facility] POTASSIUM 4.1 3.5 - 4.9 mmol/L [facility] BUN 10 6 - 20 mg/dL [facility] CHLORIDE 102 96 - 108 mmol/L [facility] GLUCOSE 116(H) 65 - 99 mg/dL [facility] SODIUM 134(L) 135 - 145 mmol/L [facility] GFR, >60 >=60 mL/min/1. 7 sq meter [facility] GFR >60 >=60 mL/min/1. 7 sq meter [facility] Comment: Estimated GFR rate interpretative information for both Americans and non- Americans is available on the [facility] Intranet at: [email or web address] Select: Lab Policies and Procedures Select: Reference Ranges - GFR Blood specimen (specimen) 02/12/2008 4:00 AM CDT 02/12/2008 6:17 AM CDT us Nolberto Stovall MD CHEMISTRY ORDERABLES Edited [facility] CLIA# [id number] [address] [place] [address] * (ABNORMAL) CBC WITH DIFFERENTIAL (02/12/2008 4:00 AM CDT) RBC 2.95(L) 3.90 - 4.90 M/uL [facility] MCHC 32.4 31.5 - 35.5 % [facility] MCV 85.8 82.0 - 99.0 fL [facility] PLATELETS 226 140 - 350 K/uL [facility] HEMOGLOBIN 8.2(L) 11.8 - 14.8 g/dL [facility] RDW 14.0 11.5 - 14.5 % [facility] WBC 8.0 4.0 - 9.8 K/uL [facility] MCH 27.8 27.2 - 32.6 pg [facility] MPV 8.9(L) 9.3 - 12.4 fL [facility] HEMATOCRIT 25.3(L) 35.5 - 44.0 % [facility] RDW-STDEV 43.1 37.1 - 48.7 fL [facility] BASOPHILS 0 0 - 2 % [facility] EOSINOPHIL ABSOLUTE 0.08 0.00 - 0.70 K/uL [facility] POLYCHROMASIA Slight [facility] MONOCYTES 4 3 - 13 % [facility] LYMPHOCYTE ABSOLUTE 1.44 0.70 - 4.50 K/uL [facility] PLATELET EST. Consistent w/ count Normal [facility] BANDS 19(H) 0 - 5 % [facility] BASOPHILS ABSOLUTE 0.00 0.00 - 0.20 K/uL [facility] EOSINOPHILS 1 0 - 7 % [facility] [place] [facility] MONOCYTE ABSOLUTE 0.32 0.10 - 1.30 K/uL [facility] LYMPHOCYTES 18 16 - 45 % [facility] [place] [facility] ANISOCYTOSIS Slight [facility] NEUTROPHIL ABSOLUTE 6.16 1.90 - 7.00 K/uL [facility] NEUTROPHILS, SEG 58 45 - 70 % [facility] Blood specimen (specimen) 02/12/2008 4:00 AM CDT 02/12/2008 6:17 AM CDT Nolberto Stovall MD HEMATOLOGY ORDERABLES Edited Performing Organization Address [facility] de Phone Number [facility] CLIA# [id number] [address] [place] [address] * (ABNORMAL) CALCIUM IONIZED (02/12/2008 4:00 AM CDT) CALCIUM IONIZED 4.32(L) 4.76 - 5.16 mg/dL [facility] Blood specimen (specimen) 02/12/2008 4:00 AM CDT 02/12/2008 6:17 AM CDT Nolberto Stovall MD CHEMISTRY ORDERABLES Final R esult Performing Organization Address [facility] de Phone Number [facility] CLIA# [id number] [address] [place] [address] * URINE CULTURE (02/11/2008 9:40 AM CDT) PRELIMINARY REPORT Pending [facility] FINAL REPORT >100,000 colonies/mL presumptive Jahaira albicans [facility] URINARY BLADDER STRUCTURE / Unknown 02/11/2008 9:40 AM CDT 02/11/2008 11:58 AM CDT Nolberto Stovall MD MICROBIOLOGY - GENERAL ORDER ZAINAB Final Result Performing Organization Address [facility] de Phone Number [facility] [address] [place] [place] [address] * HCG QUALITATIVE, URINE (02/11/2008 5:57 AM CDT) SPECIFIC GRAVITY UA 1.020 1.001 - 1.035 [facility] HCG QUAL URINE Negative Negative [facility] Urine specimen (specimen) 02/11/2008 5:57 AM CDT 02/11/2008 6:01 AM CDT Nayeli Alves MD URINE ORDERABLES Final Result [facility] [address] [place] [address] * (ABNORMAL) CBC WITH DIFFERENTIAL (02/11/2008 3:20 AM CDT) WBC 6.1 4.0 - 9.8 K/uL [facility] MCH 28.4 27.2 - 32.6 pg [facility] MPV 9.0(L) 9.3 - 12.4 fL [facility] HEMATOCRIT 30.2(L) 35.5 - 44.0 % [facility] RDW-STDEV 43.1 37.1 - 48.7 fL [facility] RBC 3.56(L) 3.90 - 4.90 M/uL [facility] MCHC 33.4 31.5 - 35.5 % [facility] MCV 84.8 82.0 - 99.0 fL [facility] PLATELETS 242 140 - 350 K/uL [facility] HEMOGLOBIN 10.1(L) 11.8 - 14.8 g/dL [facility] RDW 14.1 11.5 - 14.5 % [facility] NEUTROPHILS, SEG 54 45 - 70 % [facility] BASOPHILS 0 0 - 2 % [facility] POIKILOCYTES Slight [facility] EOSINOPHIL ABSOLUTE 0.18 0.00 - 0.70 K/uL [facility] MONOCYTES 2(L) 3 - 13 % [facility] PLATELET EST. Consistent w/ count Normal [facility] LYMPHOCYTE ABSOLUTE 1.83 0.70 - 4.50 K/uL [facility] BANDS 10(H) 0 - 5 % [facility] POLYCHROMASIA Slight [facility] METAMYELOCYTE 1(H) <=0 % [facility] BASOPHILS ABSOLUTE 0.00 0.00 - 0.20 K/uL [facility] ANISOCYTOSIS Slight [facility] EOSINOPHILS 3 0 - 7 % [facility] [place] [place] [facility] MONOCYTE ABSOLUTE 0.12 0.10 - 1.30 K/uL [facility] ATYPICAL LYMPHOCYTE 1 0 - 5 % [facility] LYMPHOCYTES 29 16 - 45 % [facility] [place] [place] [facility] OVALOCYTES Slight [facility] NEUTROPHIL ABSOLUTE 3.90 1.90 - 7.00 K/uL [facility] Blood specimen (specimen) 02/11/2008 3:20 AM CDT 02/11/2008 3:28 AM CDT Nolberto Stovall MD HEMATOLOGY ORDERABLES Edited Performing Organization Address City/[facility]/ZIP Co de Phone Number [facility] [address] [place] [address] * PHOSPHORUS (02/11/2008 3:20 AM CDT) PHOSPHORUS 3.8 2.5 - 4.5 mg/dL [facility] Blood specimen (specimen) 02/11/2008 3:20 AM CDT 02/11/2008 3:28 AM CDT Nolberto Stovall MD CHEMISTRY ORDERABLES Final R esult [facility] [address] [place] [address] * MAGNESIUM LEVEL (02/11/2008 3:20 AM CDT) MAGNESIUM 2.2 1.5 - 2.5 mg/dL [facility] Blood specimen (specimen) 02/11/2008 3:20 AM CDT 02/11/2008 3:28 AM CDT Nolberto Stovall MD CHEMISTRY ORDERABLES Final R esult Performing Organization Address City/[facility]/ZIP Co de Phone Number [facility] [address] [place] [address] * (ABNORMAL) CALCIUM IONIZED (02/11/2008 3:20 AM CDT) Pathologist [facility] [place] CALCIUM IONIZED 4.36(L) 4.76 - 5.16 mg/dL [facility] Blood specimen (specimen) 02/11/2008 3:20 AM CDT 02/11/2008 3:28 AM CDT Nolberto Stovall MD CHEMISTRY ORDERABLES Final R esult [facility] [address] [place] [address] * (ABNORMAL) BASIC METABOLIC PANEL (02/11/2008 3:20 AM CDT) BUN 10 6 - 20 mg/dL [facility] CHLORIDE 103 96 - 108 mmol/L [facility] GLUCOSE 115(H) 65 - 99 mg/dL [facility] SODIUM 138 135 - 145 mmol/L [facility] CALCIUM 7.4(L) 8.4 - 10.2 mg/dL [facility] CO2 27 22 - 30 mmol/L [facility] CREATININE 0.65 0.51 - 0.95 mg/dL [facility] POTASSIUM 3.9 3.5 - 4.9 mmol/L [facility] GFR, >60 >=60 mL/min/1. 7 sq meter [facility] GFR >60 >=60 mL/min/1. 7 sq meter [facility] Comment: Estimated GFR rate interpretative information for both Americans and non- Americans is available on the [facility] Intranet at: [email or web address] Select: Lab Policies and Procedures Select: Reference Ranges - GFR Blood specimen (specimen) 02/11/2008 3:20 AM CDT 02/11/2008 3:28 AM CDT Nolberto Stovall MD CHEMISTRY ORDERABLES Edited [facility] [address] [place] [address] * XR CHEST PA OR AP (02/10/2008 9:20 AM CDT) Anatomical Region Laterality Modality Chest Other 02/10/2008 9:20 AM CDT Narrative 02/10/2008 10:01 AM CDT [place] [id number] [place], [place] [address] Admit Date: 02/08/2008 GLADYS FREDERICK Sex: F Admit Prov: NAYELI ALVES Date: 1965 Primary Care Prov: PCP, UNKNOWN CMRN: [id number] Room: [place] [address] SSN: [id number] IMAGING SERVICES Ordering Prov: N/A Accession Number: [id number] Interpretation PORTABLE CHEST, 02/10/2008 AT 9:20 A.M. Clinical History: Ellis, central venous catheter removal, preop. Comparison is made with previous day's portable chest of 02/09/08. There has been interval removal of the right jugular central venous catheter with a left subclavian catheter remaining, unchanged in position. The heart is not enlarged. The left lung is generally clear but there is a small amount of infiltrate present in the infrahilar and medial aspect of the right lower lobe. The lungs are otherwise clear and expanded. No pleural fluid or evidence of pneumothorax is seen. Impression: Interval removal of right jugular catheter. Small amount of infiltrate in the medial right lung base. No evidence of pneumothorax. . Dictated by: GOYO FLORES 02/10/2008 09:26 Electronically signed by: GOYO FLORES 02/10/2008 10:01 Transcribed: 02/10/2008 09:36 SMM Procedure Note Provider, Historical - 02/10/2008 [facility] [address], [place] [address] Admit Date: 02/08/2008 CHACE GLADYS D Sex: F Admit Prov: NAYELI ALVES Date: 1965 Primary Care Prov: PCP, UNKNOWN CMRN: [id number] Room: [place] [address] SSN: [id number] IMAGING SERVICES Ordering Prov: N/A Interpretation PORTABLE CHEST, 02/10/2008 AT 9:20 A.M. Clinical History: Ellis, central venous catheter removal, preop. Comparison is made with previous day's portable chest of 02/09/08.There has been interval removal of the right jugular central venous catheterwith a left subclavian catheter remaining, unchanged in position. The heartis not enlarged. The left lung is generally clear but there is a smallamount of infiltrate present in the infrahilar and medial aspect of the rightlower lobe. The lungs are otherwise clear and expanded. No pleural fluidor evidence of pneumothorax is seen. Impression: Interval removal of right jugular catheter. Small amount ofinfiltrate in the medial right lung base. No evidence of pneumothorax. . Dictated by: GOYO FLORES 02/10/2008 09:26 Electronically signed by: GOYO FLORES 02/10/2008 10:01 Transcribed: 02/10/2008 09:36 SMM us Nolberto Stovall MD DIAGNOSTIC IMAGING ORDERABLE S Final Result * (ABNORMAL) CALCIUM IONIZED (02/10/2008 4:00 AM CDT) CALCIUM IONIZED 4.05(L) 4.76 - 5.16 mg/dL [facility] Blood specimen (specimen) 02/10/2008 4:00 AM CDT 02/10/2008 5:06 AM CDT Nayeli Alves MD CHEMISTRY ORDERABLES Final Re sult Performing Organization Address [facility] Co de Phone Number [facility] [address] [place] [address] * PHOSPHORUS (02/10/2008 4:00 AM CDT) PHOSPHORUS 4.3 2.5 - 4.5 mg/dL [facility] Blood specimen (specimen) 02/10/2008 4:00 AM CDT 02/10/2008 5:06 AM CDT Nayeli Alves MD CHEMISTRY ORDERABLES Final Re sult Performing Organization Address [facility] Co de Phone Number [facility] [address] [place] [address] * MAGNESIUM LEVEL (02/10/2008 4:00 AM CDT) MAGNESIUM 2.1 1.5 - 2.5 mg/dL [facility] Blood specimen (specimen) 02/10/2008 4:00 AM CDT 02/10/2008 5:06 AM CDT Nayeli Alves MD CHEMISTRY ORDERABLES Final Re sult Performing Organization Address [facility] Co de Phone Number [facility] [address] [place] [address] * (ABNORMAL) BASIC METABOLIC PANEL (02/10/2008 4:00 AM CDT) CHLORIDE 104 96 - 108 mmol/L [facility] GLUCOSE 108(H) 65 - 99 mg/dL [facility] SODIUM 136 135 - 145 mmol/L [facility] CALCIUM 7.3(L) 8.4 - 10.2 mg/dL [facility] CO2 26 22 - 30 mmol/L [facility] CREATININE 0.64 0.51 - 0.95 mg/dL [facility] POTASSIUM 3.8 3.5 - 4.9 mmol/L [facility] BUN 10 6 - 20 mg/dL [facility] GFR, >60 >=60 mL/min/1. 7 sq meter [facility] GFR >60 >=60 mL/min/1. 7 sq meter [facility] Comment: Estimated GFR rate interpretative information for both Americans and non- Americans is available on the [facility] Intranet at: [email or web address] Select: Lab Policies and Procedures Select: Reference Ranges - GFR Blood specimen (specimen) 02/10/2008 4:00 AM CDT 02/10/2008 5:06 AM CDT Nayeli Alves MD CHEMISTRY ORDERABLES Edited [facility] [address] [place] [address] * (ABNORMAL) CBC WITH DIFFERENTIAL (02/10/2008 4:00 AM CDT) MCV 83.5 82.0 - 99.0 fL [facility] PLATELETS 236 140 - 350 K/uL [facility] HEMOGLOBIN 9.9(L) 11.8 - 14.8 g/dL [facility] RDW 13.9 11.5 - 14.5 % [facility] WBC 5.1 4.0 - 9.8 K/uL [facility] MCH 27.7 27.2 - 32.6 pg [facility] MPV 9.2(L) 9.3 - 12.4 fL [facility] HEMATOCRIT 29.9(L) 35.5 - 44.0 % [facility] RDW-STDEV 42.1 37.1 - 48.7 fL [facility] RBC 3.58(L) 3.90 - 4.90 M/uL [facility] MCHC 33.1 31.5 - 35.5 % [facility] BASOPHILS ABSOLUTE 0.00 0.00 - 0.20 K/uL [facility] POIKILOCYTES Slight [facility] EOSINOPHILS 1 0 - 7 % [facility] ACANTHOCYTES Slight [facility] MONOCYTE ABSOLUTE 0.10 0.10 - 1.30 K/uL [facility] PLATELET EST. Consistent w/ count Normal [facility] LYMPHOCYTES 39 16 - 45 % [facility] [place] POLYCHROMASIA Slight [facility] NEUTROPHIL ABSOLUTE 2.91 1.90 - 7.00 K/uL [facility] NEUTROPHILS, SEG 41(L) 45 - 70 % [facility] BASOPHILS 0 0 - 2 % [facility] REVIEWED ON SMEAR WBC & Plt Reviewed [facility] MICROCYTES Slight [facility] EOSINOPHIL ABSOLUTE 0.05 0.00 - 0.70 K/uL [facility] MONOCYTES 2(L) 3 - 13 % [facility] OVALOCYTES Slight [facility] ANISOCYTOSIS Slight [facility] LYMPHOCYTE ABSOLUTE 2.04 0.70 - 4.50 K/uL [facility] BANDS 16(H) 0 - 5 % [facility] MACROCYTES Slight [facility] ATYPICAL LYMPHOCYTE 1 0 - 5 % [facility] Blood specimen (specimen) 02/10/2008 4:00 AM CDT 02/10/2008 5:06 AM CDT us Nayeli Alves MD HEMATOLOGY ORDERABLES Edited [facility] [address] [place] [address] * XR FOOT 3+ VW LEFT (02/09/2008 10:40 PM CDT) Anatomical Region Laterality Modality Ankle / Foot Other 02/09/2008 10:4 0 PM CDT Narrative 02/09/2008 11:29 PM CDT [facility] [address] [place], [place] [address] Admit Date: 02/08/2008 GLADYS FREDERICK Sex: F Admit Prov: NAYELI ALVES Date: 1965 Primary Care Prov: PCP, UNKNOWN CMRN: [id number] Room: [place] [address] SSN: [id number] IMAGING SERVICES Ordering Prov: N/A Accession Number: [id number] Interpretation Left foot 3 views 02/09/2008 History: Splint placement. Technique: 3 views of the left foot were obtained. Comparison is made with the study from earlier today. The current study is dated 2255 hours. Findings: A splint has been placed over the left foot and obscures bony detail. Again identified is a transverse fracture through the base of the fifth metatarsal. There appears to be slight distraction between the 2 fracture fragments of approximately 5 mm. No acute fracture is identified. . Dictated by: OMER PANIAGUA 02/09/2008 23:04 Electronically signed by: OMER PANIAGUA 02/09/2008 23:29 Transcribed: 02/09/2008 23:12 AMK Procedure Note Omer Paniagua - 02/09/2008 [facility] [address] [place], [place] [address] Admit Date: 02/08/2008 VINANDERSGLADYS Sex: F Admit Prov: NAYELI ALVES Date: 1965 Primary Care Prov: PCP, UNKNOWN CMRN: [id number] Room: [place] [address] SSN: [id number] IMAGING SERVICES Ordering Prov: N/A Interpretation Left foot 3 views 02/09/2008 History: Splint placement. Technique: 3 views of the left foot were obtained. Comparison is madewith the study from earlier today. The current study is dated 2254hours. Findings: A splint has been placed over the left foot and obscuresbony detail. Again identified is a transverse fracture through the base ofthe fifth metatarsal. There appears to be slight distraction between the2 fracture fragments of approximately 5 mm. No acute fracture isidentified. . Dictated by: OMER PANIAGUA 02/09/2008 23:04 Electronically signed by: OMER PANIAGUA 02/09/2008 23:29 Transcribed: 02/09/2008 23:12 AMK Nayeli Alves MD DIAGNOSTIC IMAGING ORDERABLES Final Result * XR KNEE 1 OR 2 VW LEFT (02/09/2008 6:40 PM CDT) Anatomical Region Laterality Modality Lower Extremity Other 02/09/2008 6:40 PM CDT Narrative 02/09/2008 7:17 PM CDT [facility] [address] [place], [place] [address] Admit Date: 02/08/2008 GLADYS FREDERICK Sex: F Admit Prov: NAYELI ALVES Date: 1965 Primary Care Prov: PCP, UNKNOWN CMRN: [id number] Room: [place] [address] SSN: [id number] IMAGING SERVICES Ordering Prov: N/A Accession Number: [id number] Interpretation Left knee 2 views. 02/09/2008 History: Trauma. Pain. Technique: Two views of the left knee were obtained. No prior studies are available for comparison. Findings: No acute fracture or dislocation is identified. A fabella is present. No joint effusion is seen. Impression: No acute fracture or dislocation. . Dictated by: OMER PANIAGUA 02/09/2008 19:02 Electronically signed by: OMER PANIAGUA 02/09/2008 19:17 Transcribed: 02/09/2008 19:15 AMK Procedure Note Omer Paniagua - 02/09/2008 [facility] [address], [place] [address] Admit Date: 02/08/2008 GLADYS FREDERICK Sex: F Admit Prov: NAYELI ALVES Date: 1965 Primary Care Prov: PCP, UNKNOWN CMRN: [id number] Room: [place] [address] SSN: [id number] IMAGING SERVICES Ordering Prov: N/A Interpretation Left knee 2 views. 02/09/2008 History: Trauma. Pain. Technique: Two views of the left knee were obtained. No prior studiesare available for comparison. Findings: No acute fracture or dislocation is identified. A fabellais present. No joint effusion is seen. Impression: No acute fracture or dislocation. . Dictated by: OMER PANIAGUA 02/09/2008 19:02 Electronically signed by: OMER PANIAGUA 02/09/2008 19:17 Transcribed: 02/09/2008 19:15 AMK us Leonidas Go MD DIAGNOSTIC IMAGING ORDERABLES Fi nal Result * XR FOOT 3+ VW RIGHT (02/09/2008 6:40 PM CDT) Anatomical Region Laterality Modality Ankle / Foot Other 02/09/2008 6:40 PM CDT Narrative 02/09/2008 7:17 PM CDT [facility] [address], [place] [address] Admit Date: 02/08/2008 LACGLADYS CARVAJAL Sex: F Admit Prov: NAYELI ALVES Date: 1965 Primary Care Prov: PCP, UNKNOWN CMRN: [id number] Room: [place] [address] SSN: [id number] IMAGING SERVICES Ordering Prov: N/A Accession Number: [id number] Interpretation Right foot 3 views. 02/09/2008 History: Trauma. Pain. Technique: 3 views of the right foot were obtained. No prior studies are available for comparison. Findings: A drain is identified along the lateral aspect of the right foot. Deformity of the distal phalanges of the right fourth and fifth digit are identified, of uncertain significance. Osteomyelitis cannot be excluded. Joint spaces are otherwise well maintained. No other destructive changes are seen. . Dictated by: OMER PANIAGUA 02/09/2008 19:03 Electronically signed by: OMER PANIAGUA 02/09/2008 19:17 Transcribed: 02/09/2008 19:15 AMK Procedure Note Omer Paniagua - 02/09/2008 [facility] [address] [place] [place], [place] [address] Admit Date: 02/08/2008 GLADYS FREDERICK Sex: F Admit Prov: NAYELI ALVES Date: 1965 Primary Care Prov: PCP, UNKNOWN CMRN: [id number] Room: [place] [address] SSN: [id number] IMAGING SERVICES Ordering Prov: N/A Interpretation Right foot 3 views. 02/09/2008 History: Trauma. Pain. Technique: 3 views of the right foot were obtained. No prior studiesare available for comparison. Findings: A drain is identified along the lateral aspect of the rightfoot. Deformity of the distal phalanges of the right fourth and fifth digitare identified, of uncertain significance. Osteomyelitis cannot beexcluded. Joint spaces are otherwise well maintained. No other destructivechanges are seen. . Dictated by: OMER PANIAGUA 02/09/2008 19:03 Electronically signed by: OMER PANIAGUA 02/09/2008 19:17 Transcribed: 02/09/2008 19:15 AMK us Leonidas Go MD DIAGNOSTIC IMAGING ORDERABLES Fi nal Result * XR ANKLE 3+ VW RIGHT (02/09/2008 4:00 PM CDT) Anatomical Region Laterality Modality Ankle / Foot Other 02/09/2008 4:00 PM CDT Narrative 02/10/2008 3:56 PM CDT [facility] [address] [place], [place] [address] Admit Date: 02/08/2008 GLADYS FREDERICK Sex: F Admit Prov: NAYELI ALVES Date: 1965 Primary Care Prov: PCP, UNKNOWN CMRN: [id number] [address] [id number] IMAGING SERVICES Ordering Prov: N/A Accession Number: [id number] Interpretation Three portable views of the right ankle joint on 02/09/2008 at 1605 hours. History: Evaluate for fracture. Pain. Three views of the right ankle joint demonstrates bimalleolar soft tissue swelling. A displaced fracture is not appreciated. The talotibial joint is well approximated. Some widening along the medial aspect of the talotibial joint is present and may represent a post dislocation finding. Clinical correlation is recommended. . Dictated by: DAWN MOSHER 02/09/2008 16:34 Electronically signed by: DAWN MOSHER 02/10/2008 15:56 Transcribed: 02/09/2008 19:40 AMK Procedure Note Dawn Mosher MD - 02/10/2008 [facility] [address] [place], [place] [address] Admit Date: 02/08/2008 GLADYS FREDERICK Sex: F Admit Prov: NAYELI ALVES Date: 1965 Primary Care Prov: PCP, UNKNOWN CMRN: [id number] Room: [place] [address] SSN: [id number] IMAGING SERVICES Ordering Prov: N/A Interpretation Three portable views of the right ankle joint on 02/09/2008 at 1605hours. History: Evaluate for fracture. Pain. Three views of the right ankle joint demonstrates bimalleolar softtissue swelling. A displaced fracture is not appreciated. The talotibial joint is well approximated. Some widening along themedial aspect of the talotibial joint is present and may represent a post dislocation finding. Clinical correlation is recommended. . Dictated by: DAWN MOSHER 02/09/2008 16:34 Electronically signed by: DAWN MOSHER 02/10/2008 15:56 Transcribed: 02/09/2008 19:40 AMK us Nayeli Alves MD DIAGNOSTIC IMAGING ORDERABLES Final Result * XR CHEST PA OR AP (02/09/2008 4:00 PM CDT) Anatomical Region Laterality Modality Chest Other 02/09/2008 4:00 PM CDT Narrative 02/10/2008 7:13 AM CDT [place] [id number] [place], [place] [address] Admit Date: 02/08/2008 GLADYS FREDERICK Sex: F Admit Prov: NAYELI ALVES Date: 1965 Primary Care Prov: PCP, UNKNOWN CMRN: [id number] Room: [place] [address] SSN: [id number] IMAGING SERVICES Ordering Prov: N/A Accession Number: [id number] Interpretation Portable chest 02/09/2008 1600 hours Clinical history: Ellis, central venous catheter placement A portable AP semiupright radiograph of the chest demonstrates an indwelling right jugular central venous catheter with tip in the upper aspect of the superior vena cava and an indwelling left subclavian central venous catheter also with the tip in the upper superior vena cava. The lungs are generally clear and expanded. There is no evidence of pneumothorax. The heart is not enlarged. Impression: Indwelling right jugular and left subclavian catheters as noted above. No evidence of pneumothorax. Clear lungs. . Dictated by: GOYO FLORES 02/09/2008 16:27 Electronically signed by: GOYO FLORES 02/10/2008 07:13 Transcribed: 02/09/2008 18:01 AMK Procedure Note Provider, Historical - 02/10/2008 [facility] [address] [place], [place] [address] Admit Date: 02/08/2008 GLADYS FREDERICK Sex: F Admit Prov: NAYELI ALVES Date: 1965 Primary Care Prov: PCP, UNKNOWN CMRN: [id number] Room: [place] [address] SSN: [id number] IMAGING SERVICES Ordering Prov: N/A Interpretation Portable chest 02/09/2008 1600 hours Clinical history: Ellis, central venous catheter placement A portable AP semiupright radiograph of the chest demonstrates an indwelling right jugular central venous catheter with tip in theupper aspect of the superior vena cava and an indwelling left subclaviancentral venous catheter also with the tip in the upper superior vena cava.The lungs are generally clear and expanded. There is no evidence of pneumothorax. The heart is not enlarged. Impression: Indwelling right jugular and left subclavian catheters as notedabove. No evidence of pneumothorax. Clear lungs. . Dictated by: GOYO FLORES 02/09/2008 16:27 Electronically signed by: GOYO FLORES 02/10/2008 07:13 Transcribed: 02/09/2008 18:01 AMK Nayeli Alves MD DIAGNOSTIC IMAGING ORDERABLES Final Result * TYPE AND CROSSMATCH (02/09/2008 12:24 PM CDT) SPECIMEN LIFE 3 days from drawdate [facility] HISTORY CHECK No Historical ABO/Rh [facility] ABO/RH TYPE B Positive [facility] ANTIBODY SCREEN Negative [facility] Blood specimen (specimen) 02/09/2008 12:24 PM CDT Nayeli Alves MD BLOOD BANK ORDERABLES Edited [facility] [address] [place] [address] * (ABNORMAL) PHOSPHORUS (02/09/2008 4:30 AM CDT) [facility] PHOSPHORUS 5.4(H) 2.5 - 4.5 mg/dL [facility] Blood specimen (specimen) 02/09/2008 4:30 AM CDT 02/09/2008 4:43 AM CDT Nayeli Alves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
[2025-01-17 11:38] LABS: Anion Gap 12 mmol/L (4-12); Blood Urea Nitrogen 20 mg/dL (7-17); Calcium 9.5 mg/dL (8.4-10.2); Carbon Dioxide 29 mmol/L (22-30); Chloride 99 mmol/L (98-107); Estimated Glomerular Filt Rate 59; Glucose 72 mg/dL (65-110); Potassium 3.7 mmol/L (3.4-5.0); Sodium 140 mmol/L (137-145)
== END 2025-01-17 09:29 | disposition home or self-care (01) ==
PROVIDERS: Anesthesiology; PCP Family Medicine; Visit Provider Surgery
DX: K46.9 Unspecified abdominal hernia without obstruction or gangrene (principal); K43.2 Incisional hernia without obstruction or gangrene; Z79.899 Other long term (current) drug therapy
CPT/HCPCS: 36415; 80048; 86850; 86900; 86901; 93005

== ENCOUNTER 2025-01-25 03:01 | Day surgery (SDC) | payer BC, SELFPAY ==
[2025-01-14 10:38] VITALS: BMI 31.0
--- NOTE | 2025-01-14 10:47 | PC.NURSE ---
Report to the Outpatient Waiting Room, entrance under the green pavilion located off [facility], at time _0900_ on date _[id number]_. Planned Procedure Time: _1100_.? Time changes happen often and if your time is changed the preop area will call you the afternoon before. - You and your visitor will be asked to self-screen and do not enter if you have any COVID symptoms. Please call surgeon if you need to reschedule. - A mask is optional within the hospital at this time. Patients may have clear liquids (water, carbonated beverages, clear teas, apple juice) until 3 hours prior to surgery with a maximum of 20 ounces. - No food from midnight until time of surgery and no smoking, or chewing tobacco (or any form of nicotine). No chewing gum, candy or mints. Take only the following medications with a SIP of water on the morning of surgery: ___Flonase if needed.____ DO NOT STOP ANY OF YOUR OTHER PRESCRIPTION MEDICATIONS PRIOR TO SURGERY EXCEPT THE FOLLOWING Hold all vitamins and supplements for 3 days per anesthesiologist. Medications to discontinue per physician Hold Zepbound for 10 days. Date to take last dose Please no make-up, nail syrian, hairspray, perfume, deodorant, or body powder the day of surgery.? No jewelry (including any body piercings) or valuables the day of surgery, leave them at home.? Please take a shower or bath the night before, or the morning of, surgery with an antibacterial soap.? Wear comfortable, loose fitting clothing.? - Jewelry must be removed prior to entering the operating room.? Rings and piercings that are not removed may be cut off. - The hospital will not accept responsibility for valuables.? - Please leave all valuables, including medications, at home the day of surgery. If you are going home after surgery, a licensed truck driver rubbish collector must drive you home.? - NO public transportation without another adult if you receive anesthesia. - We recommend that an adult stay with you for 24 hours following discharge. - We also recommend that you do not drive, make important decision, drink alcoholic beverages, or take any drugs that were not prescribed by your health care provider for at least 24 hours after your discharge time. Follow any additional instructions given to you from your surgeon. Telephone instructions given to __Lynn__and asked if any additional questions and then verbalized understanding. Patient advised to call surgeon office or pre surgery nurse liaison [phone] if any additional questions.
[2025-01-25] VITALS (9 sets, daily range): BP systolic 108–127; BP diastolic 61–74; PULSE 52–77; RESP 12–20; TEMP 36.1–36.3; O2SAT 95–100; BMI 31.2
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
--- OUTSIDE RECORDS SUMMARY | 2025-01-25 03:03 | XMS_ITS | Encounter Summary ---
Author Organization [facility] Address 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 Gender Identity Not on file Sexual Orientation [...] CDT) RBC 3.90 3.90 - 4.90 M/uL [facility] MCHC 30.8(L) 31.5 - 35.5 % [facility] MCV 89.0 82.0 - 99.0 fL [facility] PLATELETS 457(H) 140 - 350 K/uL [facility] HEMOGLOBIN 10.7(L) 11.8 - 14.8 g/dL [facility] RDW 13.9 11.5 - 14.5 % [facility] WBC 6.2 4.0 - 9.8 K/uL [facility] MCH 27.4 27.2 - 32.6 pg [facility] MPV 9.2(L) 9.3 - 12.4 fL [facility] HEMATOCRIT 34.7(L) 35.5 - 44.0 % [facility] RDW-STDEV 44.7 37.1 - 48.7 fL [facility] MONOCYTE ABSOLUTE 0.59 0.10 - 1.30 K/uL [facility] NEUTROPHILS 39(L) 45 - 70 % [facility] NEUTROPHIL ABSOLUTE 2.40 1.90 - 7.00 K/uL [facility] EOSINOPHILS 2 0 - 7 % [facility] EOSINOPHIL ABSOLUTE 0.15 0.00 - 0.70 K/uL [facility] LYMPHOCYTES 49(H) 16 - 45 % [facility] LYMPHOCYTE ABSOLUTE 3.03 0.70 - 4.50 K/uL [facility] BASOPHILS 1 0 - 2 % [facility] BASOPHILS ABSOLUTE 0.04 0.00 - 0.20 K/uL [facility] MONOCYTES 10 3 - 13 % [facility] Blood specimen (specimen) 03/06/2008 5:01 AM CDT 03/06/2008 6:31 AM CDT Narrative INTERFACE SYSTEM - 03/06/2008 7:51 AM CDT RM 128 us Subha Sosa MD HEMATOLOGY ORDERABLES Edited INTERFACE SYSTEM Refer to clinic/hospital department [facility] CLIA# [id number] [address] [place], [place] [address] * BASIC METABOLIC PANEL (03/06/2008 5:01 AM CDT) GLUCOSE 80 65 - 99 mg/dL [facility] SODIUM 138 135 - 145 mmol/L [facility] CALCIUM 8.5 8.4 - 10.2 mg/dL [facility] CO2 24 22 - 30 mmol/L [facility] CREATININE 0.65 0.51 - 0.95 mg/dL [facility] POTASSIUM 4.6 3.5 - 4.9 mmol/L [facility] BUN 8 6 - 20 mg/dL [facility] CHLORIDE 102 96 - 108 mmol/L [facility] GFR, >60 >=60 mL/min/1.7 sq meter [facility] GFR >60 >=60 mL/min/1.7 sq meter [facility] Comment: Modification of Diet in Renal Disease (MDRD) study formula. Estimated GFR rate interpretative information for both Americans and non- Americans is available on the [facility] Intranet at: [email or web address] Select: Lab Policies and Procedures Select: Reference Ranges - GFR Blood specimen (specimen) 03/06/2008 5:01 AM CDT 03/06/2008 6:31 AM CDT Narrative [facility] - 03/06/2008 7:04 AM CDT RM 128 us Subha Sosa MD CHEMISTRY ORDERABLES Edited [facility] CLIA# [id number] [address] [place] [address] * (ABNORMAL) CBC WITH DIFFERENTIAL (03/01/2008 5:35 AM CDT) HEMATOCRIT 30.0(L) 35.5 - 44.0 % [facility] RDW-STDEV 46.9 37.1 - 48.7 fL [facility] RBC 3.33(L) 3.90 - 4.90 M/uL [facility] MCHC 31.0(L) 31.5 - 35.5 % [facility] MCV 90.1 82.0 - 99.0 fL [facility] PLATELETS 461(H) 140 - 350 K/uL [facility] HEMOGLOBIN 9.3(L) 11.8 - 14.8 g/dL [facility] RDW 14.3 11.5 - 14.5 % [facility] WBC 6.2 4.0 - 9.8 K/uL [facility] MCH 27.9 27.2 - 32.6 pg [facility] MPV 8.6(L) 9.3 - 12.4 fL [facility] BASOPHILS ABSOLUTE 0.02 0.00 - 0.20 K/uL [facility] MONOCYTES 10 3 - 13 % [facility] MONOCYTE ABSOLUTE 0.64 0.10 - 1.30 K/uL [facility] NEUTROPHILS 46 45 - 70 % [facility] NEUTROPHIL ABSOLUTE 2.86 1.90 - 7.00 K/uL [facility] EOSINOPHILS 8(H) 0 - 7 % [facility] EOSINOPHIL ABSOLUTE 0.49 0.00 - 0.70 K/uL [facility] LYMPHOCYTES 35 16 - 45 % [facility] LYMPHOCYTE ABSOLUTE 2.19 0.70 - 4.50 K/uL [facility] BASOPHILS 0 0 - 2 % [facility] Blood specimen (specimen) 03/01/2008 5:35 AM CDT 03/01/2008 6:53 AM CDT Narrative INTERFACE SYSTEM - 03/01/2008 7:30 AM CDT RM 128 Kai Arriaza MD HEMATOLOGY ORDERABLES Edited INTERFACE SYSTEM Refer to clinic/hospital department [facility] CLIA# [id number] [address] [place] [place] [address] * (ABNORMAL) COMPREHENSIVE METABOLIC PANEL (03/01/2008 5:35 AM CDT) ALKALINE PHOSPHATASE 73 35 - 104 U/L [facility] BILIRUBIN TOTAL 0.2 0.2 - 1.0 mg/dL [facility] CO2 24 22 - 30 mmol/L [facility] TOTAL PROTEIN 5.5(L) 6.3 - 8.6 g/dL [facility] POTASSIUM 4.1 3.5 - 4.9 mmol/L [facility] GLUCOSE 77 65 - 99 mg/dL [facility] AST 12 12 - 32 U/L [facility] BUN 7 6 - 20 mg/dL [facility] CALCIUM 7.9(L) 8.4 - 10.2 mg/dL [facility] CHLORIDE 105 96 - 108 mmol/L [facility] ALBUMIN 2.5(L) 3.4 - 4.8 g/dL [facility] CREATININE 0.62 0.51 - 0.95 mg/dL [facility] SODIUM 138 135 - 145 mmol/L [facility] ALT 11 0 - 31 U/L [facility] GFR, >60 >=60 mL/min/1. 7 sq meter [facility] GFR >60 >=60 mL/min/1. 7 sq meter [facility] Comment: Modification of Diet in Renal Disease (MDRD) study formula. Estimated GFR rate interpretative information for both Americans and non- Americans is available on the [facility] Intranet at: [email or web address] Select: Lab Policies and Procedures Select: Reference Ranges - GFR Blood specimen (specimen) 03/01/2008 5:35 AM CDT 03/01/2008 6:53 AM CDT Narrative [facility] - 03/01/2008 7:34 AM CDT 128 Kai Arriaza MD CHEMISTRY ORDERABLES Edited [facility] CLIA# [id number] [address] [place], [place] [address] * (ABNORMAL) CBC WITH DIFFERENTIAL (02/26/2008 5:18 AM CDT) HEMATOCRIT 28.7(L) 35.5 - 44.0 % [facility] WBC 5.6 4.0 - 9.8 K/uL [facility] MCHC 30.3(L) 31.5 - 35.5 % [facility] MPV 8.3(L) 9.3 - 12.4 fL [facility] HEMOGLOBIN 8.7(L) 11.8 - 14.8 g/dL [facility] RDW-STDEV 47.1 37.1 - 48.7 fL [facility] MCH 27.2 27.2 - 32.6 pg [facility] PLATELETS 529(H) 140 - 350 K/uL [facility] MCV 89.7 82.0 - 99.0 fL [facility] RBC 3.20(L) 3.90 - 4.90 M/uL [facility] RDW 14.3 11.5 - 14.5 % [facility] LYMPHOCYTES 35 16 - 45 % [facility] LYMPHOCYTE ABSOLUTE 1.94 0.70 - 4.50 K/uL [facility] BASOPHILS 1 0 - 2 % [facility] BASOPHILS ABSOLUTE 0.03 0.00 - 0.20 K/uL [facility] MONOCYTES 12 3 - 13 % [facility] MONOCYTE ABSOLUTE 0.67 0.10 - 1.30 K/uL [facility] NEUTROPHILS 49 45 - 70 % [facility] NEUTROPHIL ABSOLUTE 2.70 1.90 - 7.00 K/uL [facility] EOSINOPHILS 4 0 - 7 % [facility] EOSINOPHIL ABSOLUTE 0.23 0.00 - 0.70 K/uL [facility] Blood specimen (specimen) 02/26/2008 5:18 AM CDT 02/26/2008 6:36 AM CDT Narrative INTERFACE SYSTEM - 02/26/2008 8:08 AM CDT 128 us Subha Sosa MD HEMATOLOGY ORDERABLES Edited INTERFACE SYSTEM Refer to clinic/hospital department [facility] CLIA# [id number] [address] [facility] [place] [place] [address] * (ABNORMAL) CBC WITH DIFFERENTIAL (02/25/2008 6:40 AM CDT) MPV 8.4(L) 9.3 - 12.4 fL [facility] HEMATOCRIT 28.6(L) 35.5 - 44.0 % [facility] RDW-STDEV 45.5 37.1 - 48.7 fL [facility] RBC 3.25(L) 3.90 - 4.90 M/uL [facility] MCHC 31.1(L) 31.5 - 35.5 % [facility] MCV 88.0 82.0 - 99.0 fL [facility] PLATELETS 503(H) 140 - 350 K/uL [facility] HEMOGLOBIN 8.9(L) 11.8 - 14.8 g/dL [facility] RDW 14.2 11.5 - 14.5 % [facility] WBC 5.6 4.0 - 9.8 K/uL [facility] MCH 27.4 27.2 - 32.6 pg [facility] BASOPHILS 1 0 - 2 % [facility] BASOPHILS ABSOLUTE 0.04 0.00 - 0.20 K/uL [facility] MONOCYTES 10 3 - 13 % [facility] MONOCYTE ABSOLUTE 0.56 0.10 - 1.30 K/uL [facility] NEUTROPHILS 54 45 - 70 % [facility] NEUTROPHIL ABSOLUTE 3.06 1.90 - 7.00 K/uL [facility] EOSINOPHILS 4 0 - 7 % [facility] EOSINOPHIL ABSOLUTE 0.20 0.00 - 0.70 K/uL [facility] LYMPHOCYTES 32 16 - 45 % [facility] LYMPHOCYTE ABSOLUTE 1.78 0.70 - 4.50 K/uL [facility] Blood specimen (specimen) 02/25/2008 6:40 AM CDT 02/25/2008 7:17 AM CDT Narrative INTERFACE SYSTEM - 02/25/2008 7:58 AM CDT 128 us Osmin Schmidt MD HEMATOLOGY ORDERABLES Edited INTERFACE SYSTEM Refer to clinic/hospital department [facility] CLIA# [id number] [address] [place] [address] * (ABNORMAL) COMPREHENSIVE METABOLIC PANEL (02/25/2008 6:40 AM CDT) CREATININE 0.58 0.51 - 0.95 mg/dL [facility] SODIUM 138 135 - 145 mmol/L [facility] ALT 10 0 - 31 U/L [facility] ALKALINE PHOSPHATASE 73 35 - 104 U/L [facility] BILIRUBIN TOTAL 0.3 0.2 - 1.0 mg/dL [facility] CO2 25 22 - 30 mmol/L [facility] TOTAL PROTEIN 5.0(L) 6.3 - 8.6 g/dL [facility] POTASSIUM 3.7 3.5 - 4.9 mmol/L [facility] GLUCOSE 81 65 - 99 mg/dL [facility] AST 15 12 - 32 U/L [facility] BUN 5(L) 6 - 20 mg/dL [facility] CALCIUM 7.6(L) 8.4 - 10.2 mg/dL [facility] CHLORIDE 104 96 - 108 mmol/L [facility] ALBUMIN 2.1(L) 3.4 - 4.8 g/dL [facility] GFR, >60 >=60 mL/min/1. 7 sq meter [facility] GFR >60 >=60 mL/min/1. 7 sq meter [facility] Comment: Modification of Diet in Renal Disease (MDRD) study formula. Estimated GFR rate interpretative information for both Americans and non- Americans is available on the [facility] Intranet at: [email or web address] Select: Lab Policies and Procedures Select: Reference Ranges - GFR Blood specimen (specimen) 02/25/2008 6:40 AM CDT 02/25/2008 7:17 AM CDT Narrative [facility] - 02/25/2008 7:54 AM CDT RM 128 us Osmin Schmidt MD CHEMISTRY ORDERABLES Edited [facility] CLIA# [id number] [address] [place] [address] documented in this encounter Visit Diagnoses Not on filedocumented in this encounter
--- OUTSIDE RECORDS SUMMARY | 2025-01-25 03:03 | XMS_ITS | Encounter Summary ---
Author Organization [facility] Address 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, [place] [address] Admit Date: 03/15/2008 ASHLEE FREDERICK Sex: F Admit Prov: JANES PARISH Date: 1965 Primary Care Prov: PCP, UNKNOWN CMRN: [id number] [id number] [facility] Ordering Prov: JANES PARISH Accession Number: [id number] Interpretation This procedure was performed at the request of the orthopedic physician. Please see the orthopedic physician s report for details, which can be found in the patient s medical record. Dictated by: RADIOLOGY, DEPARTMENT O Electronically signed by: RADIOLOGY, DEPARTMENT 03/20/2008 12:47 Transcribed: 03/20/2008 11:44 AMK Procedure Note Provider, Historical - 03/20/2008 [place] [address] Admit Date: 03/15/2008 ASHLEE FREDERICK Sex: F Admit Prov: JANES PARISH Date: 1965 Primary Care Prov: PCP, UNKNOWN CMRN: [id number] [facility] [id number] IMAGING SERVICES Ordering Prov: JANES PARISH Interpretation [...] PM CDT Narrative 03/20/2008 12:47 PM CDT [address] [address] Admit Date: 03/15/2008 ASHLEE FREDERICK Sex: F Admit Prov: JANES PARISH Date: 1965 Primary Care Prov: PCP, UNKNOWN CMRN: [id number] [facility] [id number] IMAGING SERVICES Ordering Prov: JANES PARISH Accession Number: [id number] Interpretation This procedure was performed at the request of the orthopedic physician. Please see the orthopedic physician s report for details, which can be found in the patient s medical record. Dictated by: RADIOLOGY, DEPARTMENT O Electronically signed by: RADIOLOGY, DEPARTMENT 03/20/2008 12:47 Transcribed: 03/20/2008 11:44 AMK Procedure Note Provider, Historical - 03/20/2008 [facility] [address] [place], [place] [address] Admit Date: 03/15/2008 ASHLEE FREDERICK Sex: F Admit Prov: JANES PARISH Date: 1965 Primary Care Prov: PCP, UNKNOWN CMRN: [id number] [facility] [id number] IMAGING SERVICES Ordering Prov: JANES PARISH Interpretation [...]
--- OUTSIDE RECORDS SUMMARY | 2025-01-25 03:03 | XMS_ITS | Data Portability ---
Author Organization [facility] Address [address] [place] [address] Care Team Providers Care Diagnostic Technician Name Role Phone BILL FLOYD Primary Care Provider [phone] Assessment Encounter Date Assessment Date Assessment LastModified [...] Imaging MAMMO, screening, digital, bilateral 2023 024 [facility], [address], [place], [address], 5 05:01:19 MAMMO, screening, digital, bilateral 2022 023 [facility], [address], [place], [address], 3 15:17:41 Medication Orders None recorded. 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 Not Available [facility] (Lab) [address] [facility], [place], [address], 05/19/2023 11:17:00 05/17/20 24 05/17/2024 IMAGE GUIDE [...] as clini liz rodriguez nted. Not Available [facility] (Lab) [address] [facility], [place], [address], 05/23/2024 06:34:04 06/19/20 23 06/19/2023 MAMMO , scree reji, digit al, bilat eral No observ ation record ed. [facility] [address], [place], [address], 06/19/2023 23:02:44 11/23/19 25 11/23/2024 MAMMO , scree reji, digit al, bilat eral No observ ation record ed. [facility] [address], [place], [address], 11/24/2024 18:56:29 Result Notes None recorded. Problems Name Problem SNOMED Code Status Onset Date Resolution Date Notes Provider Name and Address Organization Details Recorded Time Screening for malignant neoplasm of rectum Active 2018 Encounter for screening for malignant neoplasm of rectum;Pr actice ID: 0001 Not Available [facility] 0 14:23:59 Finding of body mass index 253839746 Active 2018 Body mass index (BMI) 40.0-44.9 , adult;Pra ctice ID: 0001 Not Available [facility] 0 14:23:59 Specializ ed medical examinati on Active 2012 Gynecolog ical Examinati on;Record ed Elsewhere : No Locati on: [facility] So urce: EHR Chron ic: N Practic e ID: 0001 Bill able Time: 09:30:00 AM Not Available [facility] 0 14:23:[address] Concept Active 2017 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) (routine) w/o abn findings; Recorded Elsewhere : No Locati on: [facility] So urce: EHR Chron ic: N Practic e ID: 0001 Bill able Time: 09:30:00 AM Not Available [facility] 0 14:23:59 Low grade squamous intraepit helial lesion on cervical Papanicol aou smear 63389804012 105 Active 2016 Low grade squamous intraepit helial lesion on cytologic smear of cervix (LGSIL);R ecorded Elsewhere : No Locati on: [facility] So urce: EHR Chron ic: N Practic e ID: 0001 Bill able Time: 09:15:00 AM Not Available [facility] 0 14:24:[address] Concept Active 2017 Encntr for general adult medical exam w/o abnormal findings; Recorded Elsewhere : No Locati on: [facility] So urce: EHR Chron ic: N Practic e ID: 0001 Bill able Time: 09:30:00 AM Not Available [facility] 0 14:24:00 Screening for malignant neoplasm of cervix Active 2011 Screening for malignant neoplasms of the cervix;Re corded Elsewhere : No Locati on: [facility] So urce: EHR Chron ic: N Practic e ID: 0001 Bill able Time: 01:00:00 PM Not Available [facility] 0 14:24:00 Cytologic finding 680829550 Active 2014 Cervical Pap smear w/ LGSIL;Rec orded Elsewhere : No Locati on: [facility] So urce: EHR Chron ic: N Practic e ID: 0001 Bill able Time: 01:00:00 PM Not Available [facility] 0 14:24:00 Evaluatio n finding Active 2017 Hematuria , unspecifi ed;Record ed Elsewhere : No Locati on: [facility] So urce: EHR Chron ic: N Practic e ID: 0001 Bill able Time: 09:30:00 AM Not Available [facility] 0 14:24:00 Adult health examinati on Active 2013 ROUTINE MEDICAL EXAM;Umer rded Elsewhere : No Locati on: [facility] So urce: EHR Chron ic: N Practic e ID: 0001 Bill able Time: 01:00:00 PM Not Available [facility] 0 14:24:00 Radiologi c finding 856499837 Active 2017 Oth abn and inconclus sho findings on dx imaging of breast;Re corded Elsewhere : No Locati on: [facility] So urce: EHR Chron ic: N Practic e ID: 0001 Bill able Time: 01:05:53 PM Not Available [facility] 0 14:24:00 Hypertrop hy of uterus 358796618 Active 2011 Hypertrop hy of uterus;Re corded Elsewhere : No Locati on: [facility] So urce: EHR Chron ic: N Practic e ID: 0001 Bill able Time: 11:00:00 AM Not Available [facility] 0 14:24:00 Atypical squamous cells of undetermi frederick significa nce on cervical Papanicol aou smear 436348214 Active 2018 Atyp squam cell of undet signfc cyto smr crvx (ASC-US); Recorded Elsewhere : No Locati on: [facility] So urce: EHR Chron ic: N Practic e ID: 0001 Bill able Time: 11:39:14 AM Not Available [facility] 0 14:24:01 Procedure on genitouri nary system Active 2011 Steriliza tion;Umer rded Elsewhere : No Locati on: [facility] So urce: EHR Chron ic: N Practic e ID: 0001 Bill able Time: 10:15:00 AM Not Available [facility] 0 14:24:01 test negative 345903370 Active 2011 examinati on or test, negative result;Re corded Elsewhere : No Locati on: [facility] So urce: EHR Chron ic: N Practic e ID: 0001 Bill able Time: 02:00:00 PM Not Available [facility] 0 14:24:01 Atypical glandular cells on cervical Papanicol aou smear 586870651 Active 2014 Abnormal glandular Papanicol aou smear of cervix;Re corded Elsewhere : No Locati on: [facility] So urce: EHR Chron ic: N Practic e ID: 0001 Bill able Time: 01:00:00 PM Not Available [facility] 0 14:24:01 Cyst of ovary 29870881 Active 2011 Other and unspecifi ed ovarian cyst;Umer rded Elsewhere : No Locati on: [facility] So urce: EHR Chron ic: N Practic e ID: 0001 Bill able Time: 01:00:00 PM Not Available [facility] 0 14:24:02 Screening for malignant neoplasm of colon Active 2010 Special screening for malignant neoplasms , colon;Pra ctice ID: 0001 Not Available [facility] 0 14:24:02 History of tubal ligation 359677712 Active 2012 Tubal ligation status;Pr actice ID: 0001 Not Available [facility] 0 14:24:[address] Concept Active 2017 Encounter for general adult medical exam w abnormal findings; Practice ID: 0001 Not Available [facility] 0 14:24:04 Problem Notes None recorded. Procedures Surgical History Date Name Laterality Status Provider Name and Address Organization Details Recorded Time Appendectomy completed Bettina Dumont [facility] 05/17/2024 09:41:53 Imaging Results Imaging Date Name Status LastModified by Organiz ation Details LastModified Time 06/19/2023 MAMMO, screening, digital, bilateral completed [facility] [address], [place], [address], 06/19/2023 23:02:44 11/23/2024 MAMMO, screening, digital, bilateral completed [facility] [address], [place], [address], 11/24/2024 18:56:29 Procedure Notes None recorded. Medical [...] Elsewher e: No Locat ion: Megan seth [facility] odify By: devon shaw DateTime : [...] Elsewher e: No Locat ion: Lalito rolo [facility] odify By: devon shaw DateTime : 07/30/20 12 09:08:08 AM Not Available Not Available Not Available lisinopri l 10 mg tablet take 1 tablet by oral route every day 05/17 completed Prescrib ed Elsewher e: Yes [facility] By: henry friedmanunter DateTime : 07/08/20 17 09:15:00 AM Not Available Not Available Not Available lisinopri l 5 mg tablet 05/17 completed Not Available Not Available Not Available diazepam 10 mg tablet take 1 tablet (10MG) by oral route 1-2 hours before procedur e 08/13 completed Prescrib ed Elsewher e: No [facility]at [facility] odify By: devon shaw DateTime : 07/30/20 12 09:08:08 AM Not Available Not Available Not Available ketorolac 60 mg/2 mL intramusc ular solution inject 1 millilit er (30MG) by intramus cular route , pt to bring to office 08/13 completed Prescrib ed Elsewher e: No Locat ion: [facility] odify By: devon shaw DateTime : 07/30/20 09:08:08 AM Not Available Not Available Not Available Lo Loestrin Fe 1 mg-10 mcg (24)/10 mcg (2) tablet take 1 tablet by oral route every day 08/13 completed Prescrib ed Elsewher e: No Locat ion: [facility] odify By: devon shaw DateTime : [...] Updated DateTime 05/15/2023 170.18 cm 38.4 kg/m2 697489.1 3 g 116 mm[Hg] 76 mm[Hg] Debbie Vizcaino [facility] 3 10:42:07 Date Recorded Body height Body mass index (BMI) Body weight Systolic blood pressure Diastolic blood pressure Provider Name and Address Organization Details Last Updated DateTime 05/17/2024 170.18 cm 33.7 kg/m2 53777.36 g 112 mm[Hg] 78 mm[Hg] Bettina Dumont [facility] 4 09:40:09 Social History Question Answer Notes LastModified by Organizat ion Details LastModified Time Tobacco Smoking Status Never Smoker Bettina Dumont null, [facility] 05/17/2024 09:29:09 What Is Your Level [...] Or The Highest Degree You Have Received? [id number] Information not available 05/15/2023 What Is Your [...] Anxious, Or Unable To Sleep At Night)? IY1790-1 Information not available 05/15/2023 Do You Use [...] Reported Notes:Brother: Congenital he art disease Father: [place] Mother: Diabetes mellitus, CVA with procedure- emphysema, smoker Medical History Condition Response Allergies (Food, seasonal, environmental ) N Other N Breast Cancer N Drug/Latex Allergies/Reactions N Blood Transfusion N Lung Disease N Dermatologic Disorders N Defects or Inherited Disease N Breast Problem N Gestational Diabetes N Hematologic disorders N Anesthesia Complications N History of STI N Deep Vein Thrombosis N Polycystic ovary syndrome N Anxiety Disorder N Autoimmune disease N Arthritis N Polyps N Infertility N History of abnormal pap N Acid Reflux (GERD) N Cancer N Varicosities N Stroke N Neurologic/Epilepsy N Endometriosis N High Cholesterol N Fibromyalgia N Headaches N Kidney Disease N Heart Problems N [...] SNOMED-CT Code Diagnosis ICD10 Code Diagnosis Note [id number] JONAH Joseph [place] [address] [address] 05/15/2023 10:07:11 05/15/2023 11:04:17 Gynecologic examination 59352968 Z01.419 Take Calcium with Vitamin D 12-1500mg daily. Do monthly self breast exams. It is advised to get annual flu shot in the fall and she could obtain at [facility] or [facility] care clinic. If you haven't received [...] needed Screening for malignant neoplasm of breast 500373521 Z12.39 [id number] JONAH Joseph [place] [address] [address] 05/17/2024 09:37:35 05/17/2024 10:55:54 Gynecologic examination 24987954 Z01.419 WWEpostmen opausalpap updateddec lined STI screenmamm [...] answered. Screening for malignant neoplasm of breast 322439392 Z12.39 Health Concerns Section Related Observation LastModified by Organization Detai ls LastModified Time None Recorded Concern Status LastModified by Organization Details LastModified Time None Recorded Advance Directives Directive None Recorded Payers Encounter Date Sequence Insurance Name Policy Number Policy Emmanuel Covered Member ID Emmanuel Member ID Guarantor Name 05/15/2023 1 [place] [id number] Brian Frederick [id number] Gladys Frederick 05/17/2024 1 [place] [id number] Brian Frederick [id number] Gladys Frederick Notes Date Note Type Note Provider Name and Address Organization Details Recorded Time 3 text/html 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 05/17/2024 10:38:33 OBGyn Episode No OBEpisode recorded.
--- OUTSIDE RECORDS SUMMARY | 2025-01-25 03:03 | XMS_ITS | Encounter Summary ---
Author Organization [facility] Address 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 Gender Identity Not on file Sexual Orientation Not on file documented as of this encounter Plan of Treatment Not on file documented as of this encounter Procedures Procedure Name Priority Date/Time Associated Diagnosis Comments XR WRIST 3+ VW LEFT Routine 10/20/2008 1 0:27 AM PULLEY MAN documented in this encounter Results * XR WRIST 3+ VW LEFT (10/20/2008 10:27 AM PULLEY MAN) Anatomical Region Laterality Modality Wrist / Hand Other 10/20/2008 10:2 7 AM PULLEY MAN Narrative 10/23/2008 9:42 PM PULLEY MAN [facility] [address] [place], [place] [address] Admit Date: 10/20/2008 ASHLEE FREDERICK Sex: F Admit Prov: JANES PARISH Date: 1965 Primary Care Prov: CMRN: [id number] Room: [facility] SSN: [id number] IMAGING SERVICES Ordering Prov: JANES PARISH Accession Number: [id number] Interpretation This procedure was performed at the request of the orthopedic physician. Please see the orthopedic physician s report for details, which can be found in the patient s medical record. Dictated by: RADIOLOGY, DEPARTMENT O Electronically signed by: RADIOLOGY, DEPARTMENT 10/23/2008 21:41 Transcribed: 10/22/2008 21:04 AMK Procedure Note Radiology, Radiologist - 10/23/2008 [facility] [address], [place] [address] Admit Date: 10/20/2008 ASHLEE FREDERICK Sex: F Admit Prov: JANES PARISH Date: 1965 Primary Care Prov: CMRN: [id number] Room: [facility] SSN: [id number] IMAGING SERVICES Ordering Prov: JANES PARISH Interpretation [...]
--- OUTSIDE RECORDS SUMMARY | 2025-01-25 03:03 | XMS_ITS | Encounter Summary ---
Author Organization [facility] Address 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 History: Followup [...] on 04/01/2008 2:47:31 PM by MARY JO LOIVEIRA Dictated by: MARY JO OLIVEIRA 04/01/2008 12:44 Electronically signed by: MARY JO OLIVEIRA 04/01/2008 14:47 Transcribed: 04/01/2008 13:20 Procedure Note Mary Jo Oliveira - 04/01/2008 [facility] [address] [place], [place] [address] Admit Date: 04/01/2008 ASHLEE FREDERICK Sex: F Admit Prov: CLIFFORD ALVES Beata Date: 1965 Primary Care Prov: CMRN: [id number] Room: [facility]: [id number] IMAGING SERVICES Ordering Prov: N/A Interpretation RIGHT [...]
--- OUTSIDE RECORDS SUMMARY | 2025-01-25 03:03 | XMS_ITS | Encounter Summary ---
Author Organization [facility] Address 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 Gender Identity Not on file Sexual Orientation [...] PM CDT Narrative 03/04/2008 4:08 PM CDT [address] [address] Admit Date: 03/04/2008 ASHLEE FREDERICK Sex: F Admit Prov: CLIFFORD ALVES Date: 1965 Primary Care Prov: PCP, UNKNOWN CMRN: [id number] Room: [facility] N: [id number] IMAGING SERVICES Ordering Prov: N/A Accession Number: [id number] Interpretation RIGHT FINGERS 3 VIEWS, 03/04/2008 Clinical [...] Procedure Note Shelly Gardiner MD - 03/04/2008 [address] [place], [place] [address] Admit Date: 03/04/2008 ASHLEE FREDERICK Sex: F Admit Prov: CLIFFORD ALVES Date: 1965 Primary Care Prov: PCP, UNKNOWN CMRN: [id number] [facility] [id number] IM[facility] Ordering Prov: N/A Interpretation RIGHT [...]
--- OUTSIDE RECORDS SUMMARY | 2025-01-25 03:03 | XMS_ITS | Clinical Summary ---
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
--- OUTSIDE RECORDS SUMMARY | 2025-01-25 03:03 | XMS_ITS | Encounter Summary ---
Author Organization [facility] Address 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 Please see the orthopedic physician s report for details, which can be found in the patient s medical record. _ Dictated by: RADIOLOGY, DEPARTMENT O Electronically signed by: RADIOLOGY, DEPARTMENT 07/04/2008 13:56 Transcribed: 07/04/2008 13:52 AMK Procedure Note Radiology, Radiologist - 07/04/2008 [facility] [address] [place] [place], [place] [address] Admit Date: 06/28/2008 ASHLEE FREDERICK Sex: F Admit Prov: JANES PARISH Date: 1965 Primary Care Prov: CMRN: [id number] Room: [facility] SSN: [id number] IMAGING SERVICES Ordering Prov: JANES PARISH Interpretation [...]
--- OUTSIDE RECORDS SUMMARY | 2025-01-25 03:03 | XMS_ITS | Encounter Summary ---
Author Organization [facility] Address [address] 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
--- OUTSIDE RECORDS SUMMARY | 2025-01-25 03:03 | XMS_ITS | Encounter Summary ---
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 5.16 mg/dL [facility] Blood specimen (specimen) 02/15/2008 5:26 AM CDT 02/15/2008 5:26 AM CDT Nayeli Alves MD CHEMISTRY ORDERABLES Final Re sult Performing Organization Address [facility] de Phone Number [facility] CLIA# [id number] [address] [place] [address] * PHOSPHORUS (02/15/2008 5:26 AM CDT) PHOSPHORUS 3.8 2.5 - 4.5 mg/dL [facility] Blood specimen (specimen) 02/15/2008 5:26 AM CDT 02/15/2008 5:26 AM CDT Nayeli Alves MD CHEMISTRY ORDERABLES Final Re sult Performing Organization Address [facility] de Phone Number [facility] CLIA# [id number] [address] [place] [address] * MAGNESIUM LEVEL (02/15/2008 5:26 AM CDT) MAGNESIUM 2.2 1.5 - 2.5 mg/dL [facility] Blood specimen (specimen) 02/15/2008 5:26 AM CDT 02/15/2008 5:26 AM CDT Nayeli Alves MD CHEMISTRY ORDERABLES Final Re sult Performing Organization Address [facility] de Phone Number [facility] CLIA# [id number] [address] [place] [address] * (ABNORMAL) COMPREHENSIVE METABOLIC PANEL (02/15/2008 5:26 AM CDT) CHLORIDE 98 96 - 108 mmol/L [facility] ALBUMIN 1.6(L) 3.4 - 4.8 g/dL [facility] CREATININE 0.61 0.51 - 0.95 mg/dL [facility] SODIUM 132(L) 135 - 145 mmol/L [facility] ALT 15 0 - 31 U/L [facility] ALKALINE PHOSPHATASE 77 35 - 104 U/L [facility] BILIRUBIN TOTAL 0.3 0.2 - 1.0 mg/dL [facility] CO2 27 22 - 30 mmol/L [facility] TOTAL PROTEIN 4.3(L) 6.3 - 8.6 g/dL [facility] POTASSIUM 4.0 3.5 - 4.9 mmol/L [facility] GLUCOSE 101(H) 65 - 99 mg/dL [facility] AST 19 12 - 32 U/L [facility] BUN 9 6 - 20 mg/dL [facility] CALCIUM 7.3(L) 8.4 - 10.2 mg/dL [facility] GFR, >60 >=60 mL/min/1. 7 sq meter [facility] GFR >60 >=60 mL/min/1. 7 sq meter [facility] Comment: Estimated GFR rate interpretative information for both Americans and non- Americans is available on the [facility] Intranet at: [email or web address] Select: Lab Policies and Procedures Select: Reference Ranges - GFR Blood specimen (specimen) 02/15/2008 5:26 AM CDT 02/15/2008 5:26 AM CDT us Nayeli Alves MD CHEMISTRY ORDERABLES Edited [facility] CLIA# [id number] [address] [facility] [address] [place] [address] * (ABNORMAL) CBC WITH DIFFERENTIAL (02/15/2008 5:26 AM CDT) WBC 6.6 4.0 - 9.8 K/uL [facility] MCH 28.1 27.2 - 32.6 pg [facility] MPV 9.0(L) 9.3 - 12.4 fL [facility] HEMATOCRIT 30.4(L) 35.5 - 44.0 % [facility] RDW-STDEV 44.6 37.1 - 48.7 fL [facility] RBC 3.45(L) 3.90 - 4.90 M/uL [facility] MCHC 31.9 31.5 - 35.5 % [facility] MCV 88.1 82.0 - 99.0 fL [facility] PLATELETS 254 140 - 350 K/uL [facility] HEMOGLOBIN 9.7(L) 11.8 - 14.8 g/dL [facility] RDW 14.1 11.5 - 14.5 % [facility] POIKILOCYTES Slight [facility] EOSINOPHIL ABSOLUTE 0.07 0.00 - 0.70 K/uL [facility] MONOCYTES 4 3 - 13 % [facility] PLATELET EST. Consistent w/ count Normal [facility] LYMPHOCYTE ABSOLUTE 1.45 0.70 - 4.50 K/uL [facility] BANDS 10(H) 0 - 5 % [facility] POLYCHROMASIA Slight [facility] METAMYELOCYTE 2(H) <=0 % [facility] BASOPHILS ABSOLUTE 0.00 0.00 - 0.20 K/uL [facility] ANISOCYTOSIS Slight [facility] EOSINOPHILS 1 0 - 7 % [facility] MONOCYTE ABSOLUTE 0.26 0.10 - 1.30 K/uL [facility] ATYPICAL LYMPHOCYTE 1 0 - 5 % [facility] LYMPHOCYTES 21 16 - 45 % [facility] REVIEWED ON SMEAR Plt OK by Smear Rev. [facility] NEUTROPHIL ABSOLUTE 4.69 1.90 - 7.00 K/uL [facility] NEUTROPHILS, SEG 61 45 - 70 % [facility] BASOPHILS 0 0 - 2 % [facility] Blood specimen (specimen) 02/15/2008 5:26 AM CDT 02/15/2008 5:26 AM CDT us Nayeli Alves MD HEMATOLOGY ORDERABLES Edited [facility] CLIA# [id number] [address] [place] [address] * XR WRIST 2 VW LEFT (02/14/2008 4:21 PM CDT) Anatomical Region Laterality Modality Wrist / Hand Other 02/14/2008 4:21 PM CDT Narrative 02/14/2008 5:55 PM CDT [facility] [address] [place], [place] [address] Admit Date: 02/08/2008 [facility] Sex: F Admit Prov: NAYELI ALVES Date: 1965 Primary Care Prov: PCP, UNKNOWN CMRN: [id number] Room: [place] [address] SSN: [id number] IMAGING SERVICES Ordering Prov: N/A Accession Number: [id number] Interpretation LEFT WRIST AP AND LATERAL VIEWS, [...] AMK Procedure Note Shraddha Mckeon - 02/14/2008 [facility] [address] [facility] [address] [address] [place], [place] [address] Admit Date: 02/08/2008 [facility]AD[facility] FREDERICK Sex: F Admit Prov: NAYELI ALVES Date: 1965 Primary Care Prov: PCP, UNKNOWN CMRN: [id number] Room: [place] [address] SSN: [id number] IMAGING SERVICES Ordering Prov: N/A Interpretation LEFT [...] CALCIUM IONIZED 4.36(L) 4.76 - 5.16 mg/dL [facility] Blood specimen (specimen) 02/14/2008 3:32 AM CDT 02/14/2008 3:32 AM CDT Nayeli Alves MD CHEMISTRY ORDERABLES Final Re sult [facility] CLIA# [id number] [address] [place] [address] * (ABNORMAL) PHOSPHORUS (02/14/2008 3:32 AM CDT) PHOSPHORUS 4.6(H) 2.5 - 4.5 mg/dL [facility] Blood specimen (specimen) 02/14/2008 3:32 AM CDT 02/14/2008 3:32 AM CDT Nayeli Alves MD CHEMISTRY ORDERABLES Final Re sult Performing Organization Address [facility] de Phone Number [facility] CLIA# [id number] [address] [place] [address] * MAGNESIUM LEVEL (02/14/2008 3:32 AM CDT) [facility] MAGNESIUM 2.3 1.5 - 2.5 mg/dL [facility] Blood specimen (specimen) 02/14/2008 3:32 AM CDT 02/14/2008 3:32 AM CDT Nayeli Alves MD CHEMISTRY ORDERABLES Final Re sult Performing Organization Address [facility] de Phone Number [facility] CLIA# [id number] [address] [place] [address] * (ABNORMAL) BASIC METABOLIC PANEL (02/14/2008 3:32 AM CDT) CHLORIDE 101 96 - 108 mmol/L [facility] GLUCOSE 114(H) 65 - 99 mg/dL [facility] SODIUM 134(L) 135 - 145 mmol/L [facility] CALCIUM 7.3(L) 8.4 - 10.2 mg/dL [facility] CO2 27 22 - 30 mmol/L [facility] CREATININE 0.70 0.51 - 0.95 mg/dL [facility] POTASSIUM 4.2 3.5 - 4.9 mmol/L [facility] BUN 9 6 - 20 mg/dL [facility] GFR, >60 >=60 mL/min/1. 7 sq meter [facility] GFR >60 >=60 mL/min/1. 7 sq meter [facility] Comment: Estimated GFR rate interpretative information for both Americans and non- Americans is available on the [facility] Intranet at: [email or web address] Select: Lab Policies and Procedures Select: Reference Ranges - GFR Blood specimen (specimen) 02/14/2008 3:32 AM CDT 02/14/2008 3:32 AM CDT Nayeli Alves MD CHEMISTRY ORDERABLES Edited [facility] CLIA# [id number] [address] [facility] [place] [address] * (ABNORMAL) CBC WITH DIFFERENTIAL (02/14/2008 3:32 AM CDT) MCHC 31.8 31.5 - 35.5 % [facility] MCV 87.7 82.0 - 99.0 fL [facility] PLATELETS 229 140 - 350 K/uL [facility] HEMOGLOBIN 10.0(L) 11.8 - 14.8 g/dL [facility] RDW 13.9 11.5 - 14.5 % [facility] WBC 6.8 4.0 - 9.8 K/uL [facility] MCH 27.9 27.2 - 32.6 pg [facility] MPV 8.9(L) 9.3 - 12.4 fL [facility] HEMATOCRIT 31.4(L) 35.5 - 44.0 % [facility] RDW-STDEV 43.9 37.1 - 48.7 fL [facility] RBC 3.58(L) 3.90 - 4.90 M/uL [facility] MONOCYTES 5 3 - 13 % [facility] REVIEWED ON SMEAR Plt OK by Smear Rev. [facility] PLATELET EST. Consistent w/ count Normal [facility] LYMPHOCYTE ABSOLUTE 1.43 0.70 - 4.50 K/uL [facility] BANDS 17(H) 0 - 5 % [facility] POLYCHROMASIA Slight [facility] METAMYELOCYTE 2(H) <=0 % [facility] BASOPHILS ABSOLUTE 0.00 0.00 - 0.20 K/uL [facility] ANISOCYTOSIS Slight [facility] EOSINOPHILS 3 0 - 7 % [facility] MONOCYTE ABSOLUTE 0.34 0.10 - 1.30 K/uL [facility] ATYPICAL LYMPHOCYTE 2 0 - 5 % [facility] LYMPHOCYTES 19 16 - 45 % [facility] TOXIC GRANULATION Slight [facility] NEUTROPHIL ABSOLUTE 4.69 1.90 - 7.00 K/uL [facility] NEUTROPHILS, SEG 52 45 - 70 % [facility] BASOPHILS 0 0 - 2 % [facility] POIKILOCYTES Slight [facility] EOSINOPHIL ABSOLUTE 0.20 0.00 - 0.70 K/uL [facility] Blood specimen (specimen) 02/14/2008 3:32 AM CDT 02/14/2008 3:32 AM CDT us Nayeli Alves MD HEMATOLOGY ORDERABLES Edited Performing Organization Address [facility] Co de Phone Number [facility] CLIA# [id number] [address] [place] [address] * (ABNORMAL) CALCIUM IONIZED (02/13/2008 4:00 AM CDT) CALCIUM IONIZED 4.26(L) 4.76 - 5.16 mg/dL [facility] Blood specimen (specimen) 02/13/2008 4:00 AM CDT 02/13/2008 4:56 AM CDT Nayeli Alves MD CHEMISTRY ORDERABLES Final Re sult Performing Organization Address [facility] de Phone Number [facility] CLIA# [id number] [address] [place] [address] * PHOSPHORUS (02/13/2008 4:00 AM CDT) PHOSPHORUS 4.2 2.5 - 4.5 mg/dL [facility] Blood specimen (specimen) 02/13/2008 4:00 AM CDT 02/13/2008 4:55 AM CDT Nayeli Alves MD CHEMISTRY ORDERABLES Final Re sult Performing Organization Address [facility] de Phone Number [facility] CLIA# [id number] [address] [place] [address] * MAGNESIUM LEVEL (02/13/2008 4:00 AM CDT) MAGNESIUM 2.2 1.5 - 2.5 mg/dL [facility] Blood specimen (specimen) 02/13/2008 4:00 AM CDT 02/13/2008 4:55 AM CDT Nayeli Alves MD CHEMISTRY ORDERABLES Final Re sult Performing Organization Address [facility]/ZIP Co de Phone Number [facility] CLIA# [id number] [address] [place] [address] * (ABNORMAL) BASIC METABOLIC PANEL (02/13/2008 4:00 AM CDT) GLUCOSE 116(H) 65 - 99 mg/dL [facility] SODIUM 131(L) 135 - 145 mmol/L [facility] CALCIUM 6.9(L) 8.4 - 10.2 mg/dL [facility] CO2 25 22 - 30 mmol/L [facility] CREATININE 0.68 0.51 - 0.95 mg/dL [facility] POTASSIUM 4.4 3.5 - 4.9 mmol/L [facility] BUN 9 6 - 20 mg/dL [facility] CHLORIDE 100 96 - 108 mmol/L [facility] GFR, >60 >=60 mL/min/1. 7 sq meter [facility] GFR >60 >=60 mL/min/1. 7 sq meter [facility] Comment: Estimated GFR rate interpretative information for both Americans and non- Americans is available on the [facility] Intranet at: [email or web address] Select: Lab Policies and Procedures Select: Reference Ranges - GFR Blood specimen (specimen) 02/13/2008 4:00 AM CDT 02/13/2008 4:55 AM CDT Nayeli Alves MD CHEMISTRY ORDERABLES Edited [facility] CLIA# [id number] [address] [place] [address] * (ABNORMAL) CBC WITH DIFFERENTIAL (02/13/2008 4:00 AM CDT) NRBC 0 <=0 /100 WBC [facility] HEMOGLOBIN 10.0(L) 11.8 - 14.8 g/dL [facility] RDW 14.0 11.5 - 14.5 % [facility] WBC 6.5 4.0 - 9.8 K/uL [facility] MCH 27.9 27.2 - 32.6 pg [facility] MPV 9.0(L) 9.3 - 12.4 fL [facility] HEMATOCRIT 31.0(L) 35.5 - 44.0 % [facility] RDW-STDEV 43.3 37.1 - 48.7 fL [facility] RBC 3.59(L) 3.90 - 4.90 M/uL [facility] MCHC 32.3 31.5 - 35.5 % [facility] PLATELETS 227 140 - 350 K/uL [facility] MCV 86.4 82.0 - 99.0 fL [facility] MONOCYTE ABSOLUTE 0.39 0.10 - 1.30 K/uL [facility] LYMPHOCYTES 19 16 - 45 % [facility] ANISOCYTOSIS Slight [facility] NEUTROPHIL ABSOLUTE 4.75 1.90 - 7.00 K/uL [facility] NEUTROPHILS, SEG 65 45 - 70 % [facility] BASOPHILS 0 0 - 2 % [facility] EOSINOPHIL ABSOLUTE 0.13 0.00 - 0.70 K/uL [facility] MONOCYTES 6 3 - 13 % [facility] POIKILOCYTES Slight [facility] LYMPHOCYTE ABSOLUTE 1.24 0.70 - 4.50 K/uL [facility] PLATELET EST. Consistent w/ count Normal [facility] BANDS 8(H) 0 - 5 % [facility] BASOPHILS ABSOLUTE 0.00 0.00 - 0.20 K/uL [facility] EOSINOPHILS 2 0 - 7 % [facility] REVIEWED ON SMEAR Plt OK by Smear Rev. [facility] Blood specimen (specimen) 02/13/2008 4:00 AM CDT 02/13/2008 4:55 AM CDT Nayeli Alves MD HEMATOLOGY ORDERABLES Edited Performing Organization Address City/[facility]/ZIP Co de Phone Number [facility] CLIA# [id number] [address], [place] [address] * PHOSPHORUS (02/12/2008 4:00 AM CDT) PHOSPHORUS 3.4 2.5 - 4.5 mg/dL [facility] Blood specimen (specimen) 02/12/2008 4:00 AM CDT 02/12/2008 6:17 AM CDT Nolberto Stovall MD CHEMISTRY ORDERABLES Final R esult Performing Organization Address City/[facility] Co de Phone Number [facility] CLIA# [id number] [address] [place] [address] * MAGNESIUM LEVEL (02/12/2008 4:00 AM CDT) MAGNESIUM 2.1 1.5 - 2.5 mg/dL [facility] Blood specimen (specimen) 02/12/2008 4:00 AM CDT 02/12/2008 6:17 AM CDT Nolberto Stovall MD CHEMISTRY ORDERABLES Final R esult Performing Organization Address City/[facility]/ZIP Co de Phone Number [facility] CLIA# [id number] [address] [place] [address] * (ABNORMAL) BASIC METABOLIC PANEL (02/12/2008 4:00 AM CDT) CALCIUM 7.0(L) 8.4 - 10.2 mg/dL [facility] CO2 27 22 - 30 mmol/L [facility] CREATININE 0.66 0.51 - 0.95 mg/dL [facility] POTASSIUM 4.1 3.5 - 4.9 mmol/L [facility] BUN 10 6 - 20 mg/dL [facility] CHLORIDE 102 96 - 108 mmol/L [facility] GLUCOSE 116(H) 65 - 99 mg/dL [facility] SODIUM 134(L) 135 - 145 mmol/L [facility] GFR, >60 >=60 mL/min/1. 7 sq meter [facility] GFR >60 >=60 mL/min/1. 7 sq meter [facility] Comment: Estimated GFR rate interpretative information for both Americans and non- Americans is available on the [facility] Intranet at: [email or web address] Select: Lab Policies and Procedures Select: Reference Ranges - GFR Blood specimen (specimen) 02/12/2008 4:00 AM CDT 02/12/2008 6:17 AM CDT us Nolberto Stovall MD CHEMISTRY ORDERABLES Edited [facility] CLIA# [id number] [address] [place] [address] * (ABNORMAL) CBC WITH DIFFERENTIAL (02/12/2008 4:00 AM CDT) RBC 2.95(L) 3.90 - 4.90 M/uL [facility] MCHC 32.4 31.5 - 35.5 % [facility] MCV 85.8 82.0 - 99.0 fL [facility] PLATELETS 226 140 - 350 K/uL [facility] HEMOGLOBIN 8.2(L) 11.8 - 14.8 g/dL [facility] RDW 14.0 11.5 - 14.5 % [facility] WBC 8.0 4.0 - 9.8 K/uL [facility] MCH 27.8 27.2 - 32.6 pg [facility] MPV 8.9(L) 9.3 - 12.4 fL [facility] HEMATOCRIT 25.3(L) 35.5 - 44.0 % [facility] RDW-STDEV 43.1 37.1 - 48.7 fL [facility] BASOPHILS 0 0 - 2 % [facility] EOSINOPHIL ABSOLUTE 0.08 0.00 - 0.70 K/uL [facility] POLYCHROMASIA Slight [facility] MONOCYTES 4 3 - 13 % [facility] LYMPHOCYTE ABSOLUTE 1.44 0.70 - 4.50 K/uL [facility] PLATELET EST. Consistent w/ count Normal [facility] BANDS 19(H) 0 - 5 % [facility] BASOPHILS ABSOLUTE 0.00 0.00 - 0.20 K/uL [facility] EOSINOPHILS 1 0 - 7 % [facility] MONOCYTE ABSOLUTE 0.32 0.10 - 1.30 K/uL [facility] LYMPHOCYTES 18 16 - 45 % [facility] ANISOCYTOSIS Slight [facility] NEUTROPHIL ABSOLUTE 6.16 1.90 - 7.00 K/uL [facility] NEUTROPHILS, SEG 58 45 - 70 % [facility] Blood specimen (specimen) 02/12/2008 4:00 AM CDT 02/12/2008 6:17 AM CDT Nolberto Stovall MD HEMATOLOGY ORDERABLES Edited Performing Organization Address [facility] de Phone Number [facility] CLIA# [id number] [address] [place] [address] * (ABNORMAL) CALCIUM IONIZED (02/12/2008 4:00 AM CDT) CALCIUM IONIZED 4.32(L) 4.76 - 5.16 mg/dL [facility] Blood specimen (specimen) 02/12/2008 4:00 AM CDT 02/12/2008 6:17 AM CDT Nolberto Stovall MD CHEMISTRY ORDERABLES Final R esult Performing Organization Address [facility] de Phone Number [facility] CLIA# [id number] [address] [place] [address] * URINE CULTURE (02/11/2008 9:40 AM CDT) PRELIMINARY REPORT Pending [facility] FINAL REPORT >100,000 colonies/mL presumptive Jahaira albicans [facility] URINARY BLADDER STRUCTURE / Unknown 02/11/2008 9:40 AM CDT 02/11/2008 11:58 AM CDT Nolberto Stovall MD MICROBIOLOGY - GENERAL ORDER ZAINAB Final Result Performing Organization Address [facility] de Phone Number [facility] [address] [place] [address] * HCG QUALITATIVE, URINE (02/11/2008 5:57 AM CDT) SPECIFIC GRAVITY UA 1.020 1.001 - 1.035 [facility] HCG QUAL URINE Negative Negative [facility] Urine specimen (specimen) 02/11/2008 5:57 AM CDT 02/11/2008 6:01 AM CDT Nayeli Alves MD URINE ORDERABLES Final Result [facility] [address] [place] [address] * (ABNORMAL) CBC WITH DIFFERENTIAL (02/11/2008 3:20 AM CDT) WBC 6.1 4.0 - 9.8 K/uL [facility] MCH 28.4 27.2 - 32.6 pg [facility] MPV 9.0(L) 9.3 - 12.4 fL [facility] HEMATOCRIT 30.2(L) 35.5 - 44.0 % [facility] RDW-STDEV 43.1 37.1 - 48.7 fL [facility] RBC 3.56(L) 3.90 - 4.90 M/uL [facility] MCHC 33.4 31.5 - 35.5 % [facility] MCV 84.8 82.0 - 99.0 fL [facility] PLATELETS 242 140 - 350 K/uL [facility] HEMOGLOBIN 10.1(L) 11.8 - 14.8 g/dL [facility] RDW 14.1 11.5 - 14.5 % [facility] NEUTROPHILS, SEG 54 45 - 70 % [facility] BASOPHILS 0 0 - 2 % [facility] POIKILOCYTES Slight [facility] EOSINOPHIL ABSOLUTE 0.18 0.00 - 0.70 K/uL [facility] MONOCYTES 2(L) 3 - 13 % [facility] PLATELET EST. Consistent w/ count Normal [facility] LYMPHOCYTE ABSOLUTE 1.83 0.70 - 4.50 K/uL [facility] BANDS 10(H) 0 - 5 % [facility] POLYCHROMASIA Slight [facility] METAMYELOCYTE 1(H) <=0 % [facility] BASOPHILS ABSOLUTE 0.00 0.00 - 0.20 K/uL [facility] ANISOCYTOSIS Slight [facility] EOSINOPHILS 3 0 - 7 % [facility] MONOCYTE ABSOLUTE 0.12 0.10 - 1.30 K/uL [facility] ATYPICAL LYMPHOCYTE 1 0 - 5 % [facility] LYMPHOCYTES 29 16 - 45 % [facility] OVALOCYTES Slight [facility] NEUTROPHIL ABSOLUTE 3.90 1.90 - 7.00 K/uL [facility] Blood specimen (specimen) 02/11/2008 3:20 AM CDT 02/11/2008 3:28 AM CDT Nolberto Stovall MD HEMATOLOGY ORDERABLES Edited Performing Organization Address City/[facility]/ZIP Co de Phone Number [facility] [address] [place] [address] * PHOSPHORUS (02/11/2008 3:20 AM CDT) PHOSPHORUS 3.8 2.5 - 4.5 mg/dL [facility] Blood specimen (specimen) 02/11/2008 3:20 AM CDT 02/11/2008 3:28 AM CDT Nolberto Stovall MD CHEMISTRY ORDERABLES Final R esult [facility] [address] [place] [address] * MAGNESIUM LEVEL (02/11/2008 3:20 AM CDT) MAGNESIUM 2.2 1.5 - 2.5 mg/dL [facility] Blood specimen (specimen) 02/11/2008 3:20 AM CDT 02/11/2008 3:28 AM CDT Nolberto Stovall MD CHEMISTRY ORDERABLES Final R esult Performing Organization Address City/[facility]/ZIP Co de Phone Number [facility] [address] [place] [address] * (ABNORMAL) CALCIUM IONIZED (02/11/2008 3:20 AM CDT) Pathologist [facility] CALCIUM IONIZED 4.36(L) 4.76 - 5.16 mg/dL [facility] Blood specimen (specimen) 02/11/2008 3:20 AM CDT 02/11/2008 3:28 AM CDT Nolberto Stovall MD CHEMISTRY ORDERABLES Final R esult [facility] [address] [place] [address] * (ABNORMAL) BASIC METABOLIC PANEL (02/11/2008 3:20 AM CDT) BUN 10 6 - 20 mg/dL [facility] CHLORIDE 103 96 - 108 mmol/L [facility] GLUCOSE 115(H) 65 - 99 mg/dL [facility] SODIUM 138 135 - 145 mmol/L [facility] CALCIUM 7.4(L) 8.4 - 10.2 mg/dL [facility] CO2 27 22 - 30 mmol/L [facility] CREATININE 0.65 0.51 - 0.95 mg/dL [facility] POTASSIUM 3.9 3.5 - 4.9 mmol/L [facility] GFR, >60 >=60 mL/min/1. 7 sq meter [facility] GFR >60 >=60 mL/min/1. 7 sq meter [facility] Comment: Estimated GFR rate interpretative information for both Americans and non- Americans is available on the [facility] Intranet at: [email or web address] Select: Lab Policies and Procedures Select: Reference Ranges - GFR Blood specimen (specimen) 02/11/2008 3:20 AM CDT 02/11/2008 3:28 AM CDT Nolberto Stovall MD CHEMISTRY ORDERABLES Edited [facility] [address] [place] [address] * XR CHEST PA OR AP (02/10/2008 9:20 AM CDT) Anatomical Region Laterality Modality Chest Other 02/10/2008 9:20 AM CDT Narrative 02/10/2008 10:01 AM CDT [place] [address] [place], [place] [address] Admit Date: 02/08/2008 GLADYS FREDERICK Sex: F Admit Prov: NAYELI ALVES Date: 1965 Primary Care Prov: PCP, UNKNOWN CMRN: [id number] Room: [place] [address] SSN: [id number] IMAGING SERVICES Ordering Prov: N/A Accession Number: [id number] Interpretation PORTABLE CHEST, 02/10/2008 AT 9:20 A.M. [...] SMM Procedure Note Provider, Historical - 02/10/2008 [facility] [address], [place] [address] Admit Date: 02/08/2008 CHACE GLADYS D Sex: F Admit Prov: NAYELI ALVES Date: 1965 Primary Care Prov: PCP, UNKNOWN CMRN: [id number] Room: [place] [address] SSN: [id number] IMAGING SERVICES Ordering Prov: N/A Interpretation PORTABLE [...] CALCIUM IONIZED 4.05(L) 4.76 - 5.16 mg/dL [facility] Blood specimen (specimen) 02/10/2008 4:00 AM CDT 02/10/2008 5:06 AM CDT Nayeli Alves MD CHEMISTRY ORDERABLES Final Re sult Performing Organization Address [facility] Co de Phone Number [facility] [address] [place] [address] * PHOSPHORUS (02/10/2008 4:00 AM CDT) PHOSPHORUS 4.3 2.5 - 4.5 mg/dL [facility] Blood specimen (specimen) 02/10/2008 4:00 AM CDT 02/10/2008 5:06 AM CDT Nayeli Alves MD CHEMISTRY ORDERABLES Final Re sult Performing Organization Address [facility] Co de Phone Number [facility] [address] [place] [address] * MAGNESIUM LEVEL (02/10/2008 4:00 AM CDT) MAGNESIUM 2.1 1.5 - 2.5 mg/dL [facility] Blood specimen (specimen) 02/10/2008 4:00 AM CDT 02/10/2008 5:06 AM CDT Nayeli Alves MD CHEMISTRY ORDERABLES Final Re sult Performing Organization Address [facility] Co de Phone Number [facility] [address] [place] [address] * (ABNORMAL) BASIC METABOLIC PANEL (02/10/2008 4:00 AM CDT) CHLORIDE 104 96 - 108 mmol/L [facility] GLUCOSE 108(H) 65 - 99 mg/dL [facility] SODIUM 136 135 - 145 mmol/L [facility] CALCIUM 7.3(L) 8.4 - 10.2 mg/dL [facility] CO2 26 22 - 30 mmol/L [facility] CREATININE 0.64 0.51 - 0.95 mg/dL [facility] POTASSIUM 3.8 3.5 - 4.9 mmol/L [facility] BUN 10 6 - 20 mg/dL [facility] GFR, >60 >=60 mL/min/1. 7 sq meter [facility] GFR >60 >=60 mL/min/1. 7 sq meter [facility] Comment: Estimated GFR rate interpretative information for both Americans and non- Americans is available on the [facility] Intranet at: [email or web address] Select: Lab Policies and Procedures Select: Reference Ranges - GFR Blood specimen (specimen) 02/10/2008 4:00 AM CDT 02/10/2008 5:06 AM CDT Nayeli Alves MD CHEMISTRY ORDERABLES Edited [facility] [address] [place] [address] * (ABNORMAL) CBC WITH DIFFERENTIAL (02/10/2008 4:00 AM CDT) MCV 83.5 82.0 - 99.0 fL [facility] PLATELETS 236 140 - 350 K/uL [facility] HEMOGLOBIN 9.9(L) 11.8 - 14.8 g/dL [facility] RDW 13.9 11.5 - 14.5 % [facility] WBC 5.1 4.0 - 9.8 K/uL [facility] MCH 27.7 27.2 - 32.6 pg [facility] MPV 9.2(L) 9.3 - 12.4 fL [facility] HEMATOCRIT 29.9(L) 35.5 - 44.0 % [facility] RDW-STDEV 42.1 37.1 - 48.7 fL [facility] RBC 3.58(L) 3.90 - 4.90 M/uL [facility] MCHC 33.1 31.5 - 35.5 % [facility] BASOPHILS ABSOLUTE 0.00 0.00 - 0.20 K/uL [facility] POIKILOCYTES Slight [facility] EOSINOPHILS 1 0 - 7 % [facility] ACANTHOCYTES Slight [facility] MONOCYTE ABSOLUTE 0.10 0.10 - 1.30 K/uL [facility] PLATELET EST. Consistent w/ count Normal [facility] LYMPHOCYTES 39 16 - 45 % [facility] POLYCHROMASIA Slight [facility] NEUTROPHIL ABSOLUTE 2.91 1.90 - 7.00 K/uL [facility] NEUTROPHILS, SEG 41(L) 45 - 70 % [facility] BASOPHILS 0 0 - 2 % [facility] REVIEWED ON SMEAR WBC & Plt Reviewed [facility] MICROCYTES Slight [facility] EOSINOPHIL ABSOLUTE 0.05 0.00 - 0.70 K/uL [facility] MONOCYTES 2(L) 3 - 13 % [facility] OVALOCYTES Slight [facility] ANISOCYTOSIS Slight [facility] LYMPHOCYTE ABSOLUTE 2.04 0.70 - 4.50 K/uL [facility] BANDS 16(H) 0 - 5 % [facility] MACROCYTES Slight [facility] ATYPICAL LYMPHOCYTE 1 0 - 5 % [facility] Blood specimen (specimen) 02/10/2008 4:00 AM CDT 02/10/2008 5:06 AM CDT us Nayeli Alves MD HEMATOLOGY ORDERABLES Edited [facility] [address] [place] [address] * XR FOOT 3+ VW LEFT (02/09/2008 10:40 PM CDT) Anatomical Region Laterality Modality Ankle / Foot Other 02/09/2008 10:4 0 PM CDT Narrative 02/09/2008 11:29 PM CDT [facility] [address] [place], [place] [address] Admit Date: 02/08/2008 GLADYS FREDERICK Sex: F Admit Prov: NAYELI ALVES Date: 1965 Primary Care Prov: PCP, UNKNOWN CMRN: [id number] Room: [place] [address] SSN: [id number] IMAGING SERVICES Ordering Prov: N/A Accession Number: [id number] Interpretation Left foot 3 views 02/09/2008 History: [...] AMK Procedure Note Omer Paniagua - 02/09/2008 [facility] [address] [place], [place] [address] Admit Date: 02/08/2008 VINANDERSGLADYS Sex: F Admit Prov: NAYELI ALVES Date: 1965 Primary Care Prov: PCP, UNKNOWN CMRN: [id number] Room: [place] [address] SSN: [id number] IMAGING SERVICES Ordering Prov: N/A Interpretation Left [...] PM CDT Narrative 02/09/2008 7:17 PM CDT [facility] [address] [place], [place] [address] Admit Date: 02/08/2008 GLADYS FREDERICK Sex: F Admit Prov: NAYELI ALVES Date: 1965 Primary Care Prov: PCP, UNKNOWN CMRN: [id number] Room: [place] [address] SSN: [id number] IMAGING SERVICES Ordering Prov: N/A Accession Number: [id number] Interpretation Left knee 2 views. 02/09/2008 History: [...] AMK Procedure Note Omer Paniagua - 02/09/2008 [facility] [address], [place] [address] Admit Date: 02/08/2008 GLADYS FREDERICK Sex: F Admit Prov: NAYELI ALVES Date: 1965 Primary Care Prov: PCP, UNKNOWN CMRN: [id number] Room: [place] [address] SSN: [id number] IMAGING SERVICES Ordering Prov: N/A Interpretation Left [...] PM CDT Narrative 02/09/2008 7:17 PM CDT [facility] [address], [place] [address] Admit Date: 02/08/2008 LACGLADYS CARVAJAL Sex: F Admit Prov: NAYELI ALVES Date: 1965 Primary Care Prov: PCP, UNKNOWN CMRN: [id number] Room: [place] [address] SSN: [id number] IMAGING SERVICES Ordering Prov: N/A Accession Number: [id number] Interpretation Right foot 3 views. 02/09/2008 History: [...] AMK Procedure Note Omer Paniagua - 02/09/2008 [facility] [address] [place], [place] [address] Admit Date: 02/08/2008 GLADYS FREDERICK Sex: F Admit Prov: NAYELI ALVES Date: 1965 Primary Care Prov: PCP, UNKNOWN CMRN: [id number] Room: [place] [address] SSN: [id number] IMAGING SERVICES Ordering Prov: N/A Interpretation Right [...] PM CDT Narrative 02/10/2008 3:56 PM CDT [facility] [address] [place], [place] [address] Admit Date: 02/08/2008 GLADYS FREDERICK Sex: F Admit Prov: NAYELI ALVES Date: 1965 Primary Care Prov: PCP, UNKNOWN CMRN: [id number] [address]: [id number] IMAGING SERVICES Ordering Prov: N/A Accession Number: [id number] Interpretation Three portable views of the right [...] Procedure Note Dawn Mosher MD - 02/10/2008 [facility] [address] [place], [place] [address] Admit Date: 02/08/2008 GLADYS FREDERICK Sex: F Admit Prov: NAYELI ALVES Date: 1965 Primary Care Prov: PCP, UNKNOWN CMRN: [id number] Room: [place] [address] SSN: [id number] IMAGING SERVICES Ordering Prov: N/A Interpretation Three [...] PM CDT Narrative 02/10/2008 7:13 AM CDT [place] [place], [place] [address] Admit Date: 02/08/2008 GLADYS FREDERICK Sex: F Admit Prov: NAYELI ALVES Date: 1965 Primary Care Prov: PCP, UNKNOWN CMRN: [id number] Room: [place] [address] SSN: [id number] IMAGING SERVICES Ordering Prov: N/A Accession Number: [id number] Interpretation Portable chest 02/09/2008 1600 hours Clinical [...] AMK Procedure Note Provider, Historical - 02/10/2008 [facility] [address] [place], [place] [address] Admit Date: 02/08/2008 GLADYS FREDERICK Sex: F Admit Prov: NAYELI ALVES Date: 1965 Primary Care Prov: PCP, UNKNOWN CMRN: [id number] Room: [place] [address] SSN: [id number] IMAGING SERVICES Ordering Prov: N/A Interpretation Portable [...] CDT) SPECIMEN LIFE 3 days from drawdate [facility] HISTORY CHECK No Historical ABO/Rh [facility] ABO/RH TYPE B Positive [facility] ANTIBODY SCREEN Negative [facility] Blood specimen (specimen) 02/09/2008 12:24 PM CDT Nayeli Alves MD BLOOD BANK ORDERABLES Edited [facility] [address] [place] [address] * (ABNORMAL) PHOSPHORUS (02/09/2008 4:30 AM CDT) [facility] PHOSPHORUS 5.4(H) 2.5 - 4.5 mg/dL [facility] Blood specimen (specimen) 02/09/2008 4:30 AM CDT 02/09/2008 4:43 AM CDT Nayeli Alves MD CHEMISTRY ORDERABLES Final Re sult Performing Organization Address [facility]/ZIP Co de Phone Number [facility] [address] [place] [address] * MAGNESIUM LEVEL (02/09/2008 4:30 AM CDT) [facility] MAGNESIUM 2.0 1.5 - 2.5 mg/dL [facility] Blood specimen (specimen) 02/09/2008 4:30 AM CDT 02/09/2008 4:43 AM CDT Nayeli Alves MD CHEMISTRY ORDERABLES Final Re sult Performing Organization Address City/[facility]/ZIP Co de Phone Number [facility] [address] [place] [address] * (ABNORMAL) CBC WITH DIFFERENTIAL (02/09/2008 4:30 AM CDT) [facility] NRBC 4(H) <=0 /100 WBC [facility] WBC 3.9(L) 4.0 - 9.8 K/uL [facility] MCH 28.2 27.2 - 32.6 pg [facility] MPV 9.4 9.3 - 12.4 fL [facility] HEMATOCRIT 23.9(AA) 35.5 - 44.0 % [facility] RDW-STDEV 41.0 37.1 - 48.7 fL [facility] RBC 2.80(L) 3.90 - 4.90 M/uL [facility] MCHC 33.1 31.5 - 35.5 % [facility] PLATELETS 216 140 - 350 K/uL [facility] MCV 85.4 82.0 - 99.0 fL [facility] HEMOGLOBIN 7.9(AA) 11.8 - 14.8 g/dL [facility] Comment: Verified by repeat analysis. Results called to zen at 02/09/08 5:39 AM and read back verified. RDW 13.5 11.5 - 14.5 % [facility] EOSINOPHIL ABSOLUTE 0.08 0.00 - 0.70 K/uL [facility] MONOCYTES 3 3 - 13 % [facility] TOXIC GRANULATION Moderate [facility] ATYPICAL LYMPHOCYTE 1 0 - 5 % [facility] LYMPHOCYTE ABSOLUTE 2.30 0.70 - 4.50 K/uL [facility] BANDS 15(H) 0 - 5 % [facility] POIKILOCYTES Slight [facility] METAMYELOCYTE 4(H) <=0 % [facility] BASOPHILS ABSOLUTE 0.00 0.00 - 0.20 K/uL [facility] PLATELET EST. Consistent w/ count Normal [facility] EOSINOPHILS 2 0 - 7 % [facility] DOHLE BODIES Present [facility] MONOCYTE ABSOLUTE 0.12 0.10 - 1.30 K/uL [facility] MYELOCYTES 2(H) <=0 % [facility] LYMPHOCYTES 58(H) 16 - 45 % [facility] POLYCHROMASIA Slight [facility] NEUTROPHIL ABSOLUTE 1.17(L) 1.90 - 7.00 K/uL [facility] NEUTROPHILS, SEG 15(L) 45 - 70 % [facility] BASOPHILS 0 0 - 2 % [facility] CLUMPED PLATELETS Present [facility] ANISOCYTOSIS Slight [facility] Blood specimen (specimen) 02/09/2008 4:30 AM CDT 02/09/2008 4:43 AM CDT Nayeli Alves MD HEMATOLOGY ORDERABLES Edited Performing Organization Address City/[facility]/ZIP Co de Phone Number [facility] [address] [facility] [place] [address] * (ABNORMAL) CALCIUM IONIZED (02/09/2008 4:30 AM CDT) CALCIUM IONIZED 4.32(L) 4.76 - 5.16 mg/dL [facility] Blood specimen (specimen) 02/09/2008 4:30 AM CDT 02/09/2008 4:43 AM CDT Naylei Alves MD CHEMISTRY ORDERABLES Final Re sult Performing Organization Address City/[facility]/ZIP Co de Phone Number [facility] [address] [place] [address] * (ABNORMAL) BASIC METABOLIC PANEL (02/09/2008 4:30 AM CDT) CHLORIDE 105 96 - 108 mmol/L [facility] GLUCOSE 89 65 - 99 mg/dL [facility] SODIUM 136 135 - 145 mmol/L [facility] CALCIUM 7.0(L) 8.4 - 10.2 mg/dL [facility] CO2 24 22 - 30 mmol/L [facility] CREATININE 0.74 0.51 - 0.95 mg/dL [facility] POTASSIUM 4.1 3.5 - 4.9 mmol/L [facility] BUN 11 6 - 20 mg/dL [facility] GFR, >60 >=60 mL/min/1. 7 sq meter [facility] GFR >60 >=60 mL/min/1. 7 sq meter [facility] Comment: Estimated GFR rate interpretative information for both Americans and non- Americans is available on the [facility] Intranet at: [email or web address] Select: Lab Policies and Procedures Select: Reference Ranges - GFR Blood specimen (specimen) 02/09/2008 4:30 AM CDT 02/09/2008 4:43 AM CDT Nayeli Alves MD CHEMISTRY ORDERABLES Edited [facility] [address] [place] [address] * XR WRIST 3+ VW LEFT (02/08/2008 4:43 PM CDT) Anatomical Region Laterality Modality Wrist / Hand Other 02/08/2008 4:43 PM CDT Narrative 02/09/2008 4:08 PM CDT [facility] [address] [place], [place] [address] Admit Date: 02/08/2008 GLADYS FREDERICK Sex: F Admit Prov: NAYELI ALVES Date: 1965 Primary Care Prov: PCP, UNKNOWN CMRN: [id number] Room: [place] [address] SSN: [id number] IMAGING SERVICES Ordering Prov: N/A Accession Number: [id number] Interpretation LEFT WRIST, 3 VIEWS, 02/08/2008 History: [...] Transcribed: 02/09/2008 12:28 DKT Procedure Note Christiano hCen MD - 02/09/2008 [place] [address] [place], [place] [address] Admit Date: 02/08/2008 GLADSY FRDEERICK Sex: F Admit Prov: NAYELI ALVES Date: 1965 Primary Care Prov: PCP, UNKNOWN CMRN: [id number] Room: [place] [address] SSN: [id number] IMAGING SERVICES Ordering Prov: N/A Interpretation LEFT [...] PM CDT Narrative 02/09/2008 4:07 PM CDT [place] [address] [place], [place] [address] Admit Date: 02/08/2008 LGADYS FREDERICK Sex: F Admit Prov: NAYELI ALVES Date: 1965 Primary Care Prov: PCP, UNKNOWN CMRN: [id number] Room: [place] [address] SSN: [id number] IMAGING SERVICES Ordering Prov: N/A Accession Number: [id number] Interpretation RIGHT HAND, 3 VIEWS 02/08/08 History: [...] Procedure Note Christiano Chen MD - 02/09/2008 [facility] [address] [place], [place] [address] Admit Date: 02/08/2008 GLADYS FREDERICK Sex: F Admit Prov: NAYELI ALVES Date: 1965 Primary Care Prov: PCP, UNKNOWN CMRN: [id number] Room: [place] [address] SSN: [id number] IMAGING SERVICES Ordering Prov: N/A Interpretation RIGHT [...] PM CDT Narrative 02/09/2008 4:07 PM CDT [address] [address] Admit Date: 02/08/2008 GLADYS FREDERICK Sex: F Admit Prov: NAYELI ALVES Date: 1965 Primary Care Prov: PCP, UNKNOWN CMRN: [id number] Room: [place] [address] SSN: [id number] IMAGING SERVICES Ordering Prov: N/A Accession Number: [id number] Interpretation LEFT HAND, 3 VIEWS, 02/08/2008 History: [...] Procedure Note Christiano Chen MD - 02/09/[address] [address] Admit Date: 02/08/2008 GLADYS FREDERICK Sex: F Admit Prov: NAYELI ALVES Date: 1965 Primary Care Prov: PCP, UNKNOWN CMRN: [id number] Room: [place] [address] SSN: [id number] IMAGING SERVICES Ordering Prov: N/A Interpretation LEFT [...] CDT) PHOSPHORUS 2.2(L) 2.5 - 4.5 mg/dL [facility] Blood specimen (specimen) 02/08/2008 3:35 PM CDT 02/08/2008 3:53 PM CDT Nayeli Alves MD CHEMISTRY ORDERABLES Final Re sult Performing Organization Address [facility] Co de Phone Number [facility] [address] [facility] [place] [address] * MAGNESIUM LEVEL (02/08/2008 3:35 PM CDT) MAGNESIUM 2.1 1.5 - 2.5 mg/dL [facility] Blood specimen (specimen) 02/08/2008 3:35 PM CDT 02/08/2008 3:53 PM CDT Nayeli Alves MD CHEMISTRY ORDERABLES Final Re sult Performing Organization Address [facility] Co de Phone Number [facility] [address] [place] [address] * (ABNORMAL) CALCIUM IONIZED (02/08/2008 3:35 PM CDT) CALCIUM IONIZED 4.38(L) 4.76 - 5.16 mg/dL [facility] Blood specimen (specimen) 02/08/2008 3:35 PM CDT 02/08/2008 3:55 PM CDT Nayeli Alves MD CHEMISTRY ORDERABLES Final Re sult Performing Organization Address [facility] Co de Phone Number [facility] [address] [place] [address] * URINALYSIS (02/08/2008 3:35 PM CDT) Pathologist [facility] SPECIFIC GRAVITY UA 1.008 1.001 - 1.035 [facility] BLOOD UA Negative Negative [facility] GLUCOSE UA Negative Negative [facility] COLOR UA Pale Yellow [facility] NITRITE UA Negative Negative [facility] UROBILINOGEN UA <1 <=1 mg/dL [facility] PH UA 5.0 5.0 - 8.0 [facility] KETONES UA Negative Negative [facility] CLARITY UA Clear Clear [facility] PROTEIN UA Negative Negative [facility] BILIRUBIN UA Negative Negative [facility] LEUKOCYTE ESTERASE UA Negative Negative [facility] Urine specimen (specimen) 02/08/2008 3:35 PM CDT 02/08/2008 3:53 PM CDT Nayeli Alves MD URINE ORDERABLES Final Result Performing Organization Address [facility] Co de Phone Number [facility] [address] [place] [address] * (ABNORMAL) COMPREHENSIVE METABOLIC PANEL (02/08/2008 3:35 PM CDT) CHLORIDE 107 96 - 108 mmol/L [facility] CREATININE 0.62 0.51 - 0.95 mg/dL [facility] ALT 15 0 - 31 U/L [facility] SODIUM 139 135 - 145 mmol/L [facility] ALKALINE PHOSPHATASE 49 35 - 104 U/L [facility] BILIRUBIN TOTAL 0.3 0.2 - 1.0 mg/dL [facility] POTASSIUM 3.4(L) 3.5 - 4.9 mmol/L [facility] TOTAL PROTEIN 4.6(L) 6.3 - 8.6 g/dL [facility] GLUCOSE 116(H) 65 - 99 mg/dL [facility] AST 14 12 - 32 U/L [facility] BUN 9 6 - 20 mg/dL [facility] CO2 24 22 - 30 mmol/L [facility] CALCIUM 7.3(L) 8.4 - 10.2 mg/dL [facility] ALBUMIN 2.0(L) 3.4 - 4.8 g/dL [facility] GFR, >60 >=60 mL/min/1. 7 sq meter [facility] GFR >60 >=60 mL/min/1. 7 sq meter [facility] Comment: Estimated GFR rate interpretative information for both Americans and non- Americans is available on the [facility] Intranet at: [email or web address] Select: Lab Policies and Procedures Select: Reference Ranges - GFR Blood specimen (specimen) 02/08/2008 3:35 PM CDT 02/08/2008 3:53 PM CDT Nayeli Alves MD CHEMISTRY ORDERABLES Edited [facility] [address] [place] [address] * (ABNORMAL) CBC WITH DIFFERENTIAL (02/08/2008 3:35 PM CDT) RBC 2.92(L) 3.90 - 4.90 M/uL [facility] MCHC 33.1 31.5 - 35.5 % [facility] MCV 84.9 82.0 - 99.0 fL [facility] PLATELETS 206 140 - 350 K/uL [facility] HEMOGLOBIN 8.2(L) 11.8 - 14.8 g/dL [facility] RDW 13.5 11.5 - 14.5 % [facility] WBC 3.1(L) 4.0 - 9.8 K/uL [facility] MCH 28.1 27.2 - 32.6 pg [facility] MPV 9.4 9.3 - 12.4 fL [facility] HEMATOCRIT 24.8(L) 35.5 - 44.0 % [facility] RDW-STDEV 41.1 37.1 - 48.7 fL [facility] PROMYELOCYTE 1(H) <=0 % [facility] MONOCYTES 1(L) 3 - 13 % [facility] POLYCHROMASIA Slight [facility] LYMPHOCYTE ABSOLUTE 1.74 0.70 - 4.50 K/uL [facility] METAMYELOCYTE 2(H) <=0 % [facility] BANDS 19(H) 0 - 5 % [facility] POIKILOCYTES Slight [facility] BASOPHILS ABSOLUTE 0.00 0.00 - 0.20 K/uL [facility] EOSINOPHILS 0 0 - 7 % [facility] TOXIC GRANULATION Moderate [facility] PLATELET EST. Consistent w/ count Normal [facility] MONOCYTE ABSOLUTE 0.03(L) 0.10 - 1.30 K/uL [facility] LYMPHOCYTES 56(H) 16 - 45 % [facility] MACROCYTES Slight [facility] MYELOCYTES 1(H) <=0 % [facility] NEUTROPHIL ABSOLUTE 1.21(L) 1.90 - 7.00 K/uL [facility] NEUTROPHILS, SEG 20(L) 45 - 70 % [facility] ANISOCYTOSIS Slight [facility] BASOPHILS 0 0 - 2 % [facility] REVIEWED ON SMEAR Plt OK by Smear Rev. [facility] EOSINOPHIL ABSOLUTE 0.00 0.00 - 0.70 K/uL [facility] Blood specimen (specimen) 02/08/2008 3:35 PM CDT 02/08/2008 3:55 PM CDT Nayeli Alves MD HEMATOLOGY ORDERABLES Edited Performing Organization Address City/[facility]/ZIP Co de Phone Number [facility] [address] [place] [address] * NASAL CULTURE (02/08/2008 2:24 PM CDT) PRELIMINARY REPORT Pending [facility] FINAL REPORT No methicillin resistant Staphylococcus aureus isolated. No Acinetobacter isolated. [facility] Nares 02/08/2008 2:24 PM CDT 02/08/2008 2:48 PM CDT Nayeli Alves MD MICROBIOLOGY - GENERAL ORDERA BLES Final Result Performing Organization Address City/[facility]/ZIP Co de Phone Number [facility] [address] [place] [address] * BURN WOUND CULTURE (02/08/2008 2:24 PM CDT) PRELIMINARY REPORT Pending [facility] FINAL REPORT No growth 48 hours [facility] Burn tissue (specimen) 02/08/2008 2:24 PM CDT 02/08/2008 2:48 PM CDT Nayeli Alves MD MICROBIOLOGY - GENERAL ORDERA BLES Final Result [facility] [address] [place] [address] * MISCELLANEOUS CULTURE (02/08/2008 2:24 PM CDT) PRELIMINARY REPORT Pending [facility] FINAL REPORT No methicillin resistant Staphylococcus aureus isolated. No Acinetobacter isolated. [facility] Perianal 02/08/2008 2:24 PM CDT 02/08/2008 2:48 PM CDT Nayeli Alves MD MICROBIOLOGY - GENERAL ORDERA BLES Final Result Performing Organization Address [facility] Co de Phone Number [facility] [address] [place] [address] * XR FOOT 3+ VW LEFT (02/08/2008 [...]
--- OUTSIDE RECORDS SUMMARY | 2025-01-25 03:03 | XMS_ITS | Encounter Summary ---
Author Organization [facility] Address [address] [place] [address] Care Team Providers Care Rac Specialist Name Role Phone Unavailable Primary Care Provider Unavailabl e Encounter Details Date Type Department Care Team (Latest Contact Info) Description 08/23/2008 Outpatient Historical HIS ORTHOPEDIC TRAUMA Janes Parish, DO [address] [place] [address] Other Orthopedic Aftercare Social History Tobacco Use Types Packs/Day Years Used Date Smoking Tobacco: Never Assessed Comments Unknown Sex and Gender Information Value Date Recorded Sex Assigned at Not on file Legal Sex Female 4:29 AM MANAGER ORACLE RETAIL Gender Identity Not on file Sexual Orientation Not on file documented as of this encounter Plan of Treatment Not on file documented as of this encounter Procedures Procedure Name Priority Date/Time Associated Diagnosis Comments XR WRIST 3+ VW LEFT Routine 08/23/2008 1 0:37 AM MANAGER ORACLE RETAIL documented in this encounter Results * XR WRIST 3+ VW LEFT (08/23/2008 10:37 AM MANAGER ORACLE RETAIL) Anatomical Region Laterality Modality Wrist / Hand Other 08/23/2008 10:3 7 AM MANAGER ORACLE RETAIL Narrative 08/25/2008 11:48 PM MANAGER ORACLE RETAIL [facility] [address] [place], [place] [address] Admit Date: 08/23/2008 ASHLEE FREDERICK Sex: F Admit Prov: JANES PARISH Date: 1965 Primary Care Prov: CMRN: [id number] [facility] SS[facility]: [id number] IMAGING SERVICES Ordering Prov: JANES PARISH Accession Number: [id number] Interpretation This procedure was performed at the request of the orthopedic physician. Please see the orthopedic physician s report for details, which can be found in the patient s medical record. Dictated by: RADIOLOGY, DEPARTMENT O Electronically signed by: RADIOLOGY, DEPARTMENT 08/25/2008 23:48 Transcribed: 08/25/2008 23:41 AMK Procedure Note Radiology, Radiologist - 08/25/2008 [facility] [address] [place], [place] [address] Admit Date: 08/23/2008 ASHLEE FREDERICK Sex: F Admit Prov: JANES PARISH Date: 1965 Primary Care Prov: CMRN: [id number] Room: [facility] SSN: [id number] IMAGING SERVICES Ordering Prov: JANES PARISH Interpretation [...]
--- OUTSIDE RECORDS SUMMARY | 2025-01-25 03:03 | XMS_ITS | Encounter Summary ---
Author Organization [facility] Address [address] [place] [address] Care Team Providers Care Site Safety Coordinator Name Role Phone Unavailable Primary Care Provider Unavailabl e Encounter Details Date Type Department Care Team (Late st Contact Info) Description 12/20/2008 Outpatient Historical HIS ORTHOPEDIC TRAUMA JemRaul, DO [address] [facility] [address] [place] [address] Social History Tobacco Use Types Packs/Day Years Used Date Smoking Tobacco: Never Alcohol Use Standard Drinks/Week Comments Not Asked 0 (1 standard drink = 0.6 oz pur e alcohol) Comments No Sex and Gender Information Value Date Recorded Sex Assigned at Not on file Legal Sex Female 4:29 AM COMMUNITY PROGRAM ASSISTANT Gender Identity Not on file Sexual Orientation Not on file documented as of this encounter Plan of Treatment Not on file documented as of this encounter Visit Diagnoses Not on filedocumented in this encounter
--- OUTSIDE RECORDS SUMMARY | 2025-01-25 03:04 | XMS_ITS | Encounter Summary ---
Author Organization [facility] Address [address] [place] [address] Care Team Providers Care Casino Floor Runner Name Role Phone Unavailable Primary Care Provider Unavailabl e Encounter Details Date Type Department Care Team (Late st Contact Info) Description 09/13/2008 Outpatient Historical HIS ORTHOPEDIC TRAUMA Janes Parish, DO [address] [facility] [address] [place] [address] Social History Tobacco Use Types Packs/Day Years Used Date Smoking Tobacco: Never Assessed Comments Unknown Sex and Gender Information Value Date Recorded Sex Assigned at Not on file Legal Sex Female 4:29 AM CONTEMPORARY OR MODERN DANCER Gender Identity Not on file Sexual Orientation Not on file documented as of this encounter Plan of Treatment Not on file documented as of this encounter Procedures Procedure Name Priority Date/Time Associated Diagnosis Comments XR WRIST 3+ VW LEFT Routine 09/13/2008 1 :33 PM CONTEMPORARY OR MODERN DANCER documented in this encounter Results * XR WRIST 3+ VW LEFT (09/13/2008 1:33 PM CONTEMPORARY OR MODERN DANCER) Anatomical Region Laterality Modality Wrist / Hand Other 09/13/2008 1:33 PM CONTEMPORARY OR MODERN DANCER Narrative 09/15/2008 10:46 AM CONTEMPORARY OR MODERN DANCER [facility] [address] [place], [place] [address] Admit Date: 09/13/2008 ASHLEE FREDERICK Sex: F Admit Prov: JANES PARISH Date: 1965 Primary Care Prov: CMRN: [id number] Room: [facility] SSN: [id number] IMAGING SERVICES Ordering Prov: JANES PARISH Accession Number: [id number] Interpretation This procedure was performed at the request of the orthopedic physician. Please see the orthopedic physician s report for details, which can be found in the patient s medical record. Dictated by: RADIOLOGY, DEPARTMENT O Electronically signed by: RADIOLOGY, DEPARTMENT 09/15/2008 10:43 Transcribed: 09/15/2008 10:31 AMK Procedure Note Radiology, Radiologist - 09/15/2008 [facility] [address] [place], [place] [address] Admit Date: 09/13/2008 ASHLEE FREDERICK Sex: F Admit Prov: JANES PARISH Date: 1965 Primary Care Prov: CMRN: [id number] [facility] [id number] IMAGING SERVICES Ordering Prov: JANES PARISH Interpretation [...]
--- OUTSIDE RECORDS SUMMARY | 2025-01-25 03:04 | XMS_ITS | Encounter Summary ---
Author Organization [facility] Address [address] [place] [address] Care Team Providers Care Tripper Name Role Phone Unavailable Primary Care Provider Unavailabl e Encounter Details Date Type Department Care Team (Latest Contact Info) Description 08/26/2008 Outpatient Historical [facility] Janes Parish, DO [address] [facility] [address] [place] [address] Encounter for Removal of Internal Fixation Device Social History Tobacco Use Types Packs/Day Years Used Date Smoking Tobacco: Never Assessed Comments Unknown Sex and Gender Information Value Date Recorded Sex Assigned at Not on file Legal Sex Female 4:29 AM FIELD SALES EXECUTIVE Gender Identity Not on file Sexual Orientation Not on file documented as of this encounter Plan of Treatment Not on file documented as of this encounter Procedures Procedure Name Priority Date/Time Associated Diagnosis Comments XR FLUORO LESS THAN 1 HOUR Routine 09/07/2008 11:59 AM FIELD SALES EXECUTIVE HEMOGLOBIN AND HEMATOCRIT Stat 09/07/2008 10:50 AM FIELD SALES EXECUTIVE POC , URINE Routine 09/07/2008 10:50 AM FIELD SALES EXECUTIVE documented in this encounter Results * XR FLUORO < 1 HOUR (09/07/2008 11:59 AM FIELD SALES EXECUTIVE) Anatomical Region Laterality Modality Other 09/07/2008 11:5 9 AM FIELD SALES EXECUTIVE Narrative 09/11/2008 3:32 PM FIELD SALES EXECUTIVE [place] [address] [place], [place] [address] Admit Date: 09/07/2008 ASHLEE FREDERICK Sex: F Admit Prov: JANES PARISH Date: 1965 Primary Care Prov: CMRN: [id number] Room: [facility] N: [id number] IMAGING SERVICES Ordering Prov: JANES PARISH Accession Number: [id number] Interpretation Fluoroscopic guidance was used by the surgeon to assist with performance of this intra-operative procedure. Please refer to surgeon s operative report for specific details. Dictated by: RADIOLOGY, DEPARTMENT O Electronically signed by: RADIOLOGY, DEPARTMENT 09/11/2008 15:31 Transcribed: 09/11/2008 15:17 AMK Procedure Note Radiology, Radiologist - 09/11/[address] [address] Admit Date: 09/07/2008 EVGENYASHLEE CARVAJAL Sex: F Admit Prov: JANES PARISH Date: 1965 Primary Care Prov: CMRN: [id number] Room: [facility] SSN: [id number] IMAGING SERVICES Ordering Prov: JANES PARISH Interpretation Fluoroscopic guidance was used by the surgeon to assist withperformance of this intra-operative procedure. Please refer to surgeon s operativereport for specific details. Dictated by: RADIOLOGY, DEPARTMENT O Electronically signed by: RADIOLOGY, DEPARTMENT 09/11/2008 15:31 Transcribed: 09/11/2008 15:17 AMK us Janes Parish DO DIAGNOSTIC IMAGING ORDERABLES Final Result * POC , URINE (09/07/2008 10:50 AM FIELD SALES EXECUTIVE) , URINE POC Negative Negative [facility] Urine specimen (specimen) 09/07/2008 10:50 AM FIELD SALES EXECUTIVE 09/07/2008 10:50 AM FIELD SALES EXECUTIVE us Janes Parish DO POINT OF CARE TESTING Final R esult INTERFACE SYSTEM Refer to clinic/hospital department [facility] CLIA# [id number] [address] [place] [address] * HEMOGLOBIN AND HEMATOCRIT (09/07/2008 10:50 AM FIELD SALES EXECUTIVE) HEMATOCRIT 42.5 35.5 - 44.0 % [facility] HEMOGLOBIN 14.4 11.8 - 14.8 g/dL [facility] Blood specimen (specimen) 09/07/2008 10:50 AM FIELD SALES EXECUTIVE 09/07/2008 11:02 AM FIELD SALES EXECUTIVE Narrative INTERFACE SYSTEM - 09/07/2008 11:09 AM FIELD SALES EXECUTIVE rm 15 Janes Parish DO HEMATOLOGY ORDERABLES Final R esult INTERFACE SYSTEM Refer to clinic/hospital department [facility] CLIA# [id number] [address] [place] [address] documented in this encounter Visit Diagnoses Diagnosis Encounter for removal of internal fixation device documented in this encounter
[2025-01-25] MEDS: ACETAMINOPHEN 500 MG TABLET 1000 MG PO (09:46)
[2025-01-25] MEDS: KETOROLAC 15 MG/ML VIAL (*BKC) IV PUSH (09:47)
[2025-01-25] MEDS: LACTATED RINGERS 1,000 ML 30 ML IV CONT ×2 (11:00→14:03)
--- NOTE | 2025-01-25 11:10 | WPDHPUPDATE1 ---
History and Physical Update Update Date/Time: 01/25/25 11:10 History and Physical has been reviewed, including an updated exam of the patient. There are NO changes in the patient's condition. Risks, benefits, and alternatives have been discussed and questions answered. Patient agrees to proceed with procedure.
--- NOTE | 2025-01-25 11:13 | P.PNAN_ITS ---
Anes - Initial Pre Proc Eval Procedure: Operation Date: 01/25/25 11:00 Proposed Procedures p Laparoscopic Incisional Hernia Repair with Mesh, Davinci Assisted - Madi Anglin DO Date/Time: 01/25/25 11:13 Surgeon: Madi Anglin DO Pre Op Diagnosis: Inc Hernia (6cm) Patient Data Age: 59 Gender: F Height: 1.68 m Weight: 87.9 kg Last Vital Signs Temp 36.3 C L 01/25/25 09:21 Pulse 64 01/25/25 09:21 Resp 16 01/25/25 09:21 BP 127/74 01/25/25 09:21 Pulse Ox 99 01/25/25 09:21 Allergies Allergy/AdvReac Type Severity Reaction Status Date / Time No Known Allergies Allergy Verified 01/25/25 09:20 Home Medications ?Medication ?Instructions ?Recorded ?Confirmed ?Type fluticasone propionate 50 See Rx Instructions .Route 10/09/20 01/25/25 Rx mcg/actuation nasal .COMPLEX #16 grams spray,suspension chlorthalidone 25 mg tablet See Rx Instructions .Route 04/21/24 01/25/25 Rx .COMPLEX #90 tabs multivitamin (Daily Multi-Vitamin 1 tablet PO DAILY 01/14/25 01/14/25 History tablet) tirzepatide (weight loss) 10 10 mg (0.5 mL) subcut WEEKLY #2 mL 01/21/25 01/25/25 Rx mg/0.5 mL subcutaneous pen injector (Zepbound) Patient hx anesthesia problems: none Family hx anesthesia problems: none Results Review: All pre-operative results and documents have been reviewed as part of the pre- operative evaluation. [facility] Past Medical History Medical History Postmenopausal Screening for breast cancer Screening for colon cancer Vitamin D deficiency, unspecified Hyperlipidemia Hypertension Surgical History Surgical History History of skin graft History of appendectomy Family History Family History Mother COPD (chronic obstructive pulmonary disease) Father , from [place] age 50 Acute myocardial infarction Sibling Brain cancer Social History Social History Smoking status: Never smoker Second hand tobacco smoke exposure: No Alcohol intake: current Alcohol use details: rarely Substance use: never Substance use type: does not use Lack of Transportation: No Lack of Food: Never True Current Housing: I Have Housing Concerned About Future Housing: No Difficulty Paying Gas/Electric Bills: No Difficulty Paying for Meds: No Currently Unemployed: No Education: Associate Degree Difficulty w/ Childcare or Family Care: No Living arrangements: with family Occupation/Education: occupation 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 Gender identity (if verbalized by the patient): Female Sexual Orientation (if Verbalized by the Patient): Straight or Heterosexual Spiritual care concerns: No Anes - Eval Final PreProcedure Day of Procedure 01/25/25 11:13 Patient weight: obese Heart: regular rate and rhythm Lungs: clear to auscultation Airway: Mallampati scale class II Neurological: alert and oriented Last oral intake: >/= 8 hours ASA classification: III Emergent: no Anesthetic plan: proceed Anesthesia type and monitoring: general ETT and standard monitoring Results Review: All pre-operative results and documents have been reviewed as part of the pre- operative evaluation. Informed Consent: The patient's anesthetic plan and its attendant risks and benefits were discussed with the patient/family/POA. Questions were solicited and answers provided to the satisfaction of the patient/family/POA.
[2025-01-25] MEDS: ceFAZolin 2 GM/D5W 50 ML 2 GM/50 ML BAG IVPB (11:48)
[2025-01-25] MEDS: BUPIVACAINE/EPINEPHRINE 0.5% 50 ML VIAL 30 ML INFILTRATE (12:22)
--- NOTE | 2025-01-25 14:03 | W.PM.PROC2 ---
Procedure Note - Detailed Date of Procedure 01/25/25 Pre-op Diagnosis Incisional hernia Post-op Diagnosis Same (6 cm Incisional hernia) Procedure Performed Laparoscopic 6cm incisional hernia repair with mesh, da Era assisted Surgeon Madi Anglin DO Anesthesia General and Local (0.5% bupivacaine with epinephrine) Indications This is a 59-year-old woman who presented with a incisional hernia. She has a history of open appendectomy about 20 years ago. This was done through a low vertical midline incision. She began noticing a bulge just to the right of her umbilicus and would have some occasional discomfort with this. A CT was obtained which showed evidence of multiple incisional hernias with the widest measuring about 4 cm wide. Discussions were made with the patient about treatment options and decision was made to proceed with robotic assisted laparoscopic incisional hernia repair with mesh. Findings Robotic assisted laparoscopic incisional hernia repair with mesh was performed. The patient was found to have multiple incisional hernias near the umbilicus. The widest hernia measured about 4 cm x 4 cm and then just above this was another hernia measured about 2 cm wide. The total distance encompassing the 2 hernias was about 6 cm in vertical dimension. A robotic intraperitoneal onlay mesh technique was utilized for repair. There were several omental adhesions around the abdominal wall that were taken down 1st. There was then also some epiploic appendages from the transverse colon that was going up into the hernia defect. These were taken down with careful dissection as well. The fascial defect was then closed using 0 Stratafix running absorbable suture. A Ventralight ST 20 cm x 15 cm mesh with Echo 2 positioning device was then placed. The mesh was then secured around the entire perimeter using 2-0 Stratafix running absorbable suture. No specimens were obtained for pathology. Description of Procedure Procedure as well as risks, benefits, and alternatives were discussed with the patient. Written consent was obtained and placed in chart prior to procedure. Patient was brought back to surgical suite. She was placed supine on operating table. Time-out was done to confirm patient and procedure. She was then intubated by the anesthesia department. A bump was placed under her left hip, and the bed was flexed slightly to extend the space between her costal margin and iliac crest. Her abdomen was prepped and draped in sterile fashion using chlorhexidine prep. A 5 millimeter incision was made in the left upper quadrant, and a 5 millimeter Optiview trocar was advanced through the abdominal layers under direct visualization. Once inside the abdominal cavity, carbon dioxide insufflation was used to create a pneumoperitoneum. Her abdomen was inspected. An 8 millimeter incision was made in the left lower quadrant, and an 8 millimeter robotic trocar was placed under direct visualization. Another 8 millimeter incision was made in the left lateral abdomen, and an 8 millimeter robotic trocar was placed under direct visualization. 0.5% bupivacaine with epinephrine was infiltrated around each port site. The 5 millimeter port was removed, and an 12 mm robotic trocar was placed under direct visualization. The robotic arms were brought up to the patient's bedside and secured to the ports. The camera and instruments were inserted, and I then moved over to the robotic console and took control of the camera and instruments. After careful thorough inspection of the abdominal cavity, I began my dissection at the hernia. The omental adhesions were carefully taken down using scissors with electrocautery. There was also some omentum and epiploic appendages going up into the hernia defect there were carefully taken down using scissors with electrocautery. The falciform ligament was taken down for several cm cephalad using scissors with electrocautery. I then measured the hernia size. There were actually multiple incisional hernias along the scar near the umbilicus. The hernias combined measured 6 cm vertically by 4 cm wide. The fascia was closed using an 0-Stratafix running suture in a vertical fashion. A Ventralight ST 20 cm x 15 cm mesh was then placed within the abdominal cavity. This was oriented vertically with the mesh centered on the hernia defect. A suture grasper was then passed to grasp the suture in the center of the mesh and pulled this to the central portion of the hernia repair. The mesh was then secured circumferentially to the abdominal wall using 2-0 Stratafix running absorbable suture. The Echo 2 positioning device was then removed through the 12 mm port. The repair was inspected, and one final inspection was made around the abdominal cavity. The robotic instruments were then removed, and the robotic arms were disengaged from the trocars. The left upper quadrant port was removed and a Conner-Rian cone was used to approximate the fascia with an 0 Vicryl simple interrupted suture. The ports were then removed under direct visualization, the camera was removed, and the pneumoperitoneum was released. The skin of the incisions was then approximated using 4-0 Monocryl subcuticular suture. Exofin glue was then applied on top. The patient was then awakened from anesthesia, extubated, and transferred to recovery. Implants Ventralight ST 20 cm x 15 cm mesh with Echo 2 positioning device Estimated Blood Loss 10 Complications No immediate complications Condition Stable Disposition Same day [facility] Billing Surgery - Charge Forward: Surgery Billing
[2025-01-25] MEDS: fentaNYL CITRATE INJ (*CRX) 100 MCG/2 ML VIAL 25 MCG IV PUSH (15:25)
[2025-01-25] MEDS: oxyCODONE HCL (*CRX) 5 MG TAB IR PO (15:55)
[2025-01-25] MEDS: ONDANSETRON INJ 4 MG/2 ML VIAL IV PUSH (16:15)
== END 2025-01-25 16:24 | disposition home or self-care (01) ==
PROVIDERS: PCP Family Medicine; Visit Provider Surgery
PROC: (CPT 49593; principal; 2025-01-25 11:00)
DX: K43.2 Incisional hernia without obstruction or gangrene (principal); K66.0 Peritoneal adhesions (postprocedural) (postinfection); E78.5 Hyperlipidemia, unspecified; I10 Essential (primary) hypertension; E55.9 Vitamin D deficiency, unspecified; E66.9 Obesity, unspecified; Z68.31 Body mass index [BMI] 31.0-31.9, adult; Z79.85 Long-term (current) use of injectable non-insulin antidiabetic drugs; Z79.899 Other long term (current) drug therapy; Z98.890 Other specified postprocedural states; Z80.8 Family history of malignant neoplasm of other organs or systems; Z82.49 Family history of ischemic heart disease and other diseases of the circulatory system
CPT/HCPCS: 49593; S2900; A9270; C1781; J0690; J1100; J1171; J1885; J2250; J2405; J2704; J3010; J7030; J7120